=== PATIENT | female | born 1965 | race Caucasian/White ===

== ENCOUNTER 2020-01-05 18:37 | Observation (INO) | payer OTHER, SELFPAY ==
[2020-01-05] VITALS (8 sets, daily range): BP systolic 126–177; BP diastolic 66–99; PULSE 76–96; RESP 14–22; TEMP 36.1–36.8; O2SAT 93–100; BMI 44.3
--- NOTE | ~2020-01-05 | NM_ITS ---
EXAMINATION: RENETTA holman renal scan DATE: 01/07/2020 13:53 INDICATION: Left hydronephrosis. TECHNIQUE: 8.3 mCi Tc-99m MAG3 was administered IV. 40 mg furosemide was administered IV immediately afterward. The patient was scanned in the supine position. A posterior abdominal radionuclide angiog jazmín was obtained. A subsequent time course of static images of the kidneys, ureters, and bladder was obtained. COMPARISON: Postoperative CT studies dated 01/06/2020 and 01/05/2020 respectively. FINDINGS: The posterior abdominal radionuclide angiogram and sequential static images show normal position, and morphology of the kidneys. There is relative enlargement of the left kidney with central photopenic defect consistent with hydronephrosis. Peak renal parenchymal uptake was >30 min in left kidney and 3 .5 min in right kidney (normal peak 3-5 minutes). The relative early renal uptake was 26% on the rig ht and 74% on the left (<40% is abnormal). No abnormalities of the ureters or bladder are seen. There is no evident activity clearance from the left kidney with continually rising left renal activi ty curve throughout the 30 minutes of imaging. T1/2 for clearance of activity from the right kidney and proximal collecting system was 19 minutes. Notes on interpretation: T1/2 <10 minutes is normal, 10-15 minutes is low grade obstruction of questi onable clinical significance, 15-20 minutes is partial obstruction that is likely clinically signific ant, >20 minutes is high grade obstruction. Note that false positives may be seen with supine positio walter, dehydration, severely dilated nonobstructed kidney, atonic collecting system, poor renal functi on, and chronic furosemide use. IMPRESSION: 1. Severe left hydronephrosis with no evident excretion of activity into the centrally dilated renal collecting system and with significantly decreased relative left renal function. 2. Delayed right renal activity clearance with T1/2 of 19 minutes which could be due to partial obst ruction which is likely clinically significant or false-positive due to poor renal function. Reviewed, dictated and finalized at location A. IMPRESSION: 1. Severe left hydronephrosis with no evident excretion of activity into the c entrally dilated renal collecting system and with significantly decreased relat carlos left renal function. 2. Delayed right renal activity clearance with T1/2 of 19 minutes which could be due to partial obstruction which is likely clinically significant or false-p ositive due to poor renal function.
--- NOTE | ~2020-01-05 | XR_ITS ---
EXAMINATION: XR abdomen/kub 1V DATE: 01/05/2020 21:49 INDICATION: Right renal stone TECHNIQUE: A supine view of the abdomen on 2 radiographs was obtained. COMPARISON: CT dated 01/05/2020 FINDINGS: Severe left-sided and moderate right-sided hydroureteronephrosis. 3 mm obstructing stone at right ure terovesicular junction is subtly visible projecting over the coccyx. Postoperative status with surgic al clips in the pelvis and along both sides of the lower lumbar spine. Moderate to severe bilateral h ip osteoarthritis. Cholecystectomy clips in the right upper quadrant. Visualized lung bases are clear . Normal bowel gas pattern. IMPRESSION: 1. 3 mm obstructing stone at the right ureterovesicular junction. 2. Moderate right-sided and severe left-sided hydroureteronephrosis. Reviewed, dictated and finalized at location A.
--- NOTE | ~2020-01-05 | XR_ITS ---
EXAMINATION: XR retrograde pyelo w/stent RT DATE: 01/06/2020 09:48 INDICATION: Burning urination and right-sided pain. TECHNIQUE: 36 fluoroscopic images of the abdomen and pelvis were obtained during procedure performed by Dr. Jacome. Radiologist was not present for the imaging or procedure. The amount of fluoroscopy time used during this procedure was 1.2 minutes. COMPARISON: CT dated 01/05/2020 FINDINGS: Initial images demonstrate cannulation and advancement of a wire along the right ureter into the righ t renal pelvis. Injection of contrast into the right ureter demonstrates mild to moderate right hydro nephrosis. Subsequently a right internal ureteral stent is placed with loops formed in the right sheri l pelvis and in the bladder. Contrast is seen within the severely dilated left renal collecting syste m and ureter on the initial image suggests this represents residual excreted contrast from the earlie r contrast-enhanced CT study. There are multiple images demonstrating what appears be an unsuccessful attempt to advance a wire or catheter beyond the distal left ureter. Postoperative changes are seen with surgical clips in the pelvis and on either side of the lumbosacral spine. IMPRESSION: 1. Fluoroscopy utilized during right internal ureteral stent placement mild to moderate right hydrone phrosis. 2. Severe left hydroureteronephrosis with apparent unsuccessful attempt at left ureteral stent placem ent with wire appearing advanced only into the distal left ureter. See procedure note for further det ail. Reviewed, dictated and finalized at location A. IMPRESSION: 1. Fluoroscopy utilized during right internal ureteral stent placement mild to moderate right hydronephrosis. 2. Severe left hydroureteronephrosis with apparent unsuccessful attempt at left ureteral stent placement with wire appearing advanced only into the distal lef t ureter. See procedure note for further detail.
--- NOTE | ~2020-01-05 | CT_ITS ---
EXAMINATION: CT abdomen pelvis w con EXAM DATE: 01/05/2020 19:55 INDICATION: Right lower quadrant pain. TECHNIQUE: Spiral CT of the abdomen and pelvis was performed following intravenous injection of 100 m L Omnipaque 350. Axial, coronal and sagittal images were reviewed. The dose-length product (DLP) fo r this examination was 1247.18 mGy-cm. The exposure was tailored according to patient size (auto mA exposure control), and iterative reconstruction (ASIR) was used as additional dose reduction techniqu e. Comparison is made to prior examination from 12/07/2018. FINDINGS: The liver, spleen, adrenal glands and pancreas are unremarkable. Gallbladder is unremarkab le. No biliary obstruction. There is a right UVJ 3 mm stone with mild right-sided obstructive nephr opathy. The uterus is not identified and has likely been surgically resected. The bladder is unrema rkable. There is no retroperitoneal or pelvic lymphadenopathy. The appendix is normal. The stomach and small bowel are unremarkable. There is expected amount of c olonic stool. No free intraperitoneal gas. The heart is normal in size. There are no pericardial or pleural effusions. The lung bases are unremarkable. There are no osteoblastic or osteolytic les ions identified. IMPRESSION: 1. Right UVJ 3 mm stone, mild obstructive nephropathy. Urologist consultants would appreciate KUB as baseline for follow-up, treatment planning. Reviewed, dictated and finalized at location A.
[2020-01-05 19:21] LABS: Basophils Percent Auto 0.3 % (0.2-1.2); Eosinophils Percent Auto 0.4 % (0-4.4); Hematocrit 41.5 % (37.0-47.0); Hemoglobin 13.6 g/dL (12.0-15.0); Immature Granulocyte Absolute 0.04 K/mm3 (0.00-0.031); Immature Granulocyte Percent A 0.4 % (0-0.5); Lymphocytes Absolute Auto 0.96 K/mm3 (0.9-3.2); Lymphocytes Percent Auto 9.6 % (18.3-44.2); Mean Corpuscular HGB Conc 32.8 g/dl (32-36); Mean Corpuscular Hemoglobin 29.3 pg (26-34); Mean Corpuscular Volume 89.4 fl (80-100); Mean Platelet Volume 10.2 fl (7.4-10.4); Monocytes Absolute Auto 0.7 K/mm3 (0.1-0.6); Monocytes Percent Auto 6.6 % (2.6-8.5); Neutrophils Absolute Auto 8.2 K/mm3 (1.3-6.7); Neutrophils Percent Auto 82.7 % (45.5-73.1); Platelet Count Result 293 k/mm3 (150-375); Red Blood Count 4.64 M/mm3 (4.2-5.4); Red Cell Distribution Width 13.4 % (11.5-14.5)
[2020-01-05 19:34] LABS: Add Urine Microscopic? YES; Appearance Urine Clear (Clear); Bilirubin Urine Negative (Negative); Blood Urine 3+ (Negative); Color Urine Yellow (Yellow); Glucose Urine UA Negative (Negative); Ketones Urine Negative (Negative); Leukocyte Esterase Ur Negative LEU/UL (Negative); Mucus Urine Rare /lpf; Nitrate Urine Negative (Negative); Protein Urine Negative (Negative); RBC Urine 21-50 /hpf (0-2); Specific Grav Ur 1.015 (1.001-1.035); Squamous Epithelial Cell Urine Occasional /hpf (Few); Urobilinogen Urine Negative mg/dL (<2.0)
--- NOTE | 2020-01-05 19:35 | ED.ABDPAIN ---
HPI - Abdominal Pain General Chief Complaint: Abdominal Pain Stated Complaint: R SIDED ABD PAIN, N/V Time Seen by Provider: 01/05/20 19:29 History of Present Illness HPI narrative: Patient presents with right lower abdominal pain since last night. She had symptoms of UTI and called her urologist this morning and was put on Levaquin. About 3 in the afternoon the lower right pain got worse. She gauges the pain at 8 out of 10. She has been vomiting with nausea. She had a fever of 100.2. She still has her appendix. She has a surgical history of cholecystectomy, tonsillectomy, and pelvic surgery due to cervical cancer. She has lymphedema from radiation to the pelvis. Does not smoke cigarettes, she rarely drinks alcohol, does not do drugs. MD elicited complaint: abdominal pain Pertinent past history: other (Cervical cancer with surgery and radiation.) Onset (ago): day(s) Pain Consistency: constant Location: RLQ Severity: severe Pain scale (0-10): 8 Radiation: none Migration to: no migration Exacerbating factors: nothing Relieving factors: nothing Associated symptoms: nausea, vomiting, fever and chills Treatments prior to arrival: other (Levaquin) Related Data Home Medications Medication Instructions Recorded Confirmed ibuprofen 01/05/20 levothyroxine 01/05/20 lisinopril-hydrochlorothiazide tablet 01/05/20 nitrofurantoin monohyd/m-cryst 01/05/20 Allergies Allergy/AdvReac Type Severity Reaction Status Date / Time Sulfa (Sulfonamide AdvReac Intermediate NAUSEA Verified 01/05/20 18:53 Antibiotics) Review of Systems Review of Systems: Narrative: CONSTITUTIONAL: She has had fever. EYES: Denies visual changes, redness, or discharge. ENT: Denies rhinorrhea, congestion, sore throat, or otalgia. CARDIOVASCULAR: Denies chest pain, palpitations, or edema. RESPIRATORY: Denies cough or dyspnea. GASTROINTESTINAL: She has abdominal pain, nausea, vomiting, but not or diarrhea. GENITOURINARY: Denies dysuria or hematuria. SKIN: Denies rash or itching. MUSCULOSKELETAL: Denies back pain, joint pain, or myalgia. NEUROLOGIC: Denies headache, numbness, or weakness. . All systems reviewed & are unremarkable except as noted in HPI and below PMFSH Past Medical History Medical History History of cervical cancer Surgical History Surgical History (Updated 01/05/20 @ 19:39 by Elana Chavez MD) History of cholecystectomy History of tonsillectomy Social History Social History (Updated 01/05/20 @ 19:39 by Elana Chavez MD) Smoking status: Never smoker Alcohol intake: current Alcohol use details: Rarely Gender identity (if verbalized by the patient): Female Exam Narrative: Exam Narrative: GENERAL: Well-appearing, well-nourished, and in no acute distress. HEAD: Normocephalic, atraumatic. EYES: PERRLA and EOMI. ENT: Nares clear, no rhinorrhea or epistaxis. Mucous membranes dry. NECK: Supple. CHEST: Clear to auscultation. No respiratory distress. HEART: Regular rate and rhythm. No murmur heard. Normal peripheral pulses. ABDOMEN: Soft, nontender, nondistended, normal active bowel sounds. EXTREMITIES: Normal range of motion. Huge lymphedema SKIN: Warm, dry, no rash. NEURO: No focal deficits. Alert and oriented x3. PSYCH: Normal mood and affect. Const: General: no acute distress and alert Orientation/consciousness: patient oriented x3 Course Reevaluation(s) Reevaluation #1: Pdvi-lc-papk with the patient to explain about the 3 mm kidney stone. She says she still in a lot of pain, and still has the nausea. I will call the urologist to get her admitted to the hospital for overnight observation. Explained about straining the urine to find the stone. Date: 01/05/20 Time: 20:37 Consultations Consultation #1: Call the urologist on-call, Dr. Jacome. he will do the consult he requests that the hospitalist admit the patient. Date: 01/05/20 Time: 20:35 Consultati
[2020-01-05 19:41] LABS: Alanine Aminotransferase 23 U/L (4-35); Albumin Level 4.1 g/dL (3.5-5.1); Alkaline Phosphatase 89 U/L (38-126); Anion Gap 9 mmol/L (8-16); Aspartate Amino Transferase 24 U/L (14-36); Bilirubin,Total 0.3 mg/dL (0.2-1.3); Blood Urea Nitrogen 27 mg/dL (7-17); Calcium 9.1 mg/dL (8.4-10.2); Carbon Dioxide 27 mmol/L (22-30); Chloride 102 mmol/L (98-107); Estimated CRCL calculation 50 ml/min; Estimated Glomerular Filt Rate 36; Glucose 129 mg/dL (65-105); Lipase 55 U/L (23-300); Potassium 3.9 mmol/L (3.4-5.0); Sodium 138 mmol/L (137-145)
[2020-01-05] MEDS: SODIUM CHLORIDE 0.9% IV 1,000 ML 999 ML IV CONT ×2 (19:46→21:00)
[2020-01-05] MEDS: ONDANSETRON INJ 4 MG/2 ML VIAL IV PUSH ×2 (19:46→22:17)
[2020-01-05] MEDS: MORPHINE SULFATE 4 MG/ML INJ IV PUSH ×2 (19:46→21:00)
--- NOTE | 2020-01-05 20:10 | PC.NURSE ---
EDP notified that patient reports increasing pain and requesting medication. No orders obtained at this time.
[2020-01-05] MEDS: TAMSULOSIN HCL 0.4 MG CAPSULE PO (21:01)
[2020-01-05] MEDS: METOCLOPRAMIDE HCL INJ 10 MG/2 ML VIAL IV PUSH (21:01)
--- NOTE | 2020-01-05 22:08 | PC.NURSE ---
Patient reports increasing pain and nausea at this time.
--- NOTE | 2020-01-05 23:35 | PC.NURSE ---
This patient, Raquel Nova, was admitted to 2 Medical Room 255-01. Patient/family oriented to hospital policies and general routines including ID bracelet, bed and alarms, visiting hours, pain management, procedures, bathroom and other care routines, personal items, smoking policy, room service/diet, and visiting hours. Valuables list has been completed. Information on how to activate the Rapid Response Team has been discussed. Patient/Family are encouraged to report perceived risks to care and to ask questions if they do not understand what they are told or what they should do.
[2020-01-05] MEDS: SODIUM CHLORIDE 0.9% IV 1,000 ML 125 ML IV CONT (23:49)
[2020-01-06] VITALS (14 sets, daily range): BP systolic 113–144; BP diastolic 53–74; PULSE 74–97; RESP 12–18; TEMP 36.2–36.9; O2SAT 94–100
[2020-01-06] MEDS: ONDANSETRON INJ 4 MG/2 ML VIAL IV PUSH (02:31)
[2020-01-06] MEDS: PROMETHAZINE HCL 25 MG/ML AMPUL IM (04:46)
--- NOTE | 2020-01-06 05:13 | PM.IMHP ---
H&P: HPI History of Present Illness Date/Time: 01/06/20 04:15 Chief complaint: burning with urination, right side pain Narrative: Raquel Nova is a 54 year old female with a past medical history of morbid obesity, chronic lymphedema, cervical cancer and prior ureteral stricture who presented to the ER with right-sided abdominal pain. The patient reported that on Tuesday she began having dysuria and increased urinary frequency from her baseline as well as some right upper abdominal pain. The symptoms are similar to her prior episodes of UTI. (She reports that she usually has UTIs start on the left side following her left ureteral stricture with subsequent ureteral resection and reattachment procedure in 2017.) She called her urologist office and they called her in a script for nitrofurantoin. despite taking 2 doses of nitrofurantoin her pain continued to worsen. Her pain was a 10/10 intensity in the ER. Her pain is now down to a 4/10 in intensity. She denies any hematuria. It is accompanied by persistent nausea and vomiting. She has been receiving Zofran multiple times throughout the night without improvement in her nausea and vomiting. she denies any hematemesis. She has a variable bowel movements but these are unchanged from her baseline. She has not had any hematochezia or melena. She does have issues with intermittent urinary incontinence in part due to scar tissue in her pelvis from her radiation therapy with her cervical cancer. She has chronic lymphedema also had associated with her prior radiation therapy. She does not have a history of kidney stones. She has not been having any fevers or chills. Review of Systems Review of Systems: Narrative: 12 systems were reviewed with pertinent positives and negatives per HPI. Except as documented in the HPI, all other systems were reviewed and are negative. [facility] Past Medical History Medical History (Updated 01/06/20 @ 05:50 by Maria T Bullard DO) Chronic acquired lymphedema History of cervical cancer Treated with radiation therapy and chemotherapy with complications including chronic lymphedema, and ureteral stricture due to radiation Hypothyroidism Morbid obesity Surgical History Surgical History (Updated 01/06/20 @ 05:28 by Maria T Bullard DO) History of section due to breech presentation History of cholecystectomy History of tonsillectomy Ureteral stricture, left status post resection with reimplantation of the ureter May 2016 Family History Family History (Updated 01/05/20 @ 23:43 by Alexandria Cuevas RN) Mother Breast cancer Cerebrovascular accident Diabetes mellitus Heart disease Father Cerebrovascular accident Social History Social History (Updated 01/06/20 @ 05:39 by Maria T Bullard DO) Social History: Primary care physician: Dr. Hooks Code status: Full code Smoking status: Never smoker Alcohol intake: current Alcohol use details: She drinks 1 alcoholic beverage a month on average. Substance use: never Additional living arrangements comments: She is andlives with her 19-year-old son. She also has a 29-year-old son. 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 Gender identity (if verbalized by the patient): Female Spiritual care concerns: No Meds Home Medications and Allergies Home Medications Medication Instructions Recorded Confirmed Type ibuprofen 600 mg PO QID PRN 01/05/20 01/05/20 History levothyroxine 50 mcg PO DAILY 01/05/20 01/05/20 History lisinopril-hydrochlorothiazide 1 tablet PO DAILY 01/05/20 01/05/20 History nitrofurantoin monohyd/m-cryst 100 mg PO BID 01/05/20 01/05/20 History Allergies Allergy/AdvReac Type Severity Reaction Status Date / Time Sulfa (Sulfonamide AdvReac Intermediate NAUSEA Verified 01/05/20 18:53 A
[2020-01-06 05:35] LABS: Hematocrit 36.6 % (37.0-47.0); Hemoglobin 11.8 g/dL (12.0-15.0); Mean Corpuscular HGB Conc 32.2 g/dl (32-36); Mean Corpuscular Hemoglobin 29.2 pg (26-34); Mean Corpuscular Volume 90.6 fl (80-100); Mean Platelet Volume 9.9 fl (7.4-10.4); Platelet Count Result 239 k/mm3 (150-375); Red Blood Count 4.04 M/mm3 (4.2-5.4); Red Cell Distribution Width 13.6 % (11.5-14.5); White Blood Count 9.7 K/mm3 (4.5-10.0)
[2020-01-06 06:03] LABS: Anion Gap 4 mmol/L (8-16); Blood Urea Nitrogen 25 mg/dL (7-17); Calcium 8.1 mg/dL (8.4-10.2); Carbon Dioxide 26 mmol/L (22-30); Chloride 107 mmol/L (98-107); Estimated CRCL calculation 47 ml/min; Estimated Glomerular Filt Rate 34; Glucose 126 mg/dL (65-105); Sodium 137 mmol/L (137-145)
[2020-01-06] MEDS: SODIUM CHLORIDE 0.9% IV 1,000 ML 125 ML IV CONT (06:57)
--- NOTE | 2020-01-06 07:15 | WPDANESEPPF ---
Anes - Initial Pre Proc Eval Procedure: Operation Date: 01/06/20 08:30 Proposed Procedures p Cysto, Ureteroscopy, RPG, Laser Lithotripsy, Stone Ext, Stent Placement - Almas Jacome MD Date/Time: 01/06/20 07:15 Surgeon: Flor Jacome Pre Op Diagnosis: burning with urination, right side pain Patient Data Age: 54 Gender: F Height: 1.65 m Weight: 120.9 kg Last Vital Signs Temp 36.3 C L 01/06/20 06:00 Pulse 74 01/06/20 06:00 Resp 18 01/06/20 06:00 BP 143/68 H 01/06/20 06:00 Pulse Ox 99 01/06/20 06:00 Allergies Allergy/AdvReac Type Severity Reaction Status Date / Time Sulfa (Sulfonamide AdvReac Intermediate NAUSEA Verified 01/05/20 18:53 Antibiotics) Home Medications Medication Instructions Recorded Confirmed Type ibuprofen 600 mg PO QID PRN 01/05/20 01/05/20 History levothyroxine 50 mcg PO DAILY 01/05/20 01/05/20 History lisinopril-hydrochlorothiazide 1 tablet PO DAILY 01/05/20 01/05/20 History nitrofurantoin monohyd/m-cryst 100 mg PO BID 01/05/20 01/05/20 History Laboratory Tests 01/05/20 01/05/20 01/05/20 19:12 19:12 19:21 WBC 10.0 K/mm3 K/mm3 (4.5-10.0) RBC 4.64 M/mm3 M/mm3 (4.2-5.4) Hgb 13.6 g/dL g/dL (12.0-15.0) Hct 41.5 % % (37.0-47.0) MCV 89.4 fl fl (80-100) MCH 29.3 pg pg (26-34) MCHC 32.8 g/dl g/dl (32-36) RDW 13.4 % % (11.5-14.5) Plt Count 293 k/mm3 k/mm3 (150-375) MPV 10.2 fl fl (7.4-10.4) Immature Gran % (Auto) 0.4 % % (0-0.5) Neut % (Auto) 82.7 % H % (45.5-73.1) Lymph % (Auto) 9.6 % L % (18.3-44.2) Dunn % (Auto) 6.6 % % (2.6-8.5) Eos % (Auto) 0.4 % % (0-4.4) Baso % (Auto) 0.3 % % (0.2-1.2) Lymph # (Auto) 0.96 K/mm3 K/mm3 (0.9-3.2) Dunn # (Auto) 0.7 K/mm3 H K/mm3 (0.1-0.6) Eos # (Auto) 0.0 K/mm3 K/mm3 (0-0.3) Baso # (Auto) 0.0 K/mm3 K/mm3 (0.0-0.1) Abs Immat Gran (auto) 0.04 K/mm3 H K/mm3 (0.00-0.031) Absolute Neuts (auto) 8.2 K/mm3 H K/mm3 (1.3-6.7) Absolute Nucleated RBC 0.0 K/mm3 K/mm3 (0.0-0.012) Nucleated RBC % 0.0 % % (0.0-0.2) Sodium 138 mmol/L mmol/L (137-145) Potassium 3.9 mmol/L mmol/L (3.4-5.0) Chloride 102 mmol/L mmol/L (98-107) Carbon Dioxide 27 mmol/L mmol/L (22-30) Anion Gap 9 mmol/L mmol/L (8-16) BUN 27 mg/dL H mg/dL (7-17) Creatinine 1.50 mg/dL H mg/dL (0.7-1.0) Estim Creat Clear Calc 50 ml/min ml/min Estimated GFR 36 L (59 - ) Glucose 129 mg/dL H mg/dL (65-105) Calcium 9.1 mg/dL mg/dL (8.4-10.2) Total Bilirubin 0.3 mg/dL mg/dL (0.2-1.3) AST 24 U/L U/L (14-36) ALT 23 U/L U/L (4-35) Alkaline Phosphatase 89 U/L U/L (38-126) Total Protein 7.0 g/dL g/dL (6.3-8.2) Albumin 4.1 g/dL g/dL (3.5-5.1) Lipase 55 U/L U/L (23-300) Urine Color Yellow (Yellow) Urine Appearance Clear (Clear) Urine pH 6.0 (5.0-9.0) Ur Specific Aurora 1.015 (1.001-1.035) Urine Protein Negative mg/dL mg/dL (Negative) Urine Glucose (UA) Negative mg/dL mg/dL (Negative) Urine Ketones Negative mg/dL mg/dL (Negative) Ur Blood (Man) 3+ H (Negative) Urine Nitrate Negative (Negative) Urine Bilirubin Negative (Negative) Urine Urobilinogen Negative mg/dL mg/dL (<2.0) Leukocyte Esterase Rfl Negative RASHAUN/UL RASHAUN/UL (Negative) Urine RBC 21-50 /hpf H /hpf (0-2) Urine WBC 4-6 /hpf H /hpf Ur Squamous Epith Cells Occasional /hpf /hpf (Few) Urine Mucus Rare /lpf /lpf 01/06/20 01/06/20 05:27 05:27 WBC 9.7 K/mm3 K/mm3
--- NOTE | 2020-01-06 08:00 | PC.NURSE ---
To OR per hopsital bed, IV intact and locked. Report given to MAGGI Zaidi.
[2020-01-06] MEDS: FAMOTIDINE 20 MG/2 ML VIAL IV PUSH (08:06)
[2020-01-06] MEDS: SCOPOLAMINE 1.5 MG PATCH TRANSDERM (08:06)
[2020-01-06] MEDS: LACTATED RINGERS 1,000 ML 30 ML IV CONT (08:07)
--- NOTE | 2020-01-06 08:10 | WPDURCON ---
Assessment and Plan Assessment and plan (1) Kidney stone: Onset Date: ~01/05/20 Code(s): N20.0 - Calculus of kidney Status: Acute Assessment and Plan: Patient with PO intolerance due to 3mm distal right ureteral stone. PLAN: -Admit to hospitalist for pain control, IVF, and urine strainer for every void -NPO at midnight -Patient denies interval stone passage -Patient will be added on for OR today for cystoscopy, right retrograde pyelogram, ureteroscopy, holmium laser lithotripsy, ureteral stent Urology Consult Note HPI Date Seen: 01/06/20 Primary Care Provider: WIRELESS COMMUNICATIONS ENGINEER PHYSICIAN Consult Narrative Narrative: Raquel Nova is a 54 year old female w/ past history of cervical cancer w/ pelvic radiation who presents to the ER with PO intolerance and right flank pain. CT AP shows a 3mm distal right ureteral stone with hydroureter and a delayed nephrogram on the right. The left ureter is dilated proximally to the level of the vessels but without a stone and without a delayed nephrogram. No other stones. UA uninfected, WBC 10k, but Cr 1.5. This is her first ever kidney stone. However, she has had a ureteral stent before with Dr. Harden for her left hydroureter due to radiation changes. Review of Systems Review of Systems: All systems reviewed & are unremarkable except as noted in HPI and below PMFSH Past Medical History Medical History (Updated 01/06/20 @ 07:15 by Rolf Armendariz DO) Chronic acquired lymphedema History of cervical cancer Treated with radiation therapy and chemotherapy with complications including chronic lymphedema, and ureteral stricture due to radiation Hypertension Hypothyroidism Morbid obesity Surgical History Surgical History (Updated 01/06/20 @ 05:28 by Maria T Bullard DO) History of section due to breech presentation History of cholecystectomy History of tonsillectomy Ureteral stricture, left status post resection with reimplantation of the ureter May 2016 Family History Family History (Updated 01/05/20 @ 23:43 by Alexandria Cuevas RN) Mother Breast cancer Cerebrovascular accident Diabetes mellitus Heart disease Father Cerebrovascular accident Social History Social History (Updated 01/06/20 @ 05:39 by Maria T Bullard DO) Social History: Primary care physician: Dr. Hooks Code status: Full code Smoking status: Never smoker Alcohol intake: current Alcohol use details: She drinks 1 alcoholic beverage a month on average. Substance use: never Additional living arrangements comments: She is andlives with her 19-year-old son. She also has a 29-year-old son. 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 Gender identity (if verbalized by the patient): Female Spiritual care concerns: No Meds Home Medications and Allergies Home Medications Medication Instructions Recorded Confirmed Type ibuprofen 600 mg PO QID PRN 01/05/20 01/05/20 History levothyroxine 50 mcg PO DAILY 01/05/20 01/05/20 History lisinopril-hydrochlorothiazide 1 tablet PO DAILY 01/05/20 01/05/20 History nitrofurantoin monohyd/m-cryst 100 mg PO BID 01/05/20 01/05/20 History Allergies Allergy/AdvReac Type Severity Reaction Status Date / Time Sulfa (Sulfonamide AdvReac Intermediate NAUSEA Verified 01/05/20 18:53 Antibiotics) Vital Signs Vital Signs - 24 hr 01/05/20 18:45 01/05/20 18:55 01/05/20 20:06 Temperature 36.4 C L 36.7 C Pulse Rate 94 93 93 Respiratory Rate 20 19 22 H Blood Pressure 177/99 H 156/87 H 167/78 H Pulse Oximetry 98 98 100 Exam Const: General: uncomfortable Eyes: General: appearance normal, both eyes and all related structures Resp: Effort & Inspection: normal respiratory effort Cardio: Rate: regular rate Skin: Lesions: no lesions noted
[2020-01-06] MEDS: ceFAZolin 2 GM/D5W 50 ML 2 GM/50 ML BAG IVPB (08:23)
[2020-01-06] MEDS: LIDOCAINE HCL 2% GEL UROJET 10 ML PKG MUCOUS MEM (08:52)
--- NOTE | 2020-01-06 09:23 | P.OPB_ITS ---
Procedure Note - Brief Procedure Note - Brief Date of procedure: 01/06/20 Pre-op diagnosis: burning with urination, right side pain Surgeon: PREOP DIAGNOSIS: N20.1 (Right ureteral calculus) POSTOP DIAGNOSIS: Right ureteral calculus AND Left ureteral stricture, Left hydorureteronephrosis FINDINGS: 3-4mm distal right ureteral stone identified and removed via basket extraction. On Briquette Operator film, contrast clearly retained in the LEFT collecting system despite not giving a retrograde pyelogram -- consistent with obstruction. Unable to pass wire beyond distal left ureter despite multiple attempts. PROCEDURES PERFORMED: #1) Right ureteroscopy, basket extraction of stone #2) Cystoscopy, Right Ureteral Stent Placement, Retrograde Pyelogram #3) Left Diagnostic ureteroscopy #4) Left retrograde pyelogram #3) Radiologic supervision and interpretation Almas Jacome MD
--- NOTE | 2020-01-06 09:37 | PM.PROC ---
Procedure Note - Detailed Date of procedure: 01/06/20 Pre-op diagnosis: burning with urination, right side pain Surgeon: PREOP DIAGNOSIS: N20.1 (Right ureteral calculus) POSTOP DIAGNOSIS: Right ureteral calculus AND Left ureteral stricture, Left hydorureteronephrosis FINDINGS: 3-4mm distal right ureteral stone identified and removed via basket extraction. On Tape Recorder Repairer film, contrast clearly retained in the LEFT collecting system despite not giving a retrograde pyelogram -- consistent with obstruction. Unable to pass wire beyond distal left ureter despite multiple attempts. PROCEDURES PERFORMED: #1) Right ureteroscopy, basket extraction of stone #2) Cystoscopy, Right Ureteral Stent Placement, Retrograde Pyelogram #3) Left Diagnostic ureteroscopy #4) Left retrograde pyelogram #3) Radiologic supervision and interpretation OPERATIVE DETAILS: Prior to the operation and informed consent was obtained. The patient was brought back to the operative suite and a detail timeout was performed. General anesthesia was induced without complication. The patient was administered IV antibiotics in the prophylactic form. The patient was positioned in the dorsal lithotomy position with close attention to all pressure points and was prepped and draped in sterile fashion. We began the case using a rigid cystoscope to gain access into the bladder under direct visualization per urethra. Cystoscopy was remarkable for blanched urothelial and inflammation, consistent with radiation cystitis. No papillary bladder tumors seen. We turned our attention to the right ureteral orifice and cannulated it using an 8/10 ureteral dilator and Bentson wire. We radiologically confirmed the wire to pass up into the renal pelvis before advancing the ureteral dilator into the distal right ureter over our wire. On our auto suspension and steering mechanic film, I noticed that the LEFT collecting system was dilated, tortuous, and full of contrast. Since we did not give contrast at this point, it must be retained from her contrasted CT AP the prior day. This finding was consistent with obstruction, so we elected to attempt to stent it after addressing the right sided stone, first. Using a 7 Ukrainian semirigid ureteroscope I was able to traverse into the right ureter next to the wire and identified the stone. It was 4mm and distally located. The stone was identified and basket extracted using a zero-tipped nitinol basket. This was sent for chemical analysis. We performed a retrograde pyelogram through the scope to keep our wire in place. With our wire in place, we placed a 4.8Fr 22-30Fr double-J ureteral stent. We did not leave a string attached. We turned our attention to the left ureteral orifice, but it was not identifiable. Using the right UO and stent as a marker, and tracking along the trigone, there was a subtle mound of mucosa with a mucosal fold that did not have a lumen. Using our Bentson wire, I probed this area, and it gave a few centimeters. I passed the 8Fr dilator into this opening and performed a retrograde pyelogram -- initially it appeared to be a false lumen, but then a clearly demarcated column of contrast passed into the distal ureter, suggesting patency. I used the rigid ureteroscope to look into the distal ureter and appreciated that there was a false passage. However, at 2 o'clock there appeared to be a tribal lumen. I passed the wire through our ureteroscope and radiologically the wire passed easily for another 3-5cm along the course of the ureter on the retrograde pyelogram. Unfortunately, it met resistance again at this level, which is likely around the level of the iliacs. For the next 20 minutes, I made multiple attempts utilizing a combination of the Bentson wire, Superstiff wire, 8/10 dilatory, rigid cystoscope, and rigid ureteroscope to attempt to get anything up to the level of this more proximal obstruction, but was unable to do so. Given her prior radiation for cervical cancer, lexy
--- NOTE | 2020-01-06 10:55 | PC.NURSE ---
Returned from OR per hospital bed. Report received from MAGGI Zaidi.
--- NOTE | 2020-01-06 14:41 | PM.IMPN ---
Progress Note: A&P Assessment and Plan (1) Kidney stone: Onset Date: ~01/05/20 Code(s): N20.0 - Calculus of kidney Status: Acute Assessment and Plan: ----- 3 mm obstructing stone on the right. Patient had a cystoscopy with a stent placement on the right side. Patient is not on any antibiotics but was given 1 dose of Rocephin in the ER. Her white blood cell count is normal, no fevers, and UA does not suggest infection at this time. Will monitor (2) Intractable nausea and vomiting: Code(s): R11.2 - Nausea with vomiting, unspecified Status: Acute Assessment and Plan: ----- resolved. Likely due to pain and kidney stone. . (3) Hydroureter: Code(s): N13.4 - Hydroureter Status: Acute Assessment and Plan: ----- Stent placed in the right but patient also has left hydronephrosis that is severe. It is likely chronic but the plan is to keep overnight and Urology is going to see her in the morning and Are considering nephrostomy tube. patient has a history of radiation which is likely the cause And is Likely chronic without any evidence of infection. she sees Dr. bautista usually and he will see her tomorrow. her creatinine, however, is increased. We will redraw tomorrow to see if it has improved. (4) Prerenal azotemia: Code(s): R79.89 - Other specified abnormal findings of blood chemistry Status: Acute Assessment and Plan: ----- BUN and creatinine still elevated. Will continue IV fluids but decrease the rate. (5) Hydronephrosis: Code(s): N13.30 - Unspecified hydronephrosis Status: Acute Assessment and Plan: ----- Of the left, see above Time Spent With Patient Time with patient: 25 - 35 minutes Subjective Date/time seen: 01/06/20 14:41 Interval history: Pt is a 54-year-old female here for abdominal pain showed to have a right kidney stone and left severe hydronephrosis. Patient was seen today and states her abdominal pain has improved. She was seen after her procedure and has urinated and not had much discomfort since then. She has tried clear liquids and did well with that. She denies chest pain, shortness of breath, fevers, chills, nausea, vomiting, diarrhea or constipation. Review of Systems Review of Systems: All systems reviewed & are unremarkable except as noted in HPI and below Exam Narrative: Exam Narrative: General: Overweight patient resting comfortably in bed in no acute distress HEENT: normocephalic Neck: supple Neuro: Alert and oriented x4 CV:RRR Resp:CTA Abd: Soft, non distended. No pain to palpation. Positive bowel sounds Extremities: No swelling, erythema, or pain to palpation. Objective Data Vital Signs Vital Signs: Vital Signs - 24 hr 01/05/20 18:45 01/05/20 18:55 01/05/20 20:06 Temperature 97.5 F L 98.1 F Pulse Rate 94 93 93 Respiratory Rate 20 19 22 H Blood Pressure 177/99 H 156/87 H 167/78 H Pulse Oximetry 98 98 100 01/05/20 20:54 01/05/20 22:06 01/05/20 22:44 Temperature 98.2 F 97.6 F 98.3 F Pulse Rate 90 89 96 Respiratory Rate 18 14 16 Blood Pressure 148/66 H 128/68 134/73 Pulse Oximetry 97 97 99 01/05/20 23:18 01/05/20 23:42 01/06/20 06:00 Temperature 97.0 F L 97.3 F L Pulse Rate 76 85 74 Respiratory Rate 18 20 18 Blood Pressure 126/73 146/81 H 143/68 H Pulse Oximetry 100 93 99 01/06/20 09:25 01/06/20 09:30 01/06/20 09:45 Temperature 97.1 F L Pulse Rate 97 83 91 Respiratory Rate 12 14 18 Blood Pressure 113/64 127/71 132/64 Pulse Oximetry 100 100 98 01/06/20 10:00 01/06/20 10:15 01/06/20 10:30 Temperature Pulse Rate 87 95 97 Respiratory Rate 13 17 16 Blood Pressure 135/66 144/64 H 141/74 H Pulse Oximetry 94 94 95 01/06/20 11:00 01/06/20 11:15 01/06/20 11:45 Temperature 97.9 F 98.4 F 98.5 F Pulse Rate 78 85 89 Respiratory Rate 16 17 17 Blood Pressure 136/59 L 136/66 129/62 Pulse Oximetry 95 95 97
[2020-01-06] MEDS: SODIUM CHLORIDE 0.9% IV 1,000 ML 75 ML IV CONT (20:41)
[2020-01-07 02:00] VITALS: BP 151/81; PULSE 79; RESP 16; TEMP 36.4; O2SAT 96
[2020-01-07 04:27] LABS: Hematocrit 31.7 % (37.0-47.0); Hemoglobin 10.2 g/dL (12.0-15.0); Mean Corpuscular HGB Conc 32.2 g/dl (32-36); Mean Corpuscular Hemoglobin 29.1 pg (26-34); Mean Corpuscular Volume 90.3 fl (80-100); Mean Platelet Volume 9.9 fl (7.4-10.4); Platelet Count Result 224 k/mm3 (150-375); Red Blood Count 3.51 M/mm3 (4.2-5.4); Red Cell Distribution Width 13.6 % (11.5-14.5); White Blood Count 7.8 K/mm3 (4.5-10.0)
[2020-01-07 04:36] LABS: INR 1.1; Prothrombin Time 13.7 Seconds (11.1-14.7)
[2020-01-07 04:37] LABS: Partial Thromboplastin Time 27.8 SECONDS (22.3-36.8)
[2020-01-07 04:40] LABS: Anion Gap 5 mmol/L (8-16); Blood Urea Nitrogen 17 mg/dL (7-17); Calcium 7.9 mg/dL (8.4-10.2); Carbon Dioxide 26 mmol/L (22-30); Chloride 106 mmol/L (98-107); Estimated CRCL calculation 68 ml/min; Estimated Glomerular Filt Rate 52; Glucose 99 mg/dL (65-105); Potassium 3.6 mmol/L (3.4-5.0); Sodium 137 mmol/L (137-145)
[2020-01-07 06:00] VITALS: BP 113/62; PULSE 74; RESP 16; TEMP 36.1; O2SAT 97
[2020-01-07] MEDS: LEVOTHYROXINE SODIUM 50 MCG TABLET PO (06:01)
--- NOTE | 2020-01-07 07:25 | WPDUROPN2 ---
Progress Note: A&P Assessment and Plan (1) Ureteral obstruction, right: Code(s): N13.5 - Crossing vessel and stricture of ureter without hydronephrosis Status: Acute (2) Hydronephrosis: Code(s): N13.30 - Unspecified hydronephrosis Status: Acute Assessment and Plan: Patient is feeling well, no pain following right ureteral stone extraction yesterday. Left hydronephrosis is chronic in nature and may be nonobstructive. She is status post ureteral reimplantation in May 2016 and, since then, she has had persistent dilatation of her left collecting system. I will get a Lasix renal scan to see if it has changed appreciably per the from the most recent prior one done in 2017. Patient is anxious for discharge and I am comfortable with that following the renal scan. She does need intervention for left hydronephrosis a can be done as an outpatient. She will need to follow-up with us and 7-10 days for right ureteral stent removal. she should finish her course of nitrofurantoin was recently prescribed but should be no additional antibiotics at this time. Subjective Subjective Date/Time Seen: 01/07/20 07:25 Comfortable, no complaints Review of Systems Cardiovascular: Cardiovascular: Denies chest pain, Denies lightheadedness, Denies palpitations and Denies dyspnea Respiratory: Respiratory: Denies dyspnea Gastrointestinal: Gastrointestinal: Denies diarrhea, Denies nausea and Denies vomiting Genitourinary: Genitourinary: Denies hematuria and Denies dysuria Endocrine: Endocrine: Denies palpitations Exam Const: General: no acute distress Resp: Effort & Inspection: normal respiratory effort GI: Inspection: non-distended GI Palp: No abdominal tenderness and No Guarding due to palpation present (GI) Auscultation: normal bowel sounds Objective Data Vital Signs Vital Signs: Vital Signs - 24 hr 01/06/20 09:25 01/06/20 09:30 01/06/20 09:45 Temperature 97.1 F L Pulse Rate 97 83 91 Respiratory Rate 12 14 18 Blood Pressure 113/64 127/71 132/64 Pulse Oximetry 100 100 98 01/06/20 10:00 01/06/20 10:15 01/06/20 10:30 Temperature Pulse Rate 87 95 97 Respiratory Rate 13 17 16 Blood Pressure 135/66 144/64 H 141/74 H Pulse Oximetry 94 94 95 01/06/20 11:00 01/06/20 11:15 01/06/20 11:45 Temperature 97.9 F 98.4 F 98.5 F Pulse Rate 78 85 89 Respiratory Rate 16 17 17 Blood Pressure 136/59 L 136/66 129/62 Pulse Oximetry 95 95 97 01/06/20 12:45 01/06/20 18:00 01/06/20 20:00 Temperature 97.6 F 97.7 F Pulse Rate 91 90 90 Respiratory Rate 18 18 18 Blood Pressure 113/56 L 140/60 Pulse Oximetry 95 96 96 01/06/20 21:58 01/07/20 02:00 01/07/20 06:00 Temperature 97.6 F 97.5 F L 96.9 F L Pulse Rate 83 79 74 Respiratory Rate 18 16 16 Blood Pressure 115/53 L 151/81 H 113/62 Pulse Oximetry 97 96 97 Intake/Output Intake/Output: Intake & Output 01/04/20 01/05/20 01/06/20 01/07/20 23:59 23:59 23:59 23:59 Intake Total 2050 3836 150 Output Total 2365 800 Balance 0 1471 -650 Meds/Results Medications: Active Medications Generic Name Dose Route Start Last Admin Trade Name Freq PRN Reason Stop Dose Admin Fentanyl Citrate 25 mcg 01/06/20 07:17 Sublimaze IV PUSH Q2M PRN Pain Hydromorphone HCl 0.5 mg 01/05/20 21:34 01/05/20 22:18 Dilaudid Inj IV PUSH 0.5 mg Q4H PRN Administration Pain Rated 7-10 Sodium Chloride 1,000 mls @ 75 mls/hr 01/05/20 21:35 01/06/20 20:41 Normal Saline Iv IV CONT 75 mls/hr .[id number] CHANNING Administration Levothyroxine Sodium 50 mcg 01/06/20 06:30 01/07/20 06:01 Synthroid PO 50 mcg DAILY@0630 CHANNING Administration Ondansetron HCl 4 mg 01/06/20 07:17 Zofran Inj IV PUSH ONCE PRN Nausea Radiology Results: ITS Impressions Abdomen/Pelvis CT 01/05/20 20:08 IMPRESSION: 1. Right UVJ 3 mm stone, mild obstructive nephropathy. Urologist consultants would appreciate
--- NOTE | 2020-01-07 07:30 | WPDANESPN ---
Anes - Prog Note Post-Op Date/Time: 01/07/20 07:30 Cardiovascular status: normal Respiratory status: normal Airway patency: baseline Mental status: baseline Post-Op hydration status: normal Vital Signs: Last Vital Signs Temp 36.1 C L 01/07/20 06:00 Pulse 74 01/07/20 06:00 Resp 16 01/07/20 06:00 BP 113/62 01/07/20 06:00 Pulse Ox 97 01/07/20 06:00 I/O: Intake & Output 01/06/20 01/06/20 01/07/20 15:59 23:59 07:59 Intake Total 1130 1840 150 Output Total 865 800 800 Balance 265 1040 -650 Laboratory Tests 01/07/20 03:56 01/07/20 03:56 01/07/20 01/07/20 01/07/20 03:56 03:56 03:56 WBC 7.8 RBC 3.51 L Hgb 10.2 L Hct 31.7 L MCV 90.3 MCH 29.1 MCHC 32.2 RDW 13.6 Plt Count 224 MPV 9.9 PT 13.7 INR 1.1 APTT 27.8 Sodium 137 Potassium 3.6 Chloride 106 Carbon Dioxide 26 Anion Gap 5 L BUN 17 Creatinine 1.10 H Estim Creat Clear Calc 68 Estimated GFR 52 L Glucose 99 Calcium 7.9 L Post-procedural complaints: none Patient Feedback: Patient satisfied with anesthetic care.
[2020-01-07] MEDS: SODIUM CHLORIDE 0.9% IV 1,000 ML 75 ML IV CONT (09:28)
[2020-01-07 09:44] VITALS: BP 153/80; PULSE 91; RESP 18; TEMP 36.2; O2SAT 96
--- NOTE | 2020-01-07 11:00 | PM.DS ---
DS: Admitting Diagnosis Admitting Diagnosis Admitting Diagnosis: Calculus of kidney DS: Discharge Diagnosis Discharge Diagnosis (1) Kidney stone: Onset Date: ~01/05/20 Code(s): N20.0 - Calculus of kidney Status: Acute Assessment and Plan: ----- 3 mm obstructing stone on the right. Patient had a cystoscopy on 01/05 with a stent placement on the right side. Patient is not on any antibiotics but was given 1 dose of Rocephin in the ER. Her white blood cell count is normal, no fevers, and UA does not suggest infection at this time. She is to finish her macrobid that she was given outpt. f/u with urology for stent removal outpt. (2) Intractable nausea and vomiting: Code(s): R11.2 - Nausea with vomiting, unspecified Status: Acute Assessment and Plan: ----- resolved. Likely due to pain and kidney stone. . (3) Hydroureter: Code(s): N13.4 - Hydroureter Status: Acute Assessment and Plan: ----- Stent placed in the right but patient also has left hydronephrosis that is severe. Renal scan done which confirms this and shows no evident of excretion of activity with decreased left renal fx. Pts Cr 1.1 today. It also shows possible obstruction of the right. Nurse reviewed this with urology who will see outpt. Pt has a hx of radiation to the area complicating things (4) Prerenal azotemia: Code(s): R79.89 - Other specified abnormal findings of blood chemistry Status: Acute Assessment and Plan: ----- Resolved (5) Hydronephrosis: Code(s): N13.30 - Unspecified hydronephrosis Status: Acute Assessment and Plan: ----- Of the left, see above DS: Summary Hospital Course Reason for hospitalization: kidney stone Hospital Course: patient is 54-year-old female who presented emergency room for flank pain found to have a 3 mm obstructing kidney stone on the right. She underwent a cystoscopy and stent placement on the right. She was also found to have a significant hydronephrosis on the left but thought to be chronic since she has a history of radiation. Please see above. The patient's creatinine and pain improved throughout her stay and she was stable discharge. She is to follow-up with urology for additional workup and treatment and to get the stent removed. The patient had no questions and was eating and drinking well the day of discharge. She was educated about the worrisome signs and symptoms come back to emergency room for and was discharged stable condition. Her UA was not suspicious of UTI but she was started on Macrobid outpatient and she is to complete this course of antibiotics. Status at Discharge Functional status at discharge: independent ambulation Overall status at discharge: patient is back to baseline Time Spent with Patient Time attestation: Total time spent providing and/or coordinating discharge services:34 min Time spent: Greater than 30 minutes Exam Narrative: Exam Narrative: General: Overweight patient resting comfortably in bed in no acute distress HEENT: normocephalic Neck: supple Neuro: Alert and oriented x4 CV:RRR Resp:CTA Abd: Soft, non distended. No pain to palpation. Positive bowel sounds Extremities: lymphedema to bilateral lower extremities DS: Data Data Completed and Pending Pending studies at discharge: Pending at discharge 01/06/20 09:18 Surgical [PTH] Routine Labs on day of discharge: Labs from last 24 hours 01/07/20 01/07/20 01/07/20 03:56 03:56 03:56 WBC 7.8 RBC 3.51 L Hgb 10.2 L Hct 31.7 L MCV 90.3 MCH 29.1 MCHC 32.2 RDW 13.6 Plt Count 224 MPV 9.9 PT 13.7 INR 1.1 APTT 27.8 Sodium 137 Potassium 3.6 Chloride 106 Carbon Dioxide 26 Anion Gap 5 L BUN 17 Creatinine 1.10 H Estim Creat Clear Calc 68 Estimated GFR 52 L Glucose 99 Calcium 7.9 L Discharge Plan Dis
[2020-01-07] MEDS: FUROSEMIDE INJ 40 MG/4 ML VIAL IV PUSH (13:05)
[2020-01-07 13:53] VITALS: BP 151/78; PULSE 84; RESP 20; TEMP 36.6; O2SAT 98
[2020-01-07] MEDS: ONDANSETRON INJ 4 MG/2 ML VIAL IV PUSH (16:01)
[2020-01-07] MEDS: ACETAMINOPHEN 325 MG TABLET 650 MG PO (16:19)
== END 2020-01-07 17:40 | disposition home or self-care (01) ==
LOC: ANHED 21:34 → ANH2MED 21:58
PROVIDERS: Emergency Medicine; Urology; Admitting Provider Internal Medicine; Emergency Provider Emergency Medicine; PCP Family Medicine Sports Medicine; Visit Provider Internal Medicine
PROC: (CPT 52352; principal; 2020-01-06 08:30)
DX: N20.2 Calculus of kidney with calculus of ureter (principal); N13.4 Hydroureter; N13.30 Unspecified hydronephrosis; N13.5 Crossing vessel and stricture of ureter without hydronephrosis; E66.01 Morbid (severe) obesity due to excess calories; I89.0 Lymphedema, not elsewhere classified; R79.89 Other specified abnormal findings of blood chemistry; Z68.41 Body mass index [BMI] 40.0-44.9, adult; Z85.41 Personal history of malignant neoplasm of cervix uteri; Z90.49 Acquired absence of other specified parts of digestive tract; Z92.3 Personal history of irradiation
CPT/HCPCS: 52332; 36415; 74018; 74177; 74420; 78708; 80048; 80053; 81001; 82365; 83690; 85025; 85027; 85610; 85730; 88300; 96361; 96372; 96374; 96375; 96376; 99285; A9270; A9562; C1769; C2617; G0378; J0690; J0696; J1100; J1170; J1940; J2250; J2270; J2405; J2550; J2704; J2765; J3010; J7030; J7120; Q9966; Q9967

== ENCOUNTER 2020-01-16 02:40 | Outpatient (CLI) | payer OTHER, SELFPAY ==
[2020-01-16 18:38] LABS: SARS-CoV-2 RNA PCR Negative
== END 2020-01-16 02:41 | disposition home or self-care (01) ==
LOC: ANHCOVIDDT 02:40
PROVIDERS: PCP Obstetrics & Gynecology Gynecologic Oncology; Visit Provider Urology
DX: Z01.812 Encounter for preprocedural laboratory examination (principal); Z20.828 Contact with and (suspected) exposure to other viral communicable diseases
CPT/HCPCS: 87635; C9803; U0003

== ENCOUNTER 2020-01-17 00:52 | Day surgery (SDC) | payer OTHER, SELFPAY ==
[2020-01-16 09:27] VITALS: BMI 43.2
[2020-01-17] VITALS (9 sets, daily range): BP systolic 121–185; BP diastolic 49–114; PULSE 72–95; RESP 12–18; TEMP 36.3–36.9; O2SAT 95–100; BMI 43.5
--- NOTE | ~2020-01-17 | XR_ITS ---
EXAMINATION: XR retrograde pyelo w/stent BI DATE: 01/17/2020 11:57 INDICATION: Hydronephrosis. Bilateral ureteral stent placement. TECHNIQUE: 238 fluoroscopic images of the abdomen and pelvis were obtained during procedure performed by Dr. Villasenor. Radiologist was not present for the imaging or procedure. The amount of fluoroscopy time used during this procedure was 3.3 minutes. COMPARISON: 01/06/2020 FINDINGS: Subcontracts Manager image demonstrates a couple surgical clips in the pelvis and a few surgical clips projecting al darvin the right side of the lower lumbar spine. Subsequent images demonstrate a catheter advanced first into the left ureter with retrograde contrast administration demonstrating severe left hydroureteron ephrosis. Subsequent cannulation and retrograde contrast administration in the right ureter demonstra gonsalo mild right hydroureteronephrosis. Final images demonstrate placement of bilateral internal ureter al stents with loops formed in the bilateral renal pelvises and in the bladder. IMPRESSION: 1. Severe left and mild right hydroureteronephrosis with placement of bilateral internal ureteral more nts which are in expected positions. See procedure note for further detail. Reviewed, dictated and finalized at location A. IMPRESSION: 1. Severe left and mild right hydroureteronephrosis with placement of bilateral internal ureteral stents which are in expected positions. See procedure note f or further detail.
--- NOTE | 2020-01-17 06:59 | WPDHPUPDATE1 ---
History and Physical Update Update Date/Time: 01/17/20 06:59 History and Physical has been reviewed, including an updated exam of the patient. There are NO changes in the patient's condition. Risks, benefits, and alternatives have been discussed and questions answered. Patient agrees to proceed with procedure.
--- NOTE | 2020-01-17 10:00 | ECG_ITS ---
Measurements Intervals [place] Rate: 91 P: 64 [place]: 157 QRS: -39 QRSD: 114 T: 60 QT: 355 QTc: 438 Interpretive Statements SINUS RHYTHM POSSIBLE LEFT ATRIAL ENLARGEMENT LEFT AXIS DEVIATION INTRAVENTRICULAR CONDUCTION DELAY LEFT VENTRICULAR HYPERTROPHY AND ST-T CHANGE BORDERLINE R WAVE PROGRESSION, ANTERIOR LEADS BASELINE ARTIFACT- V6 BORDERLINE ECG Electronically Signed On 01-17-2020 10:13:30 CDT by Shay Blair D.O.
--- NOTE | 2020-01-17 10:49 | P.PNAN_ITS ---
Anes - Initial Pre Proc Eval Procedure: Operation Date: 01/17/20 12:00 Proposed Procedures p Cystoscopy, Bilateral Ureteroscopy, Possible Bilateral Stent Placement - Karl Harden MD Date/Time: 01/17/20 10:49 Surgeon: Karl Harden MD Pre Op Diagnosis: Right Ureteral Stone Patient Data Age: 54 Gender: F Height: 5 ft 5 in Weight: 117.93 kg Allergies Allergy/AdvReac Type Severity Reaction Status Date / Time Sulfa (Sulfonamide AdvReac Intermediate NAUSEA Verified 01/17/20 10:45 Antibiotics) Home Medications Medication Instructions Recorded Confirmed Type ibuprofen 600 mg PO QID PRN 01/05/20 01/16/20 History levothyroxine 50 mcg PO DAILY 01/05/20 01/16/20 History lisinopril-hydrochlorothiazide 1 tablet PO DAILY 01/05/20 01/16/20 History oxycodone 5 mg PO Q6H PRN #12 cap 01/06/20 01/16/20 Rx ondansetron 8 mg PO Q8H PRN 01/16/20 01/16/20 History Patient hx anesthesia problems: post op nausea/vomiting Family hx anesthesia problems: none PMFSH Past Medical History Medical History Chronic acquired lymphedema History of cervical cancer Treated with radiation therapy and chemotherapy with complications including chronic lymphedema, and ureteral stricture due to radiation Hypertension Hypothyroidism Morbid obesity Surgical History Surgical History History of section due to breech presentation History of cholecystectomy History of tonsillectomy Ureteral stricture, left status post resection with reimplantation of the ureter May 2016 Family History Family History Mother Breast cancer Cerebrovascular accident Diabetes mellitus Heart disease Father Cerebrovascular accident Social History Social History Social History: Primary care physician: Dr. Hooks Code status: Full code Smoking status: Never smoker Alcohol intake: current Substance use: never Additional living arrangements comments: She is andlives with her 19-year-old son. She also has a 29-year-old son. 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 Gender identity (if verbalized by the patient): Female Spiritual care concerns: No Anes - Eval Final PreProcedure Day of Procedure 01/17/20 10:49 Patient weight: morbidly obese Heart: regular rate and rhythm Lungs: clear to auscultation Airway: Mallampati scale class II Neurological: alert and oriented Last oral intake: >/= 8 hours ASA classification: III Emergent: no Anesthetic plan: proceed Anesthesia type and monitoring: general LMA and standard monitoring Informed Consent: The patient's anesthetic plan and its attendant risks and benefits were discussed with the patient/family/POA. Questions were solicited and answers provided to the satisfaction of the patient/family/POA.
[2020-01-17] MEDS: LACTATED RINGERS 1,000 ML 30 ML IV CONT (10:51)
--- NOTE | 2020-01-17 10:51 | SUR.PREOP ---
DR ACUÑA AWARE OF ELEVATED BP. NO INTERVENTIONS AT THIS TIME.
[2020-01-17] MEDS: ceFAZolin 2 GM/D5W 50 ML 2 GM/50 ML BAG IVPB (10:58)
[2020-01-17] MEDS: SCOPOLAMINE 1.5 MG PATCH TRANSDERM (11:03)
[2020-01-17] MEDS: LIDOCAINE HCL 2% GEL UROJET 10 ML PKG MUCOUS MEM (11:11)
--- NOTE | 2020-01-17 11:58 | P.OP_ITS ---
Procedure Note - Detailed Date of procedure: 01/17/20 Pre-op diagnosis: Right Ureteral Stone Post-op diagnosis: other (Right ureteral obstruction due to distal ureteral edema / Left hydronephrosis due to distal ureteral stricture) Procedure performed: 1. Cystoscopy with bilateral retrograde pyelography 2. Bilateral ureteral dilatation 3. Bilateral ureteroscopy 4. Bilateral ureteral stent placement Description of procedure: patient is brought to the operative suite where she was prepped and draped in routine fashion while in a dorsal lithotomy position after the uneventful induction of a general LMA anesthetic. Cystoscopy is u ndertaken with a 19 F rigid scope. There is bullous edema on the right ureteral orifice. I was able to identify the left ureteral orifice near the dome is result of her prior ureteral reimplantation. With the aid of a semi rigid ureteral scope I was able to pass a 0.035 in glidewire into the left renal pelvis. Retrograde pyelography showed a concentric narrowing consistent with stricture in the distal-most left ureter. I dilated that site with a 10 cm/ 18 F ureteral balloon at 16 atmospheres for approximately 5 minutes. I then placed a 7 F variable length stent with the proximal coil in the renal pelvis and distal coil in the bladder. Right ureteroscopy was undertaken after dilating the distal ureter with an 8 F 10 F dilator and then again with a 10 cm balloon. There is marked edema of the distal ureter but no residual stones or other identifiable pathology as determined by rigid ureteroscopy to the iliac vessels. I placed a 4.8 F variable length stent on the right. Scopes was removed patient taken to Surgeon: Karl Harden MD Virtual Assistant For Advertisers: None Estimated blood loss (mL): 0 Drains: Yes (Left 7F ureteral stent / Right 4.8F ureteral stent) Packing: No Pathology: none sent Complications: No immediate complications Condition: stable Disposition: PACU
[2020-01-17 12:19] LABS: Glucose Point of Care 106 (65-105)
--- NOTE | 2020-01-17 12:21 | SUR.PHASEI ---
01/16 1220- SCOPOLAMINE PATCH NOTED TO RIGHT POSTERIOR EAR
--- NOTE | 2020-01-17 13:28 | SUR.PHASEII ---
DR GILLIAM NOTIFIED OF PT'S BP 180's/70's. HR 70's. PT ASYMPTOMATIC. ORDERS RECEIVED.
[2020-01-17] MEDS: hydrALAZINE HCL 20 MG/ML VIAL 10 MG IV PUSH (13:38)
--- NOTE | 2020-01-17 14:02 | SUR.PHASEII ---
1400; PT STATES SHE HAS THAT GOTTA GO FEELING FOR URGENCY. CALLED DR VARGAS. 1403; DR VARGAS ORDERED L[facility] AND WILL SEND A PRESCRIPTION TO HER PHARMACY. PT NOTIFIED.
[2020-01-17] MEDS: HYOSCYAMINE SULFATE 0.125 MG TABLET PO (14:10)
--- NOTE | 2020-01-17 14:18 | SUR.PHASEII ---
PT STATES SHE IS READY TO GO HOME. AWAKE AND ALERT. DENIES PAIN. L[facility] GIVEN FOR URINARY URGENCY. MEETS DISCHARGE CRITERIA.
== END 2020-01-17 14:35 | disposition home or self-care (01) ==
PROVIDERS: PCP Family Medicine Sports Medicine; Visit Provider Urology
PROC: (CPT 52352; principal; 2020-01-17 12:00)
DX: N13.2 Hydronephrosis with renal and ureteral calculous obstruction (principal); I10 Essential (primary) hypertension; E03.9 Hypothyroidism, unspecified; Z85.41 Personal history of malignant neoplasm of cervix uteri; Z92.21 Personal history of antineoplastic chemotherapy; Z92.3 Personal history of irradiation; E66.01 Morbid (severe) obesity due to excess calories; Z68.41 Body mass index [BMI] 40.0-44.9, adult
CPT/HCPCS: 52332; 74420; 93005; A9270; C1726; C1758; C1769; C1887; C2617; J0360; J0690; J1100; J2250; J2405; J2704; J3010; J7120; Q9966

== ENCOUNTER 2020-04-18 07:43 | Outpatient (CLI) | payer OTHER, SELFPAY ==
--- NOTE | ~2020-04-18 | CT_ITS ---
EXAMINATION: CT abdomen pelvis wo con DATE: 04/18/2020 08:15 INDICATION: Hydronephrosis. Constipation, diarrhea. TECHNIQUE: Computed tomography (CT) of the abdomen and pelvis was performed without intravenous contr ast. Automated exposure control and iterative reconstruction technique were employed. Exam dose: 112 7.06 mGy-cm total exam DLP. COMPARISON: 01/05/2020 CT abdomen pelvis examination with IV contrast material 12/07/2018 CT abdomen pelvis FINDINGS: Mild chronic linear scarring at the left lung base, left lower lobe, unchanged since 01/05/20 20. No infiltrate or consolidation or mass lesion is noted in the included lower lung zones. Normal heart size. No pericardial or pleural effusion. Small sliding hiatal hernia. Stable approximately 4.4 cm left hepatic cyst. No interval hepatic space-occupying mass lesion. Status post cholecystectomy. No bile duct or pancreatic duct dilatation. No pancreatic mass lesion or calcification. Normal splenic size. Normal morphology of the adrenal glands. Stable approximately 9.5 mm posterior exophytic hypoattenuating lesion at the very upper aspect of th e right kidney. Increased degree of hydronephrosis, pelviectasis and proximal right hydroureter on the right since 01/05/2020. Interval resolution of previously reported 3 mm right ureterovesical junction stone since 01/04. There is persistent severe left hydronephrosis and hydroureter and scarring/parenchymal thinning of t he left kidney. There is nephrocalcinosis and/or nephrolithiasis at the lower pole of the left kidney. There is chron ic moderate diffuse thickening of the urinary bladder wall. The bladder is chronically centered left of midline. Normal appendix. There is diverticulosis of the left and right colon; no CT evidence of diverticuliti s. No bowel obstruction, bowel wall thickening, pneumatosis or intraperitoneal free air is detected. Small fat-containing umbilical hernia. No suspicious osteolytic or osteoblastic lesions. Bilateral hip osteoarthritis. Degenerative spurring of the lower thoracic spine. Moderate degenerative disc disease at L3-4 and L5- S1. IMPRESSION: Prominent bilateral hydroureteronephrosis, left greater than right, increased in severit y on the right since 01/05/2020 Diffuse chronic moderate thickening of the urinary bladder wall Resolution of right ureterovesical junction calculus since 01/05/2020 Small sliding hiatal hernia Diverticulosis of left and right colon; no CT evidence of diverticulitis Reviewed, dictated and finalized at [facility]. Reviewed, dictated and finalized at location B. INCT COMMANDING OFFICER IMPRESSION: Prominent bilateral hydroureteronephrosis, left greater than right , increased in severity on the right since 01/05/2020 Diffuse chronic moderate thickening of the urinary bladder wall Resolution of right ureterovesical junction calculus since 01/05/2020 Small sliding hiatal hernia Diverticulosis of left and right colon; no CT evidence of diverticulitis
== END 2020-04-18 07:44 | disposition home or self-care (01) ==
PROVIDERS: PCP Family Medicine Sports Medicine; Visit Provider Urology
DX: N13.30 Unspecified hydronephrosis (principal); K57.30 Diverticulosis of large intestine without perforation or abscess without bleeding; N28.1 Cyst of kidney, acquired; K42.0 Umbilical hernia with obstruction, without gangrene; M16.0 Bilateral primary osteoarthritis of hip; M47.817 Spondylosis without myelopathy or radiculopathy, lumbosacral region
CPT/HCPCS: 74176

== ENCOUNTER 2020-04-19 06:30 | Outpatient (CLI) | payer OTHER, SELFPAY ==
[2020-04-19 19:09] LABS: SARS-CoV-2 RNA PCR Negative
== END 2020-04-19 06:31 | disposition home or self-care (01) ==
LOC: ANHCOVIDDT 06:30
PROVIDERS: PCP Obstetrics & Gynecology Gynecologic Oncology; Visit Provider Urology
DX: Z01.818 Encounter for other preprocedural examination (principal); Z20.828 Contact with and (suspected) exposure to other viral communicable diseases
CPT/HCPCS: 87635; C9803; U0003

== ENCOUNTER 2020-04-22 00:55 | Day surgery (SDC) | payer OTHER, SELFPAY ==
[2020-04-18 13:18] VITALS: BMI 43.2
[2020-04-22] VITALS (7 sets, daily range): BP systolic 139–181; BP diastolic 64–105; PULSE 85–97; RESP 12–20; TEMP 35.9–37.7; O2SAT 97–100
--- NOTE | ~2020-04-22 | XR_ITS ---
EXAMINATION: XR retrograde pyelo w/stent BI DATE: 04/22/2020 16:10 INDICATION: Bilateral hydronephrosis for stent placement TECHNIQUE: Total of 51 fluoroscopic images of the abdomen and pelvis were obtained during procedure p erformed by Dr. Harden. Radiologist was not present for the imaging or procedure. The amount of fluor oscopy time used during this procedure was 2.5 minutes. COMPARISON: CT dated 04/18/2020 FINDINGS: Retrograde contrast injections into both the left and right ureters demonstrates moderate right and s evere left hydroureteronephrosis. Final images demonstrate placement of bilateral internal ureteral s tents with loops formed in the left and right renal pelvis series and in the bladder. Postoperative c hanges with surgical clips in the central pelvis along the left and right common iliac chains. IMPRESSION: 1. Moderate right and severe left hydroureteronephrosis. 2. Placement of bilateral internal ureteral stents which are in expected positions. See procedure not e for further detail. Reviewed, dictated and finalized at location H. CINE AIDE IMPRESSION: 1. Moderate right and severe left hydroureteronephrosis. 2. Placement of bilateral internal ureteral stents which are in expected positi ons. See procedure note for further detail.
--- NOTE | 2020-04-22 08:31 | P.PNAN_ITS ---
Anes - Initial Pre Proc Eval Procedure: Operation Date: 04/22/20 15:00 Proposed Procedures p Cystoscopy, Right Stent Placement, Possible Left Stent Placement - Karl Harden MD Date/Time: 04/22/20 08:31 Surgeon: Karl Harden MD Pre Op Diagnosis: Hydronephrosis Patient Data Age: 54 Gender: F Height: 1.65 m Weight: 117.93 kg Allergies Allergy/AdvReac Type Severity Reaction Status Date / Time Sulfa (Sulfonamide AdvReac Intermediate NAUSEA Verified 04/18/20 12:57 Antibiotics) Home Medications Medication Instructions Recorded Confirmed Type ibuprofen 600 mg PO QID PRN 01/05/20 04/18/20 History levothyroxine 50 mcg PO DAILY 01/05/20 04/18/20 History lisinopril-hydrochlorothiazide 1 tablet PO DAILY 01/05/20 04/18/20 History oxycodone 5 mg PO Q6H PRN #12 cap 01/06/20 04/18/20 Rx hydrocodone-acetaminophen 1 - 2 tablet PO Q6H PRN #20 tablet 01/17/20 04/18/20 Rx Patient hx anesthesia problems: none Family hx anesthesia problems: none PMFSH Past Medical History Medical History Chronic acquired lymphedema History of cervical cancer Treated with radiation therapy and chemotherapy with complications including chronic lymphedema, and ureteral stricture due to radiation Hypertension Hypothyroidism Morbid obesity Surgical History Surgical History History of section due to breech presentation History of cholecystectomy History of tonsillectomy Ureteral stricture, left status post resection with reimplantation of the ureter May 2016 Family History Family History Mother Breast cancer Cerebrovascular accident Diabetes mellitus Heart disease Father Cerebrovascular accident Social History Social History Social History: Primary care physician: Dr. Hooks Code status: Full code Smoking status: Never smoker Alcohol intake: current Substance use: never Living arrangements: with family Additional living arrangements comments: She is andlives with her 19-year-old son. She also has a 29-year-old son. 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 Gender identity (if verbalized by the patient): Female Spiritual care concerns: No Anes - Eval Final PreProcedure Day of Procedure 04/22/20 08:31 Patient weight: morbidly obese Heart: regular rate and rhythm Lungs: clear to auscultation and normal air movement Airway: Mallampati scale class II Neurological: alert and oriented Last oral intake: >/= 8 hours ASA classification: III Emergent: no Anesthetic plan: proceed Anesthesia type and monitoring: general LMA and standard monitoring Informed Consent: The patient's anesthetic plan and its attendant risks and benefits were discussed with the patient/family/POA. Questions were solicited and answers provided to the satisfaction of the patient/family/POA.
[2020-04-22] MEDS: LACTATED RINGERS 1,000 ML 30 ML IV CONT ×2 (13:37→16:20)
[2020-04-22] MEDS: SCOPOLAMINE 1.5 MG PATCH TRANSDERM (13:39)
--- NOTE | 2020-04-22 15:01 | WPDHPUPDATE1 ---
History and Physical Update Update Date/Time: 04/22/20 15:01 History and Physical has been reviewed, including an updated exam of the patient. There are NO changes in the patient's condition. Risks, benefits, and alternatives have been discussed and questions answered. Patient agrees to proceed with procedure.
[2020-04-22] MEDS: ceFAZolin 2 GM/D5W 50 ML 2 GM/50 ML BAG IVPB (15:12)
--- NOTE | 2020-04-22 16:16 | PM.PROC ---
Procedure Note - Detailed Date of procedure: 04/22/20 Pre-op diagnosis: Hydronephrosis Post-op diagnosis: same Procedure performed: 1. Cystoscopy with bilateral retrograde pyelography 2. Bilateral ureteral stent placement 3. Left ureteroscopy 4. Bladder biopsy 5. Cystogram Description of procedure: patient is brought to the op suite where she was prepped and draped in routine sterile fashion while in a dorsal lithotomy position after the uneventful induction of a general LMA anesthetic. Cystoscopy is undertaken with a 19 F rigid cystoscope. She has a very unusual appearance to the trigone of her bladder with marked bullous edematous changes surrounding the right ureteral orifice and extending slightly into the left yissel trigone. Her left ureteral orifices reimplanted into the left lateral dome. I did a intraoperative cystogram in found no evidence of reflux into the left ureter which has been reimplanted in a Boari flap fashion. With relative ease I was able to negotiate the right ureteral orifice and performed retrograde pyelogram. There appears to be concentric narrowing of the essentially the entire distal right ureter from the iliac vessels to the ureterovesical junction. This is likely consistent with retroperitoneal fibrosis. Placed a 6 F variable length double-J stent with the proximal coil in renal pelvis and distal coil in her bladder. Her left ureteral orifice was more difficult. Using a rigid ureteral scope in an exhaustive attempts I was finally able to negotiate the strictured distal left ureter. Retrograde pyelography showed a similar narrowing process. I, likewise, placed a 6 F double-J ureteral stent on the left side. I then obtained some biopsies of the abnormal appearing edematous tissue around the right ureteral orifice cauterized the base with electrocautery. Scopes wires removed she was taken recovery room good condition Implants: Bilat. 6F ureteral stents Anesthesia: GLMA Surgeon: Karl Harden MD Estimated blood loss (mL): 0 Drains: Yes (Bilat. 6F ureteral stents) Packing: No Pathology: yes (Bladder biopsy) Complications: No immediate complications Condition: stable Disposition: PACU
== END 2020-04-22 17:44 | disposition home or self-care (01) ==
PROVIDERS: PCP Family Medicine Sports Medicine; Visit Provider Urology
PROC: (CPT 52352; principal; 2020-04-22 15:00)
DX: N13.30 Unspecified hydronephrosis (principal); I10 Essential (primary) hypertension; E03.9 Hypothyroidism, unspecified; I89.0 Lymphedema, not elsewhere classified; E66.01 Morbid (severe) obesity due to excess calories; Z68.41 Body mass index [BMI] 40.0-44.9, adult; Z85.41 Personal history of malignant neoplasm of cervix uteri; Z92.21 Personal history of antineoplastic chemotherapy; Z92.3 Personal history of irradiation
CPT/HCPCS: 52332; 74420; 88305; A9270; C1769; C1887; C2617; J0690; J1100; J2250; J2405; J2704; J3010; J7120; Q9966

== ENCOUNTER 2020-09-17 21:22 | Inpatient (IN) | payer OTHER, SELFPAY ==
[2020-09-17] VITALS (14 sets, daily range): BP systolic 171–187; BP diastolic 64–104; PULSE 88–110; RESP 13–22; TEMP 36.1; O2SAT 95–100
--- NOTE | ~2020-09-17 | XR_ITS ---
EXAMINATION: XR retrograde pyelo w/stent BI DATE: 09/19/2020 08:31 INDICATION: Ureteral stenting for bilateral hydronephrosis. TECHNIQUE: 65 fluoroscopic images of the abdomen and pelvis were obtained during procedure performed by Dr. Harden. Radiologist was not present for the imaging or procedure. The amount of fluoroscopy ti me used during this procedure was 0.7 minutes. COMPARISON: CT dated 09/17/2020 FINDINGS: Retrograde contrast injection into the bilateral ureters demonstrates moderate left and mild right hy droureter and at least moderate bilateral hydronephrosis. No evident urothelial irregularities or obs tructing stones. Final images demonstrate placement of bilateral ureteral stents with loops formed in the renal pelvises and bladder. There are couple surgical clips projecting over the central pelvis. IMPRESSION: 1. Bilateral hydroureteronephrosis with placement of bilateral internal ureteral stents which are in expected position. See procedure note for further detail. Reviewed, dictated and finalized at location A. IMPRESSION: 1. Bilateral hydroureteronephrosis with placement of bilateral internal uretera l stents which are in expected position. See procedure note for further detail.
--- NOTE | ~2020-09-17 | CT_ITS ---
EXAMINATION: CT abdomen pelvis wo con DATE: 09/17/2020 22:58 INDICATION: Left flank pain TECHNIQUE: Computed tomography (CT) of the abdomen and pelvis was performed without intravenous contr ast. The dose-length product was 1095.47 mGy-cm. Automated exposure control and iterative reconstruct ion technique were employed. COMPARISON: 04/18/2020. FINDINGS: Lung bases are unremarkable. Heart size normal. No significant pleural or pericardial effus ion. Small hiatal hernia. There is a 4.8 cm cyst of the left hepatic lobe. There are cholecystectomy clips. The spleen, pancreas, adrenal glands are unremarkable. There is severe left and moderate right hydrou reteronephrosis. The bladder is eccentric in the left pelvis with thickened abnormal appearance to th e distal aspect of the left ureter. There is a possible eccentric 2 mm stone in the distal aspect of the left ureter, image 134. There is a large amount of left perinephric edema. There are multiple lef t renal stones dependent within the renal pelvis. There is mild bladder wall thickening. Nonobstructive bowel gas pattern. No significant free air or free fluid. No lymphadenopathy. IMPRESSION: 1. Bilateral hydronephrosis, severe on the left and moderate on the right with possible 2 mm distal l eft ureteral stone, likely not the source of obstruction. There is thickening of the distal aspect of the left ureter with a large amount of left perinephric edema. Findings suspicious for ascending uri nary tract infection. 2: Left nephrolithiasis. Reviewed, dictated and finalized at location A. IMPRESSION: 1. Bilateral hydronephrosis, severe on the left and moderate on the right with possible 2 mm distal left ureteral stone, likely not the source of obstruction. There is thickening of the distal aspect of the left ureter with a large amoun t of left perinephric edema. Findings suspicious for ascending urinary tract in fection. 2: Left nephrolithiasis.
--- NOTE | 2020-09-17 21:43 | PC.NURSE ---
pt reports she has a kidney disorder that she sees a sewing line baler for at this facility. reports ureters damaged r/t past radiation for cancer, and she is supposed to f/u c her doctor for possible surgery and stent placement in September. reports she is c/o weakened urine stream and pain to left lower abd wrapping around to left flank. Edema to lower body bilaterally and symmetric. pt reports dx of lymphedema and arrived in ed wearing compression stockings. son present at bedside.
--- NOTE | 2020-09-17 21:55 | ED.ABDPAIN ---
HPI - Abdominal Pain General Chief Complaint: Abdominal Pain Stated Complaint: left flank pain - kidney Time Seen by Provider: 09/17/20 21:36 Source: patient Mode of arrival: ambulatory Limitations: no limitations History of Present Illness HPI narrative: This is a 55 year old female with history of kidney stones and ureteral strictures due to radiation who presents for evaluation of left flank pain. She states her pain started around noon. It has been constant and gradually worsening. She has associated nausea and vomiting. She denies fever. She denies increased urinary frequency, urgency or hematuria. She has taken Tylenol twice prior to arrival. Her pain is 8/10. Related Data Home Medications Medication Instructions Recorded Confirmed ibuprofen 600 mg PO QID PRN 01/05/20 09/18/20 levothyroxine 50 mcg PO DAILY 01/05/20 09/18/20 lisinopril-hydrochlorothiazide 1 tablet PO DAILY 01/05/20 09/18/20 Allergies Allergy/AdvReac Type Severity Reaction Status Date / Time Sulfa (Sulfonamide AdvReac Intermediate NAUSEA Verified 09/18/20 02:15 Antibiotics) Review of Systems Review of Systems: All systems reviewed & are unremarkable except as noted in HPI and below Constitutional: Constitutional: Reports chills and Denies fever(s) Cardiovascular: Cardiovascular: Denies chest pain Respiratory: Respiratory: Denies dyspnea Gastrointestinal: Gastrointestinal: Reports abdominal pain, Denies diarrhea, Reports nausea and Reports vomiting Genitourinary: Genitourinary: Denies hematuria, Denies nocturia, Denies dysuria and Reports flank pain Musculoskeletal: Musculoskeletal: Reports back pain PMFSH Past Medical History Medical History Chronic acquired lymphedema History of cervical cancer Treated with radiation therapy and chemotherapy with complications including chronic lymphedema, and ureteral stricture due to radiation Hypertension Hypothyroidism Morbid obesity Surgical History Surgical History History of section due to breech presentation History of cholecystectomy History of tonsillectomy Ureteral stricture, left status post resection with reimplantation of the ureter May 2016 Family History Family History Mother Breast cancer Cerebrovascular accident Diabetes mellitus Heart disease Father Cerebrovascular accident Social History Social History Social History: Primary care physician: Dr. Hooks Code status: Full code Smoking status: Never smoker Alcohol intake: current Drinks per week: 1 Substance use: never Substance use type: does not use Additional living arrangements comments: She is andlives with her 19-year-old son. She also has a 29-year-old son. 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 Gender identity (if verbalized by the patient): Female Sexual Orientation (if Verbalized by the Patient): Straight or Heterosexual Spiritual care concerns: No Exam Const: General: alert Nutritional Appearance: obese Orientation/consciousness: patient oriented x3 Eyes: EOM: EOMs intact bilaterally Chest: Chest palpation & inspection: normal inspection of the chest Resp: Effort & Inspection: normal respiratory effort and no retractions Auscultation: clear to auscultation bilaterally Cardio: Rate: regular rate Rhythm: regular rhythm Heart sounds: no murmurs GI: GI Palp: Yes Soft to palpation, Yes Tenderness to palpation present (GI) (LLQ) and No Guarding due to palpation present (GI) Auscultation: normal bowel sounds : General: Yes CVA tenderness on the left Skin: General skin exam: normal color Rashes: no rashes Ne
[2020-09-17 21:58] LABS: Basophils Percent Auto 0.3 % (0.2-1.2); Eosinophils Absolute Auto 0.1 K/mm3 (0-0.3); Eosinophils Percent Auto 0.9 % (0-4.4); Hematocrit 41.2 % (37.0-47.0); Hemoglobin 13.1 g/dL (12.0-15.0); Immature Granulocyte Absolute 0.07 K/mm3 (0.00-0.031); Immature Granulocyte Percent A 0.5 % (0-0.5); Lymphocytes Absolute Auto 1.57 K/mm3 (0.9-3.2); Lymphocytes Percent Auto 11.1 % (18.3-44.2); Mean Corpuscular HGB Conc 31.8 g/dl (32-36); Mean Corpuscular Hemoglobin 28.2 pg (26-34); Mean Corpuscular Volume 88.8 fl (80-100); Mean Platelet Volume 9.7 fl (7.4-10.4); Monocytes Absolute Auto 1.2 K/mm3 (0.1-0.6); Monocytes Percent Auto 8.7 % (2.6-8.5); Neutrophils Absolute Auto 11.1 K/mm3 (1.3-6.7); Neutrophils Percent Auto 78.5 % (45.5-73.1); Platelet Count Result 319 k/mm3 (150-375); Red Blood Count 4.64 M/mm3 (4.2-5.4); Red Cell Distribution Width 13.9 % (11.5-14.5); White Blood Count 14.1 K/mm3 (4.5-10.0)
[2020-09-17 22:08] LABS: Alanine Aminotransferase 14 U/L (4-35); Albumin Level 3.9 g/dL (3.5-5.1); Alkaline Phosphatase 101 U/L (38-126); Anion Gap 8 mmol/L (8-16); Aspartate Amino Transferase 24 U/L (14-36); Bilirubin,Total 0.3 mg/dL (0.2-1.3); Blood Urea Nitrogen 28 mg/dL (7-17); Calcium 8.7 mg/dL (8.4-10.2); Carbon Dioxide 28 mmol/L (22-30); Chloride 105 mmol/L (98-107); Estimated CRCL calculation 25 ml/min; Estimated Glomerular Filt Rate 17; Glucose 123 mg/dL (65-105); Lipase 64 U/L (23-300); Potassium 3.9 mmol/L (3.4-5.0); Sodium 141 mmol/L (137-145)
[2020-09-17] MEDS: HYDROmorphone HCL INJ (*CRX) 1 MG/ML SYR 0.5 MG IV PUSH (22:16)
[2020-09-17] MEDS: ONDANSETRON INJ 4 MG/2 ML VIAL IV PUSH (22:16)
[2020-09-17 22:22] LABS: Lactic Acid Reflex 1.3 mmol/L (0.7-2.1)
[2020-09-17] MEDS: LACTATED RINGERS 1,000 ML 999 ML IV CONT (22:40)
[2020-09-17 23:46] LABS: Add Urine Microscopic? YES; Appearance Urine Cloudy (Clear); Bacteria Urine Trace /hpf; Bilirubin Urine Negative (Negative); Blood Urine Negative (Negative); Color Urine Straw (Yellow); Glucose Urine UA Negative (Negative); Ketones Urine Negative (Negative); Leukocyte Esterase Ur 3+ LEU/UL (Negative); Mucus Urine Rare /lpf; Nitrate Urine Negative (Negative); Protein Urine 1+ mg/dL (Negative); Specific Grav Ur 1.009 (1.001-1.035); Squamous Epithelial Cell Urine Occasional /hpf (Few); Urobilinogen Urine Negative mg/dL (<2.0); WBC Urine 51-75 /hpf
[2020-09-18] VITALS (13 sets, daily range): BP systolic 133–174; BP diastolic 63–81; PULSE 92–117; RESP 14–21; TEMP 36.6–38; O2SAT 95–100; BMI 43.4
[2020-09-18] MEDS: HYDROmorphone HCL INJ (*CRX) 1 MG/ML SYR IV PUSH (00:07)
[2020-09-18] MEDS: SODIUM CHLORIDE 0.9% IV 1,000 ML 125 ML IV CONT ×3 (02:07→18:56)
[2020-09-18] MEDS: ONDANSETRON INJ 4 MG/2 ML VIAL IV PUSH ×5 (02:11→22:05)
--- NOTE | 2020-09-18 02:16 | ADMGEN ---
This patient, Raquel Nova, was admitted to Medical Room 245-. Patient/family oriented to hospital policies and general routines including ID bracelet, bed and alarms, visiting hours, pain management, procedures, bathroom and other care routines, personal items, smoking policy, room service/diet, and visiting hours. Information on how to activate the Rapid Response Team has been discussed. Patient/Family are encouraged to report perceived risks to care and to ask questions if they do not understand what they are told or what they should do.
--- NOTE | 2020-09-18 06:47 | WPDURCON ---
Assessment and Plan Assessment and plan (1) Bilateral ureteral obstruction: Code(s): N13.5 - Crossing vessel and stricture of ureter without hydronephrosis Status: Acute (2) Pyelonephritis: Code(s): N12 - Tubulo-interstitial nephritis, not specified as acute or chronic Status: Acute Assessment and Plan: Chronic bilateral hydronephrosis that, until recently, has been nonobstructive. Admission for left flank pain which may be due to urinary tract infection /pyelonephritis and not obstructive uropathy. Will defer decision about need for ureteral stent placement for 24 hours. If she improved with antibiotics and supportive care I will not replace her stents at this time. Urology Consult Note HPI Date Seen: 09/18/20 Requesting Physician: Bruce Vergara MD Primary Care Provider: Bruce Orozco, Consult Narrative Narrative: Raquel Nova is a 55 year old female who is very well known to me, seen in our office on a regular basis. 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 For the last several months she has done well without indwelling ureteral stents. She has, what appears to be, nonobstructive hydronephrosis. Her serum creatinine has been stable at about 1.5. She was admitted last night to the ER after presenting with left flank pain. She has had no fevers chills or gross hematuria. This morning she is feeling better with marked improvement in her left flank pain. Review of Systems Cardiovascular: Cardiovascular: Denies chest pain, Denies lightheadedness, Denies palpitations and Denies dyspnea Respiratory: Respiratory: Denies dyspnea Gastrointestinal: Gastrointestinal: Denies diarrhea, Denies nausea and Denies vomiting Genitourinary: Genitourinary: Denies hematuria and Denies dysuria Endocrine: Endocrine: Denies palpitations PMFSH Past Medical History Medical History Chronic acquired lymphedema History of cervical cancer Treated with radiation therapy and chemotherapy with complications including chronic lymphedema, and ureteral stricture due to radiation Hypertension Hypothyroidism Morbid obesity Surgical History Surgical History History of section due to breech presentation History of cholecystectomy History of tonsillectomy Ureteral stricture, left status post resection with reimplantation of the ureter May 2016 Family History Family History Mother Breast cancer Cerebrovascular accident Diabetes mellitus Heart disease Father Cerebrovascular accident Social History Social History Social History: Primary care physician: Dr. Hooks Code status: Full code Smoking status: Never smoker Alcohol intake: current Drinks per week: 1 Substance use: never Substance use type: does not use Additional living arrangements comments: She is andlives with her 19-year-old son. She also has a 29-year-old son. 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 Gender identity (if verbalized by the patient): Female Sexual Orientation (if Verbalized by the Patient): Straight or Heterosexual Spiritual care concerns: No Meds Home Medications and Allergies Home Medications Medication Instructions Recorded Confirmed Type ibuprofen 600 mg PO QID PRN 01/05/20 09/18/20 History levothyroxine 50 mcg PO DAILY 01/05/20 09/18/20 History lisinopril-hydrochlorothiazide 1 tablet PO DAILY 01/05/20 09/18/20 History Allergies Allergy/AdvReac Type Severity Reaction Status Date / Time Sulfa (Sulfonamide AdvReac Intermediate NAUSEA
--- NOTE | 2020-09-18 12:05 | PM.IMHP ---
H&P: HPI History of Present Illness Date/Time: 09/18/20 12:05 Ms. Raquel Nova is a 55 year old lady with a past medical history including bilateral ureteral strictures from prior pelvic radiation and retroperitoneal fibrosis, cervical cancer, HTN, hypothyroidism, morbid obesity and lymphedema has been admitted after presenting to the ED with complaints of worsening left flank pain radiating to her abdomen. She rates the pain 8 05/31/09. Her symptoms began around 1200 yesterday afternoon and gradually worsened. She reports associated nausea and vomiting. She took two doses of Tylenol with no relief. She denies any fever, chills, or diarrhea. She is followed by Darwin Tanner (urology) and has had indwelling stents in the past. ED evaluation included and revealed: WBC 14.1, UA suggestive of infection; BUN/Cr 28/2.9. Lactic acid wnl; lipase wnl. CT of A/P showed bilateral hydronephrosis and suspicion for ascending UTI. Chief Complaint: left flank pain Review of Systems Review of Systems: All systems reviewed & are unremarkable except as noted in HPI and below PMFSH Past Medical History Medical History (Updated 09/18/20 @ 14:43 by Mckenzie Rivera APN-C) Chronic acquired lymphedema History of cervical cancer Treated with radiation therapy and chemotherapy with complications including chronic lymphedema, and ureteral stricture due to radiation Hypertension Hypothyroidism Morbid obesity Surgical History Surgical History History of section due to breech presentation History of cholecystectomy History of tonsillectomy Ureteral stricture, left status post resection with reimplantation of the ureter May 2016 Family History Family History Mother Breast cancer Cerebrovascular accident Diabetes mellitus Heart disease Father Cerebrovascular accident Social History Social History Social History: Primary care physician: Dr. Hooks Code status: Full code Smoking status: Never smoker Alcohol intake: current Drinks per week: 1 Substance use: never Substance use type: does not use Additional living arrangements comments: She is andlives with her 19-year-old son. She also has a 29-year-old son. 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 Gender identity (if verbalized by the patient): Female Sexual Orientation (if Verbalized by the Patient): Straight or Heterosexual Spiritual care concerns: No Meds Home Medications and Allergies Home Medications Medication Instructions Recorded Confirmed Type ibuprofen 600 mg PO QID PRN 01/05/20 09/18/20 History levothyroxine 50 mcg PO DAILY 01/05/20 09/18/20 History lisinopril-hydrochlorothiazide 1 tablet PO DAILY 01/05/20 09/18/20 History Allergies Allergy/AdvReac Type Severity Reaction Status Date / Time Sulfa (Sulfonamide AdvReac Intermediate NAUSEA Verified 09/18/20 02:15 Antibiotics) Vital Signs Vital Signs - 24 hr 09/17/20 21:26 09/17/20 21:45 09/17/20 21:46 Temperature 36.1 C L Pulse Rate 110 H 92 98 Respiratory Rate 18 13 20 Blood Pressure 182/104 H 175/92 H Pulse Oximetry 97 100 100 09/17/20 22:00 09/17/20 22:17 09/17/20 22:18 Temperature Pulse Rate 97 90 99 Respiratory Rate 20 18 19 Blood Pressure 172/64 H Pulse Oximetry 96 99 100 09/17/20 22:32 09/17/20 22:45 09/17/20 22:46 Temperature Pulse Rate 91 90 94 Respiratory Rate 19 21 H 22 H Blood Pressure 174/70 H Pulse Oximetry 97 95 96 09/17/20 23:02 09/17/20 23:04 09/17/20 23:05 Temperature Pulse Rate 101 H 88 91 Respiratory Rate 20 22 H 22 H Blood Pressure 187/81 H Pulse Oximetry 95 99 100 09/17/20 23:17 09/17/20 23:18 09/18/20 00:06 Temperature
[2020-09-18 12:41] LABS: Hematocrit 38.8 % (37.0-47.0); Hemoglobin 12.3 g/dL (12.0-15.0); Mean Corpuscular HGB Conc 31.7 g/dl (32-36); Mean Corpuscular Hemoglobin 27.8 pg (26-34); Mean Corpuscular Volume 87.8 fl (80-100); Mean Platelet Volume 9.8 fl (7.4-10.4); Platelet Count Result 274 k/mm3 (150-375); Red Blood Count 4.42 M/mm3 (4.2-5.4); White Blood Count 20.9 K/mm3 (4.5-10.0)
[2020-09-18 12:57] LABS: Anion Gap 7 mmol/L (8-16); Blood Urea Nitrogen 34 mg/dL (7-17); Calcium 7.9 mg/dL (8.4-10.2); Carbon Dioxide 27 mmol/L (22-30); Chloride 108 mmol/L (98-107); Estimated CRCL calculation 20 ml/min; Estimated Glomerular Filt Rate 13; Glucose 137 mg/dL (65-105); Potassium 4.1 mmol/L (3.4-5.0); Sodium 142 mmol/L (137-145)
[2020-09-18 15:25] LABS: Basophils Percent Auto 0.1 % (0.2-1.2); Hematocrit 35.6 % (37.0-47.0); Hemoglobin 11.5 g/dL (12.0-15.0); Immature Granulocyte Absolute 0.16 K/mm3 (0.00-0.031); Immature Granulocyte Percent A 0.8 % (0-0.5); Lymphocytes Absolute Auto 0.42 K/mm3 (0.9-3.2); Mean Corpuscular HGB Conc 32.3 g/dl (32-36); Mean Corpuscular Hemoglobin 28.1 pg (26-34); Mean Platelet Volume 9.6 fl (7.4-10.4); Monocytes Absolute Auto 1.4 K/mm3 (0.1-0.6); Monocytes Percent Auto 6.8 % (2.6-8.5); Neutrophils Absolute Auto 19.1 K/mm3 (1.3-6.7); Neutrophils Percent Auto 90.3 % (45.5-73.1); Platelet Count Result 274 k/mm3 (150-375); Red Blood Count 4.09 M/mm3 (4.2-5.4); Red Cell Distribution Width 14.1 % (11.5-14.5); White Blood Count 21.1 K/mm3 (4.5-10.0)
[2020-09-18 15:35] LABS: Anion Gap 6 mmol/L (8-16); Blood Urea Nitrogen 34 mg/dL (7-17); Calcium 7.9 mg/dL (8.4-10.2); Carbon Dioxide 25 mmol/L (22-30); Chloride 110 mmol/L (98-107); Estimated CRCL calculation 18 ml/min; Estimated Glomerular Filt Rate 11; Glucose 136 mg/dL (65-105); Sodium 141 mmol/L (137-145)
[2020-09-19] VITALS (13 sets, daily range): BP systolic 118–176; BP diastolic 61–77; PULSE 78–99; RESP 16–20; TEMP 36.1–37.1; O2SAT 95–100
[2020-09-19] MEDS: SODIUM CHLORIDE 0.9% IV 1,000 ML 125 ML IV CONT (03:28)
[2020-09-19 05:05] LABS: Basophils Percent Auto 0.2 % (0.2-1.2); Eosinophils Percent Auto 0.1 % (0-4.4); Hematocrit 33.2 % (37.0-47.0); Hemoglobin 10.4 g/dL (12.0-15.0); Immature Granulocyte Percent A 0.7 % (0-0.5); Lymphocytes Absolute Auto 0.68 K/mm3 (0.9-3.2); Lymphocytes Percent Auto 4.5 % (18.3-44.2); Mean Corpuscular HGB Conc 31.3 g/dl (32-36); Mean Corpuscular Hemoglobin 28.6 pg (26-34); Mean Corpuscular Volume 91.2 fl (80-100); Mean Platelet Volume 9.9 fl (7.4-10.4); Monocytes Absolute Auto 1.2 K/mm3 (0.1-0.6); Monocytes Percent Auto 7.6 % (2.6-8.5); Neutrophils Absolute Auto 13.2 K/mm3 (1.3-6.7); Neutrophils Percent Auto 86.9 % (45.5-73.1); Platelet Count Result 221 k/mm3 (150-375); Red Blood Count 3.64 M/mm3 (4.2-5.4); Red Cell Distribution Width 14.3 % (11.5-14.5); White Blood Count 15.2 K/mm3 (4.5-10.0)
[2020-09-19 05:28] LABS: Potassium 4.3 mmol/L (3.4-5.0)
[2020-09-19 05:31] LABS: Alanine Aminotransferase 52 U/L (4-35); Albumin Level 2.9 g/dL (3.5-5.1); Alkaline Phosphatase 84 U/L (38-126); Anion Gap 6 mmol/L (8-16); Aspartate Amino Transferase 69 U/L (14-36); Bilirubin,Total 0.3 mg/dL (0.2-1.3); Blood Urea Nitrogen 42 mg/dL (7-17); Calcium 7.9 mg/dL (8.4-10.2); Carbon Dioxide 26 mmol/L (22-30); Chloride 111 mmol/L (98-107); Estimated CRCL calculation 15 ml/min; Estimated Glomerular Filt Rate 9; Glucose 115 mg/dL (65-105); Sodium 143 mmol/L (137-145)
--- NOTE | 2020-09-19 06:33 | WPDUROPN2 ---
Progress Note: A&P Assessment and Plan (1) Hydronephrosis: Code(s): N13.30 - Unspecified hydronephrosis Status: Acute Assessment and Plan: Regression in renal function, low-grade temp, persistent leukocytosis will necessitate replacement of bilat. ureteral stents. Subjective Subjective Date/Time Seen: 09/19/20 06:33 Overall, feeling poorly - fatigued and mild left flank pain Review of Systems Cardiovascular: Cardiovascular: Denies chest pain, Denies lightheadedness, Denies palpitations and Denies dyspnea Respiratory: Respiratory: Denies dyspnea Gastrointestinal: Gastrointestinal: Denies diarrhea, Denies nausea and Denies vomiting Genitourinary: Genitourinary: Denies hematuria and Denies dysuria Endocrine: Endocrine: Denies palpitations Exam Const: General: no acute distress Resp: Effort & Inspection: normal respiratory effort GI: Inspection: non-distended GI Palp: No abdominal tenderness and No Guarding due to palpation present (GI) Auscultation: normal bowel sounds Objective Data Vital Signs Vital Signs: Vital Signs - 24 hr 09/18/20 08:00 09/18/20 14:00 09/18/20 14:38 Temperature 100.4 F H 100.4 F H Pulse Rate 117 H Respiratory Rate 18 18 Blood Pressure 140/63 Pulse Oximetry 97 95 09/18/20 15:05 09/18/20 16:14 09/18/20 21:46 Temperature 100 F H Pulse Rate Respiratory Rate Blood Pressure Pulse Oximetry 97 97 09/18/20 22:00 Temperature 98.5 F Pulse Rate 103 H Respiratory Rate 18 Blood Pressure 133/66 Pulse Oximetry 96 Intake/Output Intake/Output: Intake & Output 09/16/20 09/17/20 09/18/20 09/19/20 23:59 23:59 23:59 23:59 Intake Total 3350 1000 Output Total 1150 Balance 2200 1000 Meds/Results Medications: Active Medications Generic Name Dose Route Start Last Admin Trade Name Freq PRN Reason Stop Dose Admin Hydromorphone HCl 1 mg 09/18/20 00:46 Hydromorphone Hcl Inj (*Crx) 1 Mg/Ml Syr IV PUSH Q4H PRN Pain Rated 7-10 Sodium Chloride 1,000 mls @ 125 mls/hr 09/18/20 00:50 09/19/20 03:28 Normal Saline Iv IV CONT 125 mls/hr .Q8H CHANNING Administration Ceftriaxone Sodium/Dextrose 1 gm in 50 mls @ 100 mls/hr 09/18/20 22:00 09/18/20 22:34 Rocephin 1 Gm/D5w 50 Ml IVPB Infused Q24H CHANNING Infusion Ondansetron HCl 4 mg 09/18/20 00:46 09/18/20 22:05 Ondansetron Inj 4 Mg/2 Ml Vial IV PUSH 4 mg Q4H PRN Administration Nausea Radiology Results: ITS Impressions Abdomen/Pelvis CT 09/17/20 22:59 IMPRESSION: 1. Bilateral hydronephrosis, severe on the left and moderate on the right with possible 2 mm distal left ureteral stone, likely not the source of obstruction. There is thickening of the distal aspect of the left ureter with a large amount of left perinephric edema. Findings suspicious for ascending urinary tract infection. 2: Left nephrolithiasis. Labs Labs: Laboratory Results - last 24 hr 09/18/20 09/18/20 09/18/20 12:29 12:29 15:18 WBC 20.9 H 21.1 H RBC 4.42 4.09 L Hgb 12.3 11.5 L Hct 38.8 35.6 L MCV 87.8 87.0 MCH 27.8 28.1 MCHC 31.7 L 32.3 RDW 14.0 14.1 Plt Count 274 274 MPV 9.8 9.6 Immature Gran % (Auto) 0.8 H Neut % (Auto) 90.3 H Lymph % (Auto) 2.0 L [place] % (Auto) 6.8 Eos % (Auto) 0.0 Baso % (Auto) 0.1 L Lymph # (Auto) 0.42 L [place] # (Auto) 1.4 H Eos # (Auto) 0.0 Baso # (Auto) 0.0 Abs Immat Gran (auto) 0.16 H Absolute Neuts (auto) 19.1 H Absolute Nucleated RBC 0.0 Nucleated RBC % 0.0 Sodium 142 Potassium 4.1 Chloride 108 H Carbon Dioxide 27 Anion Gap 7 L BUN 34 H Creatinine 3.70 H Estim Creat Clear Calc 20 Estimated GFR 13 L Glucose 137 H Calcium 7.9 L Total Bilirubin AST ALT Alkaline Phosphatase Total Protein Albumin 09/18/20 09/19/20 09/19/20 15:18 04:53 04:53 WBC 15.2 H RBC 3.64 L Hgb 10.4 L Hct
--- NOTE | 2020-09-19 06:35 | WPDHPUPDATE1 ---
History and Physical Update Update Date/Time: 09/19/20 06:35 History and Physical has been reviewed, including an updated exam of the patient. There are NO changes in the patient's condition. Risks, benefits, and alternatives have been discussed and questions answered. Patient agrees to proceed with procedure.
[2020-09-19] MEDS: ONDANSETRON INJ 4 MG/2 ML VIAL IV PUSH (07:45)
--- NOTE | 2020-09-19 07:46 | WPDANESEPPF ---
Anes - Initial Pre Proc Eval Procedure: Operation Date: 09/19/20 08:15 Proposed Procedures p Cystoscopy,Bilateral Stent Placement - Karl Harden MD Date/Time: 09/19/20 07:46 Surgeon: Bruce Vergara MD Pre Op Diagnosis: bilateral obstructiv uropathy,left nephrolithiasis Patient Data Age: 55 Gender: F Height: 1.65 m Weight: 118.5 kg Last Vital Signs Temp 36.6 C 09/19/20 07:39 Pulse 94 09/19/20 07:39 Resp 18 09/19/20 06:00 BP 176/71 H 09/19/20 07:39 Pulse Ox 95 09/19/20 07:39 Allergies Allergy/AdvReac Type Severity Reaction Status Date / Time Sulfa (Sulfonamide AdvReac Intermediate NAUSEA Verified 09/19/20 07:36 Antibiotics) Home Medications Medication Instructions Recorded Confirmed Type ibuprofen 600 mg PO QID PRN 01/05/20 09/18/20 History levothyroxine 50 mcg PO DAILY 01/05/20 09/18/20 History lisinopril-hydrochlorothiazide 1 tablet PO DAILY 01/05/20 09/18/20 History Laboratory Tests 09/18/20 09/18/20 09/18/20 12:29 12:29 15:18 WBC 20.9 K/mm3 H K/mm3 21.1 K/mm3 H K/mm3 (4.5-10.0) (4.5-10.0) RBC 4.42 M/mm3 M/mm3 4.09 M/mm3 L M/mm3 (4.2-5.4) (4.2-5.4) Hgb 12.3 g/dL g/dL 11.5 g/dL L g/dL (12.0-15.0) (12.0-15.0) Hct 38.8 % % 35.6 % L % (37.0-47.0) (37.0-47.0) MCV 87.8 fl fl 87.0 fl fl (80-100) (80-100) MCH 27.8 pg pg 28.1 pg pg (26-34) (26-34) MCHC 31.7 g/dl L g/dl 32.3 g/dl g/dl (32-36) (32-36) RDW 14.0 % % 14.1 % % (11.5-14.5) (11.5-14.5) Plt Count 274 k/mm3 k/mm3 274 k/mm3 k/mm3 (150-375) (150-375) MPV 9.8 fl fl 9.6 fl fl (7.4-10.4) (7.4-10.4) Immature Gran % (Auto) 0.8 % H % (0-0.5) Neut % (Auto) 90.3 % H % (45.5-73.1) Lymph % (Auto) 2.0 % L % (18.3-44.2) [place] % (Auto) 6.8 % % (2.6-8.5) Eos % (Auto) 0.0 % % (0-4.4) Baso % (Auto) 0.1 % L % (0.2-1.2) Lymph # (Auto) 0.42 K/mm3 L K/mm3 (0.9-3.2) [place] # (Auto) 1.4 K/mm3 H K/mm3 (0.1-0.6) Eos # (Auto) 0.0 K/mm3 K/mm3 (0-0.3) Baso # (Auto) 0.0 K/mm3 K/mm3 (0.0-0.1) Abs Immat Gran (auto) 0.16 K/mm3 H K/mm3 (0.00-0.031) Absolute Neuts (auto) 19.1 K/mm3 H K/mm3 (1.3-6.7) Absolute Nucleated RBC 0.0 K/mm3 K/mm3 (0.0-0.012) Nucleated RBC % 0.0 % % (0.0-0.2) Sodium 142 mmol/L mmol/L (137-145) Potassium 4.1 mmol/L mmol/L (3.4-5.0) Chloride 108 mmol/L H mmol/L (98-107) Carbon Dioxide 27 mmol/L mmol/L (22-30) Anion Gap 7 mmol/L L mmol/L (8-16) BUN 34 mg/dL H mg/dL (7-17) Creatinine 3.70 mg/dL H mg/dL (0.7-1.0) Estim Creat Clear Calc 20 ml/min ml/min Estimated GFR 13 L (59 - ) Glucose 137 mg/dL H mg/dL (65-105) Calcium 7.9 mg/dL L mg/dL (8.4-10.2) Total Bilirubin AST ALT Alkaline Phosphatase Total Protein Albumin 09/18/20 09/19/20 09/19/20 15:18 04:53 04:53 WBC 15.2 K/mm3 H K/mm3 (4.5-10.0) RBC 3.64 M/mm3 L M/mm3 (4.2-5.4) Hgb 10.4 g/dL L g/dL (12.0-15.0) Hct 33.2 % L % (37.0-47.0) MCV 91.2 fl fl (80-100) MCH 28.6 pg pg (26-34) MCHC 31.3 g/dl L g/dl (32-36) RDW 14.3 % % (11.5-14.5) Plt Count 221 k/mm3 k/mm3 (150-375) MPV 9.9 fl fl (7.4-10.4) Immature Gran % (Auto) 0.7 % H % (0-0.5) Neut % (Auto) 86.9 % H % (45.5-73.1) Lymph % (Auto) 4.5 % L % (18.3-44.2) [place] % (Auto) 7.6 % % (2.6-8.5) Eos % (Auto) 0.1 % % (0-4.4) Baso % (Auto) 0.2 % % (0.2-1.2) Lymph # (Auto) 0.68 K/mm3 L K/mm3 (0.9-3.2) [place] # (Auto) 1.2 K/mm3 H K/mm3 (0.1-0.6) Eos #
[2020-09-19] MEDS: LACTATED RINGERS 1,000 ML 30 ML IV CONT (08:27)
--- NOTE | 2020-09-19 08:31 | P.OP_ITS ---
Procedure Note - Detailed Date of procedure: 09/19/20 Pre-op diagnosis: bilateral obstructiv uropathy,left nephrolithiasis Post-op diagnosis: same Procedure performed: Cystoscopy, bilateral retrograde pyelography and bilateral ureteral stent placement Description of procedure: patient brought to the op suite she is prepped and draped in routine sterile fashion while in dorsal lithotomy position after the uneventful introduction anesthesia. Cystoscopy is undertaken with a 21 F rigid cystoscope. There is patchy hyperemia consistent with bacterial cystitis. Her left ureteral orifice is in the dome of her bladder is result of a prior r eimplantation. Retrograde pyelography shows narrowing in the pelvis consistent with retroperitoneal fibrosis/ radiation ureteral stricture. Retrograde pyelography is also used to confirm appropriate positioning of a 6 F variable length stent with the proximal coil in the renal pelvis and distal coil in the bladder. I had some difficulty finding her right ureteral orifice in its orthotopic position. Eventually we did identify a and performed retrograde pyelography and stent placement in a similar fashion. Scopes and wires removed and she was taken recovery room good condition Anesthesia: GLMA Surgeon: Karl Harden MD Estimated blood loss (mL): 0 Drains: Yes Packing: No Pathology: none sent Complications: No immediate complications Condition: stable Disposition: PACU
[2020-09-19] MEDS: hydroCHLOROthiazide 12.5 MG CAPSULE PO (09:59)
[2020-09-19] MEDS: LEVOTHYROXINE SODIUM 50 MCG TABLET PO (09:59)
[2020-09-19] MEDS: lisinopriL 20 MG TABLET PO (09:59)
--- NOTE | 2020-09-19 13:58 | PM.IMPN ---
Progress Note: A&P Assessment and Plan (1) Bilateral ureteral obstruction: Code(s): N13.5 - Crossing vessel and stricture of ureter without hydronephrosis Status: Acute Assessment and Plan: Continue with IVF Continue with IV antibiotics Urology following, recommendations appreciated S/p cystoscopy with bilateral ureteral stent placement (2) Pyelonephritis: Code(s): N12 - Tubulo-interstitial nephritis, not specified as acute or chronic Status: Acute Assessment and Plan: S/p IV antibiotics, antiemetics, IVF UC pending (3) Hypertension: Code(s): I10 - Essential (primary) hypertension Status: Acute Assessment and Plan: Resume home regimen Monitor (4) Hypothyroidism: Code(s): E03.9 - Hypothyroidism, unspecified Status: Acute Assessment and Plan: Resume home supplement (5) Morbid obesity: Code(s): E66.01 - Morbid (severe) obesity due to excess calories Status: Acute Assessment and Plan: Lifestyle modifications encouraged Subjective Date/time seen: 09/19/20 13:58 Pt is feeling much better s/p cystoscopy and bilateral ureteral stent placement Review of Systems Review of Systems: All systems reviewed & are unremarkable except as noted in HPI and below Exam Const: General: no acute distress, alert and awake Orientation/consciousness: patient oriented x3 HENMT: Head: normocephalic and atraumatic Ears: hearing grossly normal bilaterally and external ears normal Face and sinus: face symmetric Mouth: Yes Normal oral and palatal mucosa present Eyes: Pupils: Equal, round and reactive pupils present EOM: EOMs intact bilaterally Neck: Neck: full ROM, trachea midline and no JVD Thyroid: thyroid normal Chest: Chest palpation & inspection: normal inspection of the chest Resp: Effort & Inspection: normal respiratory effort Auscultation: clear to auscultation bilaterally Cardio: Jugular venous distension: no JVD Rate: regular rate Rhythm: regular rhythm Heart sounds: S1 normal heart sound present and S2 normal heart sound present Peripheral pulses: Peripheral pulses 2+ throughout GI: Inspection: obesity Auscultation: normal bowel sounds : General: Yes CVA tenderness Back/Spine/Pelvis: Back: CVA tenderness Skin: General skin exam: normal color Rashes: no rashes Neuro: General: patient oriented x3 and CN's II-XI intact bilaterally Cranial nerves: Yes Equal, round and reactive pupils present Speech: normal speech Extrem: General: full ROM Right upper extremity: edema Left upper extremity: edema Psych: Appearance: grossly normal Affect: normal affect Judgement: Good judgement present (Psych) Objective Data Vital Signs Vital Signs: Vital Signs - 24 hr 09/18/20 14:00 09/18/20 14:38 09/18/20 15:05 Temperature 38.0 C H 38.0 C H 37.7 C H Pulse Rate 117 H Respiratory Rate 18 Blood Pressure 140/63 Pulse Oximetry 95 09/18/20 16:14 09/18/20 21:46 09/18/20 22:00 Temperature 36.9 C Pulse Rate 103 H Respiratory Rate 18 Blood Pressure 133/66 Pulse Oximetry 97 97 96 09/19/20 06:00 09/19/20 07:39 09/19/20 08:27 Temperature 36.4 C 36.6 C 37.1 C Pulse Rate 96 94 99 Respiratory Rate 18 18 Blood Pressure 127/77 176/71 H 119/69 Pulse Oximetry 96 95 97 09/19/20 08:40 09/19/20 08:55 09/19/20 09:10 Temperature Pulse Rate 90 88 89 Respiratory Rate 19 20 18 Blood Pressure 138/77 134/61 135/62 Pulse Oximetry 100 97 97 09/19/20 09:25 09/19/20 09:40 09/19/20 10:10 Temperature 36.7 C 36.5 C 36.2 C L Pulse Rate 88 81 90 Respiratory Rate 18 18 18 Blood Pressure 146/69 H 147/74 H 149/77 H Pulse Oximetry 97 97 98 09/19/20 11:10 Temperature 37.0 C Pulse Rate 86 Respiratory Rate 18 Blood Pressure 139/68 Pulse Oximetry 98 Intake/Output Intake/Output: Intake & Output 09/16/20 09/17/20 09/18/20 09/19/20 23:59 23:59 23:59 23:59 Intake Total 3350 2200 Output Total
[2020-09-19] MEDS: IBUPROFEN 600 MG TABLET PO ×2 (16:43→20:02)
[2020-09-20 00:41] VITALS: BP 130/69; PULSE 73; RESP 18; TEMP 36; O2SAT 97
[2020-09-20] MEDS: IBUPROFEN 600 MG TABLET PO ×3 (02:59→17:25)
[2020-09-20 06:00] VITALS: BP 149/76; PULSE 71; RESP 20; TEMP 36; O2SAT 98
[2020-09-20] MEDS: LEVOTHYROXINE SODIUM 50 MCG TABLET PO (06:35)
--- NOTE | 2020-09-20 07:36 | WPDANESPN ---
Anes - Prog Note Post-Op Date/Time: 09/20/20 07:36 Cardiovascular status: normal Respiratory status: normal Airway patency: baseline Mental status: baseline Post-Op hydration status: normal Vital Signs: Last Vital Signs Temp 36.0 C L 09/20/20 06:00 Pulse 71 09/20/20 06:00 Resp 20 09/20/20 06:00 BP 149/76 H 09/20/20 06:00 Pulse Ox 98 09/20/20 06:00 Pain Score (VAS): 1 I/O: Intake & Output 09/19/20 09/19/20 09/20/20 15:59 23:59 07:59 Intake Total 1200 1130 900 Output Total 133 986 8527 Balance 300 330 -100 Laboratory Tests 09/19/20 04:53 09/19/20 04:53 Microbiology 09/17/20 23:30 Urine Clean Catch Urine Culture - Preliminary Coag neg Staph, not saprophyti Post-procedural complaints: none Patient Feedback: Patient satisfied with anesthetic care.
[2020-09-20 09:20] LABS: Basophils Percent Auto 0.1 % (0.2-1.2); Eosinophils Percent Auto 0.3 % (0-4.4); Hemoglobin 10.1 g/dL (12.0-15.0); Immature Granulocyte Absolute 0.08 K/mm3 (0.00-0.031); Immature Granulocyte Percent A 0.6 % (0-0.5); Lymphocytes Absolute Auto 0.91 K/mm3 (0.9-3.2); Lymphocytes Percent Auto 6.5 % (18.3-44.2); Mean Corpuscular HGB Conc 31.6 g/dl (32-36); Mean Corpuscular Volume 88.6 fl (80-100); Mean Platelet Volume 10.3 fl (7.4-10.4); Monocytes Absolute Auto 1.1 K/mm3 (0.1-0.6); Monocytes Percent Auto 7.5 % (2.6-8.5); Neutrophils Absolute Auto 11.9 K/mm3 (1.3-6.7); Platelet Count Result 226 k/mm3 (150-375); Red Blood Count 3.61 M/mm3 (4.2-5.4); Red Cell Distribution Width 14.2 % (11.5-14.5)
[2020-09-20 09:21] LABS: Anion Gap 7 mmol/L (8-16); Blood Urea Nitrogen 42 mg/dL (7-17); Calcium 8.5 mg/dL (8.4-10.2); Carbon Dioxide 27 mmol/L (22-30); Chloride 106 mmol/L (98-107); Estimated CRCL calculation 23 ml/min; Estimated Glomerular Filt Rate 15; Glucose 119 mg/dL (65-105); Potassium 4.3 mmol/L (3.4-5.0); Sodium 140 mmol/L (137-145)
[2020-09-20] MEDS: lisinopriL 20 MG TABLET PO (09:34)
[2020-09-20] MEDS: hydroCHLOROthiazide 12.5 MG CAPSULE PO (09:34)
--- NOTE | 2020-09-20 12:50 | PM.DS ---
DS: Admitting Diagnosis Admitting Diagnosis Admitting Diagnosis: bilateral ureteral obstruction DS: Discharge Diagnosis Discharge Diagnosis (1) Bilateral ureteral obstruction: Code(s): N13.5 - Crossing vessel and stricture of ureter without hydronephrosis Status: Acute Assessment and Plan: Continue with IVF Continue with IV antibiotics Urology following, recommendations appreciated S/p cystoscopy with bilateral ureteral stent placement (2) Pyelonephritis: Code(s): N12 - Tubulo-interstitial nephritis, not specified as acute or chronic Status: Acute Assessment and Plan: S/p IV antibiotics, antiemetics, IVF UC pending (3) Hypertension: Code(s): I10 - Essential (primary) hypertension Status: Acute Assessment and Plan: Resume home regimen Monitor (4) Hypothyroidism: Code(s): E03.9 - Hypothyroidism, unspecified Status: Acute Assessment and Plan: Resume home supplement (5) Morbid obesity: Code(s): E66.01 - Morbid (severe) obesity due to excess calories Status: Acute Assessment and Plan: Lifestyle modifications encouraged DS: Summary Hospital Course Hospital Course: Ms. Nova was admitted for bilateral ureteral obstruction. Urology was consulted and she underwent cystoscopy with bilateral ureteral stenting. Her symptoms have improved significantly and her pain is controlled. She has been advised to follow up with her PCP and urology. Time Spent with Patient Time attestation: Total time spent providing and/or coordinating discharge services: 55 Exam Const: General: no acute distress, alert and awake Orientation/consciousness: patient oriented x3 HENMT: Head: normocephalic and atraumatic Ears: hearing grossly normal bilaterally and external ears normal Face and sinus: face symmetric Mouth: Yes Normal oral and palatal mucosa present Eyes: Pupils: Equal, round and reactive pupils present EOM: EOMs intact bilaterally Neck: Neck: full ROM, trachea midline and no JVD Thyroid: thyroid normal Chest: Chest palpation & inspection: normal inspection of the chest Resp: Effort & Inspection: normal respiratory effort Auscultation: clear to auscultation bilaterally Cardio: Jugular venous distension: no JVD Rate: regular rate Rhythm: regular rhythm Heart sounds: S1 normal heart sound present and S2 normal heart sound present Peripheral pulses: Peripheral pulses 2+ throughout GI: Inspection: obesity Auscultation: normal bowel sounds : General: Yes CVA tenderness Back/Spine/Pelvis: Back: CVA tenderness Skin: General skin exam: normal color Rashes: no rashes Neuro: General: patient oriented x3 and CN's II-XI intact bilaterally Cranial nerves: Yes Equal, round and reactive pupils present Speech: normal speech Extrem: General: full ROM Right upper extremity: edema Left upper extremity: edema Psych: Appearance: grossly normal Affect: normal affect Judgement: Good judgement present (Psych) DS: Data Data Completed and Pending Labs on day of discharge: Labs from last 24 hours 09/20/20 09/20/20 08:58 08:58 WBC 14.0 H RBC 3.61 L Hgb 10.1 L Hct 32.0 L MCV 88.6 MCH 28.0 MCHC 31.6 L RDW 14.2 Plt Count 226 MPV 10.3 Immature Gran % (Auto) 0.6 H Neut % (Auto) 85.0 H Lymph % (Auto) 6.5 L [place] % (Auto) 7.5 Eos % (Auto) 0.3 Baso % (Auto) 0.1 L Lymph # (Auto) 0.91 [place] # (Auto) 1.1 H Eos # (Auto) 0.0 Baso # (Auto) 0.0 Abs Immat Gran (auto) 0.08 H Absolute Neuts (auto) 11.9 H Absolute Nucleated RBC 0.0 Nucleated RBC % 0.0 Sodium 140 Potassium 4.3 Chloride 106 Carbon Dioxide 27 Anion Gap 7 L BUN 42 H Creatinine 3.30 H Estim Creat Clear Calc 23 Estimated GFR 15 L Glucose 119 H Calcium 8.5 Preliminary micro results at discharge 09/17/20 23:30 Urine Culture - Preliminary Urine Clean Catch Coag neg Staph, not saprophyti
--- NOTE | 2020-09-20 13:08 | PM.IMPN ---
Progress Note: A&P Assessment and Plan (1) Bilateral ureteral obstruction: Code(s): N13.5 - Crossing vessel and stricture of ureter without hydronephrosis Status: Acute Assessment and Plan: Continue with IVF Continue with IV antibiotics Urology following, recommendations appreciated S/p cystoscopy with bilateral ureteral stent placement (2) Pyelonephritis: Code(s): N12 - Tubulo-interstitial nephritis, not specified as acute or chronic Status: Acute Assessment and Plan: S/p IV antibiotics, antiemetics, IVF UC prelim +staph, will await sensitivity Vanc has been initiated (3) Hypertension: Code(s): I10 - Essential (primary) hypertension Status: Acute Assessment and Plan: Resume home regimen Monitor (4) Hypothyroidism: Code(s): E03.9 - Hypothyroidism, unspecified Status: Acute Assessment and Plan: Resume home supplement (5) Morbid obesity: Code(s): E66.01 - Morbid (severe) obesity due to excess calories Status: Acute Assessment and Plan: Lifestyle modifications encouraged Subjective Date/time seen: 09/20/20 13:08 Pt states that she feels good; pain is controlled is eager for d/c Review of Systems Review of Systems: All systems reviewed & are unremarkable except as noted in HPI and below Exam Const: General: no acute distress, alert and awake Orientation/consciousness: patient oriented x3 HENMT: Head: normocephalic and atraumatic Ears: hearing grossly normal bilaterally and external ears normal Face and sinus: face symmetric Mouth: Yes Normal oral and palatal mucosa present Eyes: Pupils: Equal, round and reactive pupils present EOM: EOMs intact bilaterally Neck: Neck: full ROM, trachea midline and no JVD Thyroid: thyroid normal Chest: Chest palpation & inspection: normal inspection of the chest Resp: Effort & Inspection: normal respiratory effort Auscultation: clear to auscultation bilaterally Cardio: Jugular venous distension: no JVD Rate: regular rate Rhythm: regular rhythm Heart sounds: S1 normal heart sound present and S2 normal heart sound present Peripheral pulses: Peripheral pulses 2+ throughout GI: Inspection: obesity Auscultation: normal bowel sounds : General: Yes CVA tenderness Back/Spine/Pelvis: Back: CVA tenderness Skin: General skin exam: normal color Rashes: no rashes Neuro: General: patient oriented x3 and CN's II-XI intact bilaterally Cranial nerves: Yes Equal, round and reactive pupils present Speech: normal speech Extrem: General: full ROM Right upper extremity: edema Left upper extremity: edema Psych: Appearance: grossly normal Affect: normal affect Judgement: Good judgement present (Psych) Objective Data Vital Signs Vital Signs: Vital Signs - 24 hr 09/19/20 13:55 09/19/20 18:00 09/19/20 20:00 Temperature 36.3 C L 36.1 C L 36.3 C L Pulse Rate 79 82 78 Respiratory Rate 16 16 16 Blood Pressure 118/62 136/69 123/64 Pulse Oximetry 97 99 99 09/20/20 00:41 09/20/20 06:00 Temperature 36.0 C L 36.0 C L Pulse Rate 73 71 Respiratory Rate 18 20 Blood Pressure 130/69 149/76 H Pulse Oximetry 97 98 Intake/Output Intake/Output: Intake & Output 09/17/20 09/18/20 09/19/20 09/20/20 23:59 23:59 23:59 23:59 Intake Total 3350 3330 1140 Output Total 1150 2900 1000 Balance 2200 430 140 Meds/Results Medications: Active Medications Generic Name Dose Route Start Last Admin Trade Name Freq PRN Reason Stop Dose Admin Fentanyl Citrate 25 mcg 09/19/20 07:45 Fentanyl Citrate Inj (*Crx) 100 Mcg/2 Ml Vial IV PUSH Q2M PRN Pain Hydrochlorothiazide 12.5 mg 09/19/20 09:00 09/20/20 09:34 Hydrochlorothiazide 12.5 Mg Capsule PO 10/20/20 09:01 12.5 mg DAILY CHANNING Administration Hydromorphone HCl 1 mg 09/18/20 00:46 Hydromorphone Hcl Inj (*Crx) 1 Mg/Ml Syr IV PUSH Q4H PRN Pain Rated 7-10 Hydromorphone HCl 0.25 mg 09/19/20
[2020-09-20 14:00] VITALS: BP 163/77; PULSE 73; RESP 16; TEMP 36.2; O2SAT 98
[2020-09-20 16:42] LABS: Basophils Percent Auto 0.2 % (0.2-1.2); Eosinophils Absolute Auto 0.1 K/mm3 (0-0.3); Eosinophils Percent Auto 0.8 % (0-4.4); Hematocrit 35.1 % (37.0-47.0); Hemoglobin 10.9 g/dL (12.0-15.0); Immature Granulocyte Absolute 0.08 K/mm3 (0.00-0.031); Immature Granulocyte Percent A 0.6 % (0-0.5); Lymphocytes Absolute Auto 1.19 K/mm3 (0.9-3.2); Lymphocytes Percent Auto 9.6 % (18.3-44.2); Mean Corpuscular HGB Conc 31.1 g/dl (32-36); Mean Corpuscular Hemoglobin 28.2 pg (26-34); Mean Corpuscular Volume 90.7 fl (80-100); Mean Platelet Volume 9.9 fl (7.4-10.4); Monocytes Absolute Auto 0.9 K/mm3 (0.1-0.6); Monocytes Percent Auto 7.4 % (2.6-8.5); Neutrophils Absolute Auto 10.1 K/mm3 (1.3-6.7); Neutrophils Percent Auto 81.4 % (45.5-73.1); Platelet Count Result 261 k/mm3 (150-375); Red Blood Count 3.87 M/mm3 (4.2-5.4); Red Cell Distribution Width 14.3 % (11.5-14.5); White Blood Count 12.4 K/mm3 (4.5-10.0)
[2020-09-20 16:54] LABS: Anion Gap 5 mmol/L (8-16); Blood Urea Nitrogen 41 mg/dL (7-17); Calcium 8.3 mg/dL (8.4-10.2); Carbon Dioxide 29 mmol/L (22-30); Chloride 106 mmol/L (98-107); Estimated CRCL calculation 25 ml/min; Estimated Glomerular Filt Rate 16; Glucose 107 mg/dL (65-105); Potassium 3.5 mmol/L (3.4-5.0); Sodium 140 mmol/L (137-145)
[2020-09-20] MEDS: MELATONIN 3 MG TABLET PO (20:28)
[2020-09-20 21:11] VITALS: BP 146/83; PULSE 67; RESP 18; TEMP 36; O2SAT 99
[2020-09-21] MEDS: LEVOTHYROXINE SODIUM 50 MCG TABLET PO (05:35)
[2020-09-21 05:53] VITALS: BP 143/70; PULSE 62; RESP 16; TEMP 36.6; O2SAT 97
[2020-09-21] MEDS: hydroCHLOROthiazide 12.5 MG CAPSULE PO (09:34)
[2020-09-21] MEDS: lisinopriL 20 MG TABLET PO (09:34)
[2020-09-21 09:41] LABS: Basophils Percent Auto 0.4 % (0.2-1.2); Eosinophils Absolute Auto 0.2 K/mm3 (0-0.3); Hemoglobin 11.3 g/dL (12.0-15.0); Immature Granulocyte Absolute 0.03 K/mm3 (0.00-0.031); Immature Granulocyte Percent A 0.4 % (0-0.5); Lymphocytes Absolute Auto 1.57 K/mm3 (0.9-3.2); Lymphocytes Percent Auto 20.7 % (18.3-44.2); Mean Corpuscular HGB Conc 31.4 g/dl (32-36); Mean Corpuscular Hemoglobin 28.6 pg (26-34); Mean Corpuscular Volume 91.1 fl (80-100); Mean Platelet Volume 9.9 fl (7.4-10.4); Monocytes Absolute Auto 0.8 K/mm3 (0.1-0.6); Monocytes Percent Auto 10.4 % (2.6-8.5); Neutrophils Percent Auto 65.1 % (45.5-73.1); Platelet Count Result 280 k/mm3 (150-375); Red Blood Count 3.95 M/mm3 (4.2-5.4); Red Cell Distribution Width 14.1 % (11.5-14.5); White Blood Count 7.6 K/mm3 (4.5-10.0)
[2020-09-21 09:56] LABS: Anion Gap 5 mmol/L (8-16); Blood Urea Nitrogen 39 mg/dL (7-17); Calcium 8.5 mg/dL (8.4-10.2); Carbon Dioxide 30 mmol/L (22-30); Chloride 106 mmol/L (98-107); Estimated CRCL calculation 33 ml/min; Estimated Glomerular Filt Rate 22; Glucose 93 mg/dL (65-105); Potassium 4.2 mmol/L (3.4-5.0); Sodium 141 mmol/L (137-145)
[2020-09-21 14:00] VITALS: BP 177/78; PULSE 75; RESP 14; TEMP 36.8; O2SAT 99
--- NOTE | 2020-09-21 16:20 | PM.IMPN ---
Progress Note: A&P Assessment and Plan (1) Bilateral ureteral obstruction: Code(s): N13.5 - Crossing vessel and stricture of ureter without hydronephrosis Status: Acute Assessment and Plan: S/p IVF Continue with IV antibiotics Urology following, recommendations appreciated S/p cystoscopy with bilateral ureteral stent placement (2) Pyelonephritis: Code(s): N12 - Tubulo-interstitial nephritis, not specified as acute or chronic Status: Acute Assessment and Plan: S/p IV antibiotics, antiemetics, IVF UC prelim +staph Continue with Vanc (3) Hypertension: Code(s): I10 - Essential (primary) hypertension Status: Acute Assessment and Plan: Resume home regimen Monitor (4) Hypothyroidism: Code(s): E03.9 - Hypothyroidism, unspecified Status: Acute Assessment and Plan: Resume home supplement (5) Morbid obesity: Code(s): E66.01 - Morbid (severe) obesity due to excess calories Status: Acute Assessment and Plan: Lifestyle modifications encouraged Subjective Date/time seen: 09/21/20 16:20 Pt reports urinary frequency this a.m. Review of Systems Review of Systems: All systems reviewed & are unremarkable except as noted in HPI and below Exam Const: General: no acute distress, alert and awake Orientation/consciousness: patient oriented x3 HENMT: Head: normocephalic and atraumatic Ears: hearing grossly normal bilaterally and external ears normal Face and sinus: face symmetric Mouth: Yes Normal oral and palatal mucosa present Eyes: Pupils: Equal, round and reactive pupils present EOM: EOMs intact bilaterally Neck: Neck: full ROM, trachea midline and no JVD Thyroid: thyroid normal Chest: Chest palpation & inspection: normal inspection of the chest Resp: Effort & Inspection: normal respiratory effort Auscultation: clear to auscultation bilaterally Cardio: Jugular venous distension: no JVD Rate: regular rate Rhythm: regular rhythm Heart sounds: S1 normal heart sound present and S2 normal heart sound present Peripheral pulses: Peripheral pulses 2+ throughout GI: Inspection: obesity Auscultation: normal bowel sounds : General: Yes CVA tenderness Back/Spine/Pelvis: Back: CVA tenderness Skin: General skin exam: normal color Rashes: no rashes Neuro: General: patient oriented x3 and CN's II-XI intact bilaterally Cranial nerves: Yes Equal, round and reactive pupils present Speech: normal speech Extrem: General: full ROM Right upper extremity: edema Left upper extremity: edema Psych: Appearance: grossly normal Affect: normal affect Judgement: Good judgement present (Psych) Objective Data Vital Signs Vital Signs: Vital Signs - 24 hr 09/20/20 21:11 09/21/20 05:53 09/21/20 14:00 Temperature 36.0 C L 36.6 C 36.8 C Pulse Rate 67 62 75 Respiratory Rate 18 16 14 Blood Pressure 146/83 H 143/70 H 177/78 H Pulse Oximetry 99 97 99 Intake/Output Intake/Output: Intake & Output 09/18/20 09/19/20 09/20/20 09/21/20 23:59 23:59 23:59 23:59 Intake Total 3350 3330 2060 780 Output Total 1150 2900 2650 1000 Balance 2200 430 -590 -220 Meds/Results Medications: Active Medications Generic Name Dose Route Start Last Admin Trade Name Freq PRN Reason Stop Dose Admin Fentanyl Citrate 25 mcg 09/19/20 07:45 Fentanyl Citrate Inj (*Crx) 100 Mcg/2 Ml Vial IV PUSH Q2M PRN Pain Hydrochlorothiazide 12.5 mg 09/19/20 09:00 09/21/20 09:34 Hydrochlorothiazide 12.5 Mg Capsule PO 10/20/20 09:01 12.5 mg DAILY CHANNING Administration Hydromorphone HCl 1 mg 09/18/20 00:46 Hydromorphone Hcl Inj (*Crx) 1 Mg/Ml Syr IV PUSH Q4H PRN Pain Rated 7-10 Hydromorphone HCl 0.25 mg 09/19/20 07:45 Hydromorphone Hcl Inj (*Crx) 1 Mg/Ml Syr IV PUSH Q5M PRN Pain Vancomycin HCl 1,750 mg in 500 mls @ 250 mls/hr 09/21/20 15:00 09/21/20 14:31 Vancomycin 1,750 Mg/D5w 500 Ml IVPB 250 m
[2020-09-21 17:33] VITALS: BP 149/85; PULSE 78
[2020-09-21 22:00] VITALS: BP 124/58; PULSE 68; RESP 20; TEMP 36.5; O2SAT 98
[2020-09-21] MEDS: MELATONIN 3 MG TABLET PO (22:07)
[2020-09-22 05:52] LABS: Estimated CRCL calculation 37 ml/min; Estimated Glomerular Filt Rate 26
[2020-09-22 06:00] VITALS: BP 133/63; PULSE 72; RESP 20; TEMP 36.2; O2SAT 98
[2020-09-22] MEDS: LEVOTHYROXINE SODIUM 50 MCG TABLET PO (06:33)
[2020-09-22] MEDS: lisinopriL 20 MG TABLET PO (08:57)
[2020-09-22] MEDS: hydroCHLOROthiazide 12.5 MG CAPSULE PO (08:57)
[2020-09-22 09:07] VITALS: RESP 20; O2SAT 98
[2020-09-22] MEDS: NITROFURANTOIN MONOHYD MACROCR 100 MG CAP PO (10:18)
[2020-09-22 14:00] VITALS: BP 158/82; PULSE 77; RESP 22; TEMP 36.7; O2SAT 97
--- NOTE | 2020-09-22 14:31 | PM.DS ---
DS: Admitting Diagnosis Admitting Diagnosis Admitting Diagnosis: bilateral ureteral obstruction DS: Discharge Diagnosis Discharge Diagnosis (1) Bilateral ureteral obstruction: Code(s): N13.5 - Crossing vessel and stricture of ureter without hydronephrosis Status: Acute Assessment and Plan: S/p IVF Continue with IV antibiotics Urology following, recommendations appreciated S/p cystoscopy with bilateral ureteral stent placement F/u o/p (2) Pyelonephritis: Code(s): N12 - Tubulo-interstitial nephritis, not specified as acute or chronic Status: Acute Assessment and Plan: S/p IV antibiotics, antiemetics, IVF UC +staph S/p Vanc Macrobid x3 days (3) Hypertension: Code(s): I10 - Essential (primary) hypertension Status: Acute Assessment and Plan: Resume home regimen Monitor (4) Hypothyroidism: Code(s): E03.9 - Hypothyroidism, unspecified Status: Acute Assessment and Plan: Resume home supplement (5) Morbid obesity: Code(s): E66.01 - Morbid (severe) obesity due to excess calories Status: Acute Assessment and Plan: Lifestyle modifications encouraged DS: Summary Hospital Course Hospital Course: Ms. 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 She was found with bilateral ureteral obstruction. She underwent cystoscopy with bilateral stenting per Dr. Harden. She was also diagnosed with a UTI and treated with vancomycin and will discharge home on Macrobid. She was complaining of some urinary frequency. BMP is improving and she has been advised to f/u with urology outpatient. Time Spent with Patient Time attestation: Total time spent providing and/or coordinating discharge services: Exam Const: General: no acute distress, alert and awake Orientation/consciousness: patient oriented x3 HENMT: Head: normocephalic and atraumatic Ears: hearing grossly normal bilaterally and external ears normal Face and sinus: face symmetric Mouth: Yes Normal oral and palatal mucosa present Eyes: Pupils: Equal, round and reactive pupils present EOM: EOMs intact bilaterally Neck: Neck: full ROM, trachea midline and no JVD Thyroid: thyroid normal Chest: Chest palpation & inspection: normal inspection of the chest Resp: Effort & Inspection: normal respiratory effort Auscultation: clear to auscultation bilaterally Cardio: Jugular venous distension: no JVD Rate: regular rate Rhythm: regular rhythm Heart sounds: S1 normal heart sound present and S2 normal heart sound present Peripheral pulses: Peripheral pulses 2+ throughout GI: Inspection: obesity Auscultation: normal bowel sounds : General: Yes CVA tenderness Back/Spine/Pelvis: Back: CVA tenderness Skin: General skin exam: normal color Rashes: no rashes Neuro: General: patient oriented x3 and CN's II-XI intact bilaterally Cranial nerves: Yes Equal, round and reactive pupils present Speech: normal speech Extrem: General: full ROM Right upper extremity: edema Left upper extremity: edema Psych: Appearance: grossly normal Affect: normal affect Judgement: Good judgement present (Psych) DS: Data Data Completed and Pending Labs on day of discharge: Labs from last 24 hours 09/22/20 05:13 Creatinine 2.00 H Estim Creat Clear Calc 37 Estimated GFR 26 L Discharge Plan Discharge Attending physician on discharge: Clinton Parker Consulting providers: Alphonse Small Discharging Clinician: Mckenzie Rivera Patient Disposition: Home, Self-Care Activity: as tolerated Diet: heart healthy Discharge Instructions: for symptoms of frequency practice Kegel exercises, monitor fluid and food intake; avoid caffeine and carbonated drinks Patient Instructions: Antibiotic Form Stand Alone Forms: General Discharge Information
== END 2020-09-22 16:30 | disposition home or self-care (01) | DRG 660 ==
LOC: ANHED 09-18 01:02 → ANH2MED 09-18 10:26
PROVIDERS: Emergency Medicine; Urology; Admitting Provider Family Medicine; Emergency Provider General Practice; PCP Family Medicine Sports Medicine; Visit Provider Nurse Practitioner Adult Health
PROC: 0T788DZ Dilation of Bilateral Ureters with Intraluminal Device, Via Natural or Artificial Opening Endoscopic (ICD-10-PCS; CPT 52352; principal; 2020-09-19 08:15)
DX: N13.5 Crossing vessel and stricture of ureter without hydronephrosis (principal); N12 Tubulo-interstitial nephritis, not specified as acute or chronic; Z68.41 Body mass index [BMI] 40.0-44.9, adult; E66.01 Morbid (severe) obesity due to excess calories; N20.0 Calculus of kidney; I10 Essential (primary) hypertension; I89.0 Lymphedema, not elsewhere classified; E03.9 Hypothyroidism, unspecified; Z79.899 Other long term (current) drug therapy; Z88.2 Allergy status to sulfonamides; Z85.41 Personal history of malignant neoplasm of cervix uteri
CPT/HCPCS: 36415; 74176; 74420; 80048; 80053; 81001; 82565; 83605; 83690; 85025; 85027; 87077; 87086; 87088; 87186; 96361; 96365; 96374; 96375; 99285; A9270; C1758; C1769; C1887; C2617; J0131; J0696; J1100; J1170; J2405; J2704; J3370; J7030; J7120; Q9966

== ENCOUNTER 2020-10-13 15:57 | Inpatient (IN) | payer OTHER, SELFPAY ==
[2020-10-13] VITALS (14 sets, daily range): BP systolic 109–142; BP diastolic 45–82; PULSE 87–122; RESP 11–22; TEMP 36.1–36.5; O2SAT 96–100; BMI 41.5; BMI 39.9
--- NOTE | ~2020-10-13 | CT_ITS ---
EXAMINATION: CT abdomen pelvis wo con DATE: 10/13/2020 19:48 INDICATION: Left lower quadrant pain TECHNIQUE: Computed tomography (CT) of the abdomen and pelvis was performed without intravenous contr ast. The dose-length product (DLP) was 893.19 mGy-cm. Automated exposure control and iterative recons truction technique were employed. COMPARISON: 09/17/2020 FINDINGS: The lung bases are clear. The heart size is normal. There is a 4.7 cm cyst in the left hepa tic lobe. The gallbladder is surgically absent. The spleen, pancreas, and adrenal glands are normal. Bilateral internal ureteral stents are in expected position. There are surgical changes of the urinar y bladder. There appears to be mild inflammatory fat stranding surrounding the renal pelves and urete rs. There are nonobstructing stones in the lower pole of the left kidney measuring up to 8 mm. No pat hologically enlarged abdominal or pelvic lymph nodes are identified. Changes of retroperitoneal lymph node dissection are noted. The appendix is normal. There is no free intraperitoneal gas or evidence of bowel obstruction. There is mild lumbar spondylosis. IMPRESSION: 1. Bilateral internal ureteral stents in expected position with subtle inflammatory change surroundin g the ureters and renal pelves, suggestive of urinary tract infection. Reviewed, dictated and finalized at location A. IMPRESSION: 1. Bilateral internal ureteral stents in expected position with subtle inflamma tory change surrounding the ureters and renal pelves, suggestive of urinary tra ct infection.
--- NOTE | ~2020-10-13 | XR_ITS ---
EXAMINATION: XR abdomen/kub 1V INDICATION: Fever, bilateral internal ureteral stents TECHNIQUE: Supine views of the abdomen were obtained on 2 radiographs. COMPARISON: 01/05/2020 FINDINGS: Bilateral internal ureteral stents are in expected position. No urolithiasis is identified. There are cholecystectomy clips in the right upper quadrant. Changes of retroperitoneal and pelvic l ymph node dissection are noted. There are no dilated loops of bowel. Severe bilateral hip osteoarthri tis is noted. IMPRESSION: 1. No radiographic correlate for the patient's symptoms. Reviewed, dictated and finalized at location A.
--- NOTE | ~2020-10-13 | XR_ITS ---
EXAMINATION: XR chest 2V DATE: 10/13/2020 18:55 INDICATION: Fever TECHNIQUE: PA and lateral views of the chest are obtained. COMPARISON: None available FINDINGS: The lungs are free of acute opacities. There is no pleural effusion or pneumothorax. The ca rdiomediastinal silhouette is normal. There is mild thoracic spondylosis. Surgical clips in the right upper quadrant are likely from prior cholecystectomy. IMPRESSION: 1. No acute cardiopulmonary abnormality. Reviewed, dictated and finalized at location A.
[2020-10-13 16:39] LABS: Basophils Percent Auto 0.2 % (0.2-1.2); Eosinophils Percent Auto 0.1 % (0-4.4); Hematocrit 36.3 % (37.0-47.0); Hemoglobin 11.7 g/dL (12.0-15.0); Immature Granulocyte Absolute 0.09 K/mm3 (0.00-0.031); Immature Granulocyte Percent A 0.7 % (0-0.5); Lymphocytes Absolute Auto 0.82 K/mm3 (0.9-3.2); Lymphocytes Percent Auto 6.7 % (18.3-44.2); Mean Corpuscular HGB Conc 32.2 g/dl (32-36); Mean Corpuscular Hemoglobin 27.7 pg (26-34); Mean Corpuscular Volume 85.8 fl (80-100); Mean Platelet Volume 10.1 fl (7.4-10.4); Monocytes Absolute Auto 1.7 K/mm3 (0.1-0.6); Monocytes Percent Auto 13.9 % (2.6-8.5); Neutrophils Absolute Auto 9.6 K/mm3 (1.3-6.7); Neutrophils Percent Auto 78.4 % (45.5-73.1); Platelet Count Result 280 k/mm3 (150-375); Red Blood Count 4.23 M/mm3 (4.2-5.4); Red Cell Distribution Width 14.5 % (11.5-14.5); White Blood Count 12.2 K/mm3 (4.5-10.0)
[2020-10-13 16:50] LABS: Alanine Aminotransferase 36 U/L (4-35); Alkaline Phosphatase 121 U/L (38-126); Anion Gap 12 mmol/L (8-16); Aspartate Amino Transferase 58 U/L (14-36); Bilirubin,Total 0.5 mg/dL (0.2-1.3); Blood Urea Nitrogen 38 mg/dL (7-17); Calcium 9.4 mg/dL (8.4-10.2); Carbon Dioxide 22 mmol/L (22-30); Chloride 100 mmol/L (98-107); Estimated CRCL calculation 33 ml/min; Estimated Glomerular Filt Rate 23; Glucose 128 mg/dL (65-105); Potassium 3.6 mmol/L (3.4-5.0); Sodium 134 mmol/L (137-145)
[2020-10-13 18:19] LABS: Add Urine Microscopic? YES; Appearance Urine Cloudy (Clear); Bacteria Urine 1+ /hpf; Bilirubin Urine Negative (Negative); Blood Urine 3+ (Negative); Color Urine Amber (Yellow); Glucose Urine UA Negative (Negative); Ketones Urine Negative (Negative); Leukocyte Esterase Ur 3+ LEU/UL (Negative); Mucus Urine Rare /lpf; Nitrate Urine Positive (Negative); Protein Urine 3+ mg/dL (Negative); RBC Urine >75 /hpf (0-2); Specific Grav Ur 1.015 (1.001-1.035); Urobilinogen Urine Negative mg/dL (<2.0); WBC Urine >75 /hpf
--- NOTE | 2020-10-13 18:45 | ED.FEVER ---
HPI - Fever General Chief Complaint: Fever Stated Complaint: fever post urinary stents Time Seen by Provider: 10/13/20 18:03 Source: patient Mode of arrival: ambulatory Limitations: no limitations History of Present Illness HPI Narrative: This is a 55 year old female who presents for evaluation of left lower abdominal pain, nausea and vomiting. She had bilateral ureteral stents placed 3-4 weeks ago by urologist. She was discharged with antibiotics. She developed fever, chills, nausea and vomiting on Tuesday. Her symptoms have continued. She states her urologist Dr. Harden recommended that she come to ER for xray and evaluation of her fever. She reports fever 102 F prior to arrival to ER. She denies taking any medication to decreased her fever today. She reports hematuria. She denies cough, sore throat, sob or chest pain. Related Data Home Medications Medication Instructions Recorded Confirmed ibuprofen [IBU] 600 mg PO QID PRN 01/05/20 10/13/20 levothyroxine [Synthroid] 50 mcg PO DAILY 01/05/20 10/13/20 lisinopril-hydrochlorothiazide 1 tablet PO DAILY 01/05/20 10/13/20 [Zestoretic] Allergies Allergy/AdvReac Type Severity Reaction Status Date / Time Sulfa (Sulfonamide AdvReac Intermediate NAUSEA Verified 09/19/20 07:36 Antibiotics) Review of Systems Review of Systems: All systems reviewed & are unremarkable except as noted in HPI and below Constitutional: Constitutional: Reports chills and Reports fever(s) Cardiovascular: Cardiovascular: Denies chest pain Respiratory: Respiratory: Denies cough and Denies dyspnea Gastrointestinal: Gastrointestinal: Reports abdominal pain, Reports nausea and Reports vomiting Genitourinary: Genitourinary: Reports hematuria Musculoskeletal: Musculoskeletal: Denies back pain Neurologic: Reports weakness PMFSH Past Medical History Medical History Chronic acquired lymphedema History of cervical cancer Treated with radiation therapy and chemotherapy with complications including chronic lymphedema, and ureteral stricture due to radiation Hypertension Hypothyroidism Morbid obesity Surgical History Surgical History History of section due to breech presentation History of cholecystectomy History of tonsillectomy Ureteral stricture, left status post resection with reimplantation of the ureter May 2016 Family History Family History Mother Breast cancer Cerebrovascular accident Diabetes mellitus Heart disease Father Cerebrovascular accident Social History Social History Social History: Primary care physician: Dr. Hooks Code status: Full code Smoking status: Never smoker Alcohol intake: current Drinks per week: 1 Substance use: never Substance use type: does not use Additional living arrangements comments: She is andlives with her 19-year-old son. She also has a 29-year-old son. 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 Gender identity (if verbalized by the patient): Female Spiritual care concerns: No Exam Const: General: no acute distress and alert Orientation/consciousness: patient oriented x3 Neck: Neck: no lymphadenopathy Resp: Effort & Inspection: normal respiratory effort and no retractions Auscultation: clear to auscultation bilaterally Cardio: Rate: regular rate Rhythm: regular rhythm Heart sounds: no murmurs GI: GI Palp: Yes Soft to palpation, Yes Tenderness to palpation present (GI) (bilateral lower quadrant) and No Guarding due to palpation present (GI) Auscultation: normal bowel sounds : General: Yes no CVA tenderness Skin: General skin exam: normal c
[2020-10-13] MEDS: ONDANSETRON INJ 4 MG/2 ML VIAL IV PUSH (19:35)
[2020-10-13] MEDS: LACTATED RINGERS 1,000 ML 999 ML IV CONT (19:35)
--- NOTE | 2020-10-13 20:20 | PC.NURSE ---
2nd set of blood cultures obtained and sent. Preparing to initiate IV abx.
--- NOTE | 2020-10-13 21:31 | PC.NURSE ---
Admission orders received. Awaiting bed availability.
--- NOTE | 2020-10-13 22:00 | PC.NURSE ---
Continue to await bed assignment. Pt denies needs at present.
--- NOTE | 2020-10-13 22:33 | PC.NURSE ---
Continue to await bed assignment. Pt denies needs at present.
--- NOTE | 2020-10-13 23:35 | ADMGEN ---
This patient, Raquel Nova, was admitted to 2 Medical Room 251-01. Patient/family oriented to hospital policies and general routines including ID bracelet, bed and alarms, visiting hours, pain management, procedures, bathroom and other care routines, personal items, smoking policy, room service/diet, and visiting hours. Information on how to activate the Rapid Response Team has been discussed. Patient/Family are encouraged to report perceived risks to care and to ask questions if they do not understand what they are told or what they should do.
[2020-10-14] MEDS: SODIUM CHLORIDE 0.9% IV 1,000 ML 125 ML IV CONT ×2 (00:04→08:03)
--- NOTE | 2020-10-14 03:35 | PM.IMHP ---
H&P: HPI History of Present Illness Date/Time: 10/14/20 03:35 Chief Complaint: ABDOMINAL PAIN Narrative: THIS IS A 55-YEAR-OLD FEMALE WITH PAST MEDICAL HISTORY SIGNIFICANT FOR CERVICAL CA STATUS POST RADIATION A RESULT OF THESE PATIENT HAS HAD OBSTRUCTIVE UROPATHY OVER THE YEARS HAS REQUIRED MULTIPLE STENTS PLACEMENTS IN HER URETERS PATIENT ALSO HAS CHRONIC KIDNEY DISEASE, BILATERAL LOWER EXTREMITY CHRONIC LYMPHEDEMA. PATIENT PRESENTED TO THE EMERGENCY ROOM AFTER SHE HAD STENTS PLACED BILATERALLY IN URETERS 3-4 WEEKS AGO PRESENTED TO THE EMERGENCY ROOM WITH FEVERS CHILLS URINARY URGENCY. A CT OF ABDOMEN AND PELVIS SHOWED INFLAMMATION AROUND THE STENT AND A UA WAS SIGNIFICANT FOR INCREASED NUMBERS OF WBC'S. PATIENT HAS HAD SOME NAUSEA BUT NO VOMITING POOR APPETITE NO COUGH NO SPUTUM PRODUCTION NO SHORTNESS OF BREATH. UROLOGY WAS CONSULTED FROM THE EMERGENCY ROOM PATIENT IS GOING TO PLAY BE PLACED IN THE INPATIENT SETTING FOR FURTHER TREATMENT AND EVALUATION. A WBC WAS SIGNIFICANT FOR LEUKOCYTOSIS OF 12,000, A CREATININE LEVEL WAS AT 2.2. Review of Systems Review of Systems: Narrative: PATIENT PRESENTED TO THE EMERGENCY ROOM DUE TO URINARY URGENCY FEVERS CHILLS STATUS POST BILATERAL URETERS STENT PLACEMENT 3-4 WEEKS AGO Constitutional: Constitutional: Reports chills, Reports fatigue and Reports fever(s) Eyes: Eyes: Denies change in vision ENT: Denies nasal congestion and Denies nasal discharge Cardiovascular: Cardiovascular: Denies chest pain, Denies palpitations and Denies dyspnea Respiratory: Respiratory: Denies cough and Denies dyspnea Gastrointestinal: Gastrointestinal: Reports nausea and Reports vomiting Genitourinary: Genitourinary: Reports urinary urgency Musculoskeletal: Musculoskeletal: Denies arthralgias and Denies joint swelling Integumentary/Breasts: Skin/Breast: Denies rash Neurologic: Denies dizziness, Denies focal weakness and Denies Sensory deficit (Neuro) Endocrine: Endocrine: Denies no additional endocrine complaints Hematologic/Lymphatic: Hematologic/Lymphatic: Denies no additional hematologic/lymphatic complaints Allergic/Immunologic: Allergic/Immunologic: Denies no additional allergic/immunologic complaints [facility] Past Medical History Medical History (Updated 10/14/20 @ 04:16 by Lexie Pennington MD) Chronic acquired lymphedema History of cervical cancer Treated with radiation therapy and chemotherapy with complications including chronic lymphedema, and ureteral stricture due to radiation Hypertension Hypothyroidism Morbid obesity Surgical History Surgical History (Updated 10/13/20 @ 21:34 by Savannah Kurtz MD) History of section due to breech presentation History of cholecystectomy History of tonsillectomy Ureteral stricture, left status post resection with reimplantation of the ureter May 2016 Family History Family History Mother Breast cancer Cerebrovascular accident Diabetes mellitus Heart disease Father Cerebrovascular accident Social History Social History Social History: Primary care physician: Dr. Hooks Code status: Full code Smoking status: Never smoker Alcohol intake: current Drinks per week: 1 Substance use: never Substance use type: does not use Additional living arrangements comments: She is andlives with her 19-year-old son. She also has a 29-year-old son. 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 Gender identity (if verbalized by the patient): Female Spiritual care concerns: No Meds Home Medications and Allergies Home Medications Medication Instructions Recorded Confirmed Type ibuprofen [IBU] 600 mg PO QID PRN 01/05/20 10/13/20 History levothyroxine [Synthroid] 50 mcg PO DAILY 01/05/20
[2020-10-14 05:50] LABS: Basophils Percent Auto 0.2 % (0.2-1.2); Eosinophils Absolute Auto 0.1 K/mm3 (0-0.3); Eosinophils Percent Auto 0.8 % (0-4.4); Hematocrit 30.2 % (37.0-47.0); Hemoglobin 9.9 g/dL (12.0-15.0); Immature Granulocyte Absolute 0.06 K/mm3 (0.00-0.031); Immature Granulocyte Percent A 0.7 % (0-0.5); Mean Corpuscular HGB Conc 32.8 g/dl (32-36); Mean Corpuscular Hemoglobin 28.1 pg (26-34); Mean Corpuscular Volume 85.8 fl (80-100); Mean Platelet Volume 10.4 fl (7.4-10.4); Monocytes Absolute Auto 1.6 K/mm3 (0.1-0.6); Monocytes Percent Auto 18.8 % (2.6-8.5); Neutrophils Absolute Auto 5.6 K/mm3 (1.3-6.7); Neutrophils Percent Auto 67.5 % (45.5-73.1); Platelet Count Result 215 k/mm3 (150-375); Red Blood Count 3.52 M/mm3 (4.2-5.4); Red Cell Distribution Width 14.3 % (11.5-14.5); White Blood Count 8.4 K/mm3 (4.5-10.0)
[2020-10-14 06:00] VITALS: BP 108/75; PULSE 85; RESP 16; TEMP 36.9; O2SAT 95
[2020-10-14 06:06] LABS: Alanine Aminotransferase 35 U/L (4-35); Albumin Level 3.1 g/dL (3.5-5.1); Alkaline Phosphatase 85 U/L (38-126); Anion Gap 7 mmol/L (8-16); Aspartate Amino Transferase 47 U/L (14-36); Bilirubin,Total 0.2 mg/dL (0.2-1.3); Blood Urea Nitrogen 36 mg/dL (7-17); Calcium 8.2 mg/dL (8.4-10.2); Carbon Dioxide 25 mmol/L (22-30); Chloride 103 mmol/L (98-107); Estimated CRCL calculation 34 ml/min; Estimated Glomerular Filt Rate 24; Glucose 108 mg/dL (65-105); Potassium 3.3 mmol/L (3.4-5.0); Sodium 135 mmol/L (137-145)
[2020-10-14 09:50] VITALS: O2SAT 90
--- NOTE | 2020-10-14 13:41 | PM.IMPN ---
Progress Note: A&P Assessment and Plan (1) Pyelonephritis: Code(s): N12 - Tubulo-interstitial nephritis, not specified as acute or chronic Status: Acute Assessment and Plan: A STARTED ON ROCEPHIN AWaiting UC added nitrofurantoin await urology consult (2) S/P ureteral stent placement: Code(s): Z96.0 - Presence of urogenital implants Status: Acute Assessment and Plan: PATIENT HAD STENTS PLACED 3-4 WEEKS AGO UROLOGY HAS BEEN CONSULTED (3) Bilateral ureteral obstruction: Code(s): N13.5 - Crossing vessel and stricture of ureter without hydronephrosis Status: Acute Assessment and Plan: STATUS RECENT POST STENT PLACEMENT (4) Hydronephrosis: Code(s): N13.30 - Unspecified hydronephrosis Status: Acute Assessment and Plan: STATUS RECENT POST STENT PLACEMENT (5) Intractable nausea and vomiting: Code(s): R11.2 - Nausea with vomiting, unspecified Status: Acute Assessment and Plan: SUPPORTIVE CARE (6) Hydroureter: Code(s): N13.4 - Hydroureter Status: Acute Assessment and Plan: STATUS RECENT POST STENT (7) Lymphedema: Code(s): I89.0 - Lymphedema, not elsewhere classified Status: Acute Assessment and Plan: CHRONIC LYMPHEDEMA (8) History of cervical cancer: Code(s): Z85.41 - Personal history of malignant neoplasm of cervix uteri Status: Acute Assessment and Plan: STATUS POST RADIATION (9) Hypertension: Code(s): I10 - Essential (primary) hypertension Status: Acute Assessment and Plan: RESTART HOME MEDS Subjective Date/time seen: 10/14/20 13:41 Interval history: 55-YEAR-OLD FEMALE WITH PAST MEDICAL HISTORY SIGNIFICANT FOR CERVICAL CA STATUS POST RADIATION A RESULT OF THESE PATIENT HAS HAD OBSTRUCTIVE UROPATHY OVER THE YEARS HAS REQUIRED MULTIPLE STENTS PLACEMENTS IN HER URETERS PATIENT ALSO HAS CHRONIC KIDNEY DISEASE, BILATERAL LOWER EXTREMITY CHRONIC LYMPHEDEMA. Pt admitted for pyelonephritis complains of slight dysuria and pain in the left groin. Review of Systems Review of Systems: All systems reviewed & are unremarkable except as noted in HPI and below Exam Const: General: ill appearing acutely Orientation/consciousness: patient oriented x3 Resp: Effort & Inspection: normal respiratory effort Auscultation: clear to auscultation bilaterally Cardio: Jugular venous distension: no JVD Rate: regular rate Rhythm: regular rhythm Heart sounds: S1 normal heart sound present and S2 normal heart sound present Back/Spine/Pelvis: Back: other (left groin [pain ) Skin: General skin exam: pallor Rashes: no rashes Wounds: no wounds Neuro: General: patient oriented x3 and CN's II-XI intact bilaterally Cranial nerves: Yes CN's II-XII intact bilaterally and Yes Equal, round and reactive pupils present Cognition (Neuro): normal cognition Speech: normal speech Gait exam (Neuro): Normal gait present Motor exam (neuro): 5/5 motor strength present throughout Sensory Exam: No Sensory deficit (Neuro) Extrem: General: normal to inspection, full ROM, no joint enlargement and no pedal edema Objective Data Vital Signs Vital Signs: Vital Signs - 24 hr 10/13/20 16:27 10/13/20 17:55 10/13/20 18:00 Temperature 36.5 C Pulse Rate 122 H 109 H 103 H Respiratory Rate 20 12 15 Blood Pressure 142/82 H Pulse Oximetry 98 99 98 10/13/20 18:01 10/13/20 18:33 10/13/20 18:55 Temperature Pulse Rate 103 H 101 H 109 H Respiratory Rate 13 14 20 Blood Pressure 109/66 Pulse Oximetry 97 100 99 10/13/20 19:08 10/13/20 19:15 10/13/20 20:30 Temperature Pulse Rate 99 102 H 91 Respiratory Rate 19 16 22 H Blood Pressure Pulse Oximetry 96 99 100 10/13/20 20:46 10/13/20 21:16 10/13/20 21:34 Temperature Pulse Rate 90 87 91 Respiratory Rate 11 L 12 20 Blood Pressure 116/71 118/45 L Pulse Oximetry 100 99 99 10/13/20 23:47 10/13
[2020-10-14 14:00] VITALS: BP 108/57; PULSE 80; RESP 18; TEMP 36.4; O2SAT 95
[2020-10-14 14:34] LABS: Anion Gap 6 mmol/L (8-16); Blood Urea Nitrogen 36 mg/dL (7-17); Calcium 8.4 mg/dL (8.4-10.2); Carbon Dioxide 27 mmol/L (22-30); Chloride 104 mmol/L (98-107); Estimated CRCL calculation 36 ml/min; Estimated Glomerular Filt Rate 26; Glucose 91 mg/dL (65-105); Potassium 3.5 mmol/L (3.4-5.0); Sodium 137 mmol/L (137-145)
--- NOTE | 2020-10-14 15:41 | WPDURCON ---
Assessment and Plan Assessment and plan (1) S/P ureteral stent placement: Code(s): Z96.0 - Presence of urogenital implants Status: Acute Assessment and Plan: Patient is scheduled with Dr. Harden for stent exchange in a few months. No plans for stent exchange now, her stents are in place and draining. (2) UTI (urinary tract infection): Code(s): N39.0 - Urinary tract infection, site not specified Status: Acute Assessment and Plan: Continue IV antibiotics, tailor to culture results. No further evaluation needed at this time. Urology Consult Note HPI Date Seen: 10/14/20 Requesting Physician: Lexie Pennington MD Primary Care Provider: Bruce Orozco, Consult Narrative Narrative: Raquel Nova is a 55 year old female who presented to the ER with c/o fever, chills, nausea and vomiting x 4 days as well as hematuria. She had a cystoscope with bilateral retrograde pyelograms and bilateral stent placements on 09/19/[address] Harden. Her UA shows nitrates and high suspicion otherwise of a UTI. Her CT scan this admission shows her stents in place with inflammatory changes indicating a UTI, otherwise upper tracts are normal. She is feeling weak and fatigued. Review of Systems Cardiovascular: Cardiovascular: Denies chest pain Respiratory: Respiratory: Reports no additional respiratory complaints Gastrointestinal: Gastrointestinal: Denies abdominal pain, Denies nausea and Denies vomiting Genitourinary: Genitourinary: Reports hematuria, Reports dysuria, Denies flank pain and Reports urinary urgency PMFSH Past Medical History Medical History Chronic acquired lymphedema History of cervical cancer Treated with radiation therapy and chemotherapy with complications including chronic lymphedema, and ureteral stricture due to radiation Hypertension Hypothyroidism Morbid obesity Surgical History Surgical History History of section due to breech presentation History of cholecystectomy History of tonsillectomy Ureteral stricture, left status post resection with reimplantation of the ureter May 2016 Family History Family History Mother Breast cancer Cerebrovascular accident Diabetes mellitus Heart disease Father Cerebrovascular accident Social History Social History Social History: Primary care physician: Dr. Hooks Code status: Full code Smoking status: Never smoker Alcohol intake: current Drinks per week: 1 Substance use: never Substance use type: does not use Additional living arrangements comments: She is andlives with her 19-year-old son. She also has a 29-year-old son. 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 Gender identity (if verbalized by the patient): Female Spiritual care concerns: No Meds Home Medications and Allergies Home Medications Medication Instructions Recorded Confirmed Type ibuprofen [IBU] 600 mg PO QID PRN 01/05/20 10/13/20 History levothyroxine [Synthroid] 50 mcg PO DAILY 01/05/20 10/13/20 History lisinopril-hydrochlorothiazide 1 tablet PO DAILY 01/05/20 10/13/20 History [Zestoretic] oxybutynin chloride 5 mg PO TID PRN 10/14/20 10/14/20 History Allergies Allergy/AdvReac Type Severity Reaction Status Date / Time Sulfa (Sulfonamide AdvReac Intermediate NAUSEA Verified 09/19/20 07:36 Antibiotics) Vital Signs Vital Signs - 24 hr 10/13/20 16:27 10/13/20 17:55 10/13/20 18:00 Temperature 97.7 F Pulse Rate 122 H 109 H 103 H Respiratory Rate 20 12 15 Blood Pressure 142/82 H Pulse Oximetry 98 99 98 10/13/20 18:01 10/13/20 18:33 10/13/20 18:55
[2020-10-14] MEDS: SODIUM CHLORIDE 0.9% IV 1,000 ML 75 ML IV CONT (16:31)
[2020-10-14 20:12] VITALS: BP 101/55; PULSE 83; RESP 16; TEMP 36.4; O2SAT 97
[2020-10-14] MEDS: NITROFURANTOIN MONOHYD MACROCR 100 MG CAP PO (21:52)
[2020-10-15 05:10] VITALS: BP 114/58; PULSE 68; RESP 16; TEMP 36.6; O2SAT 98
[2020-10-15] MEDS: SODIUM CHLORIDE 0.9% IV 1,000 ML 75 ML IV CONT ×2 (05:15→19:10)
[2020-10-15] MEDS: LEVOTHYROXINE SODIUM 50 MCG TABLET PO (05:16)
[2020-10-15] MEDS: NITROFURANTOIN MONOHYD MACROCR 100 MG CAP PO ×2 (08:02→21:04)
[2020-10-15] MEDS: lisinopriL 20 MG TABLET PO (08:02)
[2020-10-15] MEDS: hydroCHLOROthiazide 12.5 MG CAPSULE PO (08:02)
[2020-10-15] MEDS: POTASSIUM CHLORIDE 20 MEQ PACKET (FOR LIQUID) PO (08:02)
--- NOTE | 2020-10-15 13:31 | PM.IMPN ---
Progress Note: A&P Assessment and Plan (1) Pyelonephritis: Code(s): N12 - Tubulo-interstitial nephritis, not specified as acute or chronic Status: Acute Assessment and Plan: A STARTED ON ROCEPHIN uc back bc pending, dc tomorrow once full blood culture report is back (2) S/P ureteral stent placement: Code(s): Z96.0 - Presence of urogenital implants Status: Acute Assessment and Plan: PATIENT HAD STENTS PLACED 3-4 WEEKS AGO UROLOGY HAS BEEN CONSULTED (3) Bilateral ureteral obstruction: Code(s): N13.5 - Crossing vessel and stricture of ureter without hydronephrosis Status: Acute Assessment and Plan: STATUS RECENT POST STENT PLACEMENT (4) Hydronephrosis: Code(s): N13.30 - Unspecified hydronephrosis Status: Acute Assessment and Plan: STATUS RECENT POST STENT PLACEMENT (5) Intractable nausea and vomiting: Code(s): R11.2 - Nausea with vomiting, unspecified Status: Acute Assessment and Plan: SUPPORTIVE CARE (6) Hydroureter: Code(s): N13.4 - Hydroureter Status: Acute Assessment and Plan: STATUS RECENT POST STENT (7) Lymphedema: Code(s): I89.0 - Lymphedema, not elsewhere classified Status: Acute Assessment and Plan: CHRONIC LYMPHEDEMA (8) History of cervical cancer: Code(s): Z85.41 - Personal history of malignant neoplasm of cervix uteri Status: Acute Assessment and Plan: STATUS POST RADIATION (9) Hypertension: Code(s): I10 - Essential (primary) hypertension Status: Acute Assessment and Plan: RESTART HOME MEDS Subjective Date/time seen: 10/15/20 13:31 Interval history: 55-YEAR-OLD FEMALE WITH PAST MEDICAL HISTORY SIGNIFICANT FOR CERVICAL CA STATUS POST RADIATION A RESULT OF THESE PATIENT HAS HAD OBSTRUCTIVE UROPATHY OVER THE YEARS HAS REQUIRED MULTIPLE STENTS PLACEMENTS IN HER URETERS PATIENT ALSO HAS CHRONIC KIDNEY DISEASE, BILATERAL LOWER EXTREMITY CHRONIC LYMPHEDEMA. Pt admitted for pyelonephritis complains of slight dysuria feels much better, uc resulted bc still awaiting. Review of Systems Review of Systems: All systems reviewed & are unremarkable except as noted in HPI and below Exam Const: General: ill appearing acutely Nutritional Appearance: average body habitus Orientation/consciousness: patient oriented x3 Eyes: Pupils: Equal, round and reactive pupils present Resp: Effort & Inspection: normal respiratory effort Auscultation: clear to auscultation bilaterally Cardio: Jugular venous distension: no JVD Rate: regular rate Rhythm: regular rhythm Heart sounds: S1 normal heart sound present and S2 normal heart sound present Back/Spine/Pelvis: Back: no CVA tenderness Skin: General skin exam: pallor Rashes: no rashes Wounds: no wounds Neuro: General: patient oriented x3 and CN's II-XI intact bilaterally Cranial nerves: Yes CN's II-XII intact bilaterally and Yes Equal, round and reactive pupils present Cognition (Neuro): normal cognition Speech: normal speech Gait exam (Neuro): Normal gait present Motor exam (neuro): 5/5 motor strength present throughout Sensory Exam: No Sensory deficit (Neuro) Extrem: General: normal to inspection, full ROM, no joint enlargement and no pedal edema Objective Data Vital Signs Vital Signs: Vital Signs - 24 hr 10/14/20 14:00 10/14/20 20:12 10/15/20 05:10 Temperature 36.4 C 36.4 C 36.6 C Pulse Rate 80 83 68 Respiratory Rate 18 16 16 Blood Pressure 108/57 L 101/55 L 114/58 L Pulse Oximetry 95 97 98 Intake/Output Intake/Output: Intake & Output 10/12/20 10/13/20 10/14/20 10/15/20 23:59 23:59 23:59 23:59 Intake Total 1350 2630 1500 Output Total 1300 1250 Balance 1350 1330 250 Meds/Results Medications: Active Medications Generic Name Dose Route Start Last Admin Trade Name Freq PRN Reason Stop Dose Admin Hydrochlorothiazide 12.5 mg 10/15/20 09:00 05
[2020-10-15 14:00] VITALS: BP 113/72; PULSE 66; RESP 18; TEMP 36.3; O2SAT 99
[2020-10-15 15:26] LABS: Anion Gap 6 mmol/L (8-16); Blood Urea Nitrogen 30 mg/dL (7-17); Calcium 8.6 mg/dL (8.4-10.2); Carbon Dioxide 28 mmol/L (22-30); Chloride 105 mmol/L (98-107); Estimated CRCL calculation 42 ml/min; Estimated Glomerular Filt Rate 31; Glucose 104 mg/dL (65-105); Potassium 3.5 mmol/L (3.4-5.0); Sodium 139 mmol/L (137-145)
[2020-10-15 22:00] VITALS: BP 117/60; PULSE 83; RESP 20; TEMP 36.2; O2SAT 98
[2020-10-16 06:00] VITALS: BP 114/55; PULSE 72; RESP 20; TEMP 36.1; O2SAT 99
[2020-10-16] MEDS: LEVOTHYROXINE SODIUM 50 MCG TABLET PO (06:30)
[2020-10-16] MEDS: lisinopriL 20 MG TABLET PO (08:57)
[2020-10-16] MEDS: hydroCHLOROthiazide 12.5 MG CAPSULE PO (08:57)
[2020-10-16] MEDS: POTASSIUM CHLORIDE 20 MEQ PACKET (FOR LIQUID) PO (08:57)
[2020-10-16] MEDS: NITROFURANTOIN MONOHYD MACROCR 100 MG CAP PO (08:57)
[2020-10-16] MEDS: SODIUM CHLORIDE 0.9% IV 1,000 ML 75 ML IV CONT (09:43)
--- NOTE | 2020-10-16 12:14 | PM.DS ---
DS: Admitting Diagnosis Admitting Diagnosis Admitting Diagnosis: ABDOMINAL PAIN DS: Discharge Diagnosis Discharge Diagnosis (1) Pyelonephritis: Code(s): N12 - Tubulo-interstitial nephritis, not specified as acute or chronic Status: Acute Assessment and Plan: PT STARTED ON ROCEPHIN, Bc shows no growth, UC shows KLEBSIELLA sensitive to ciprofloxacin. DC patient on ciprofloxacin for 10 days and follow up with Urology in 2 weeks time (2) S/P ureteral stent placement: Code(s): Z96.0 - Presence of urogenital implants Status: Acute Assessment and Plan: PATIENT HAD STENTS PLACED 3-4 WEEKS AGO UROLOGY HAS BEEN CONSULTED OK TO DISCHARGE WITH FOLLOW UP (3) Bilateral ureteral obstruction: Code(s): N13.5 - Crossing vessel and stricture of ureter without hydronephrosis Status: Acute Assessment and Plan: STATUS RECENT POST STENT PLACEMENT (4) Hydronephrosis: Code(s): N13.30 - Unspecified hydronephrosis Status: Acute Assessment and Plan: STATUS RECENT POST STENT PLACEMENT (5) Intractable nausea and vomiting: Code(s): R11.2 - Nausea with vomiting, unspecified Status: Acute Assessment and Plan: SUPPORTIVE CARE (6) Hydroureter: Code(s): N13.4 - Hydroureter Status: Acute Assessment and Plan: STATUS RECENT POST STENT (7) Lymphedema: Code(s): I89.0 - Lymphedema, not elsewhere classified Status: Acute Assessment and Plan: CHRONIC LYMPHEDEMA (8) History of cervical cancer: Code(s): Z85.41 - Personal history of malignant neoplasm of cervix uteri Status: Acute Assessment and Plan: STATUS POST RADIATION (9) Hypertension: Code(s): I10 - Essential (primary) hypertension Status: Acute Assessment and Plan: RESTART HOME MEDS DS: Summary Hospital Course Hospital Course: 55-YEAR-OLD FEMALE WITH PAST MEDICAL HISTORY SIGNIFICANT FOR CERVICAL CA STATUS POST RADIATION A RESULT OF THESE PATIENT HAS HAD OBSTRUCTIVE UROPATHY OVER THE YEARS HAS REQUIRED MULTIPLE STENTS PLACEMENTS IN HER URETERS PATIENT ALSO HAS CHRONIC KIDNEY DISEASE, BILATERAL LOWER EXTREMITY CHRONIC LYMPHEDEMA. Pt admitted for pyelonephritis complains of slight dysuria feels much better, BC is negative UC has resulted pt is ok for discharge with follow up with urology. Time Spent with Patient Time attestation: Total time spent providing and/or coordinating discharge services:40 minutes on day of discharge Exam Const: General: ill appearing acutely Nutritional Appearance: average body habitus Orientation/consciousness: patient oriented x3 Eyes: Pupils: Equal, round and reactive pupils present Resp: Effort & Inspection: normal respiratory effort Auscultation: clear to auscultation bilaterally Cardio: Jugular venous distension: no JVD Rate: regular rate Rhythm: regular rhythm Heart sounds: S1 normal heart sound present and S2 normal heart sound present : General: Yes no CVA tenderness Back/Spine/Pelvis: Back: no CVA tenderness Skin: General skin exam: pallor Rashes: no rashes Wounds: no wounds Neuro: General: patient oriented x3 and CN's II-XI intact bilaterally Cranial nerves: Yes CN's II-XII intact bilaterally and Yes Equal, round and reactive pupils present Cognition (Neuro): normal cognition Speech: normal speech Gait exam (Neuro): Normal gait present Motor exam (neuro): 5/5 motor strength present throughout Sensory Exam: No Sensory deficit (Neuro) Extrem: General: normal to inspection, full ROM, no joint enlargement and no pedal edema DS: Data Data Completed and Pending Labs on day of discharge: Labs from last 24 hours 10/15/20 15:01 Sodium 139 Potassium 3.5 Chloride 105 Carbon Dioxide 28 Anion Gap 6 L BUN 30 H Creatinine 1.70 H Estim Creat Clear Calc 42 Estimated GFR 31 L Glucose 104 Calcium 8.6 Preliminary micro results at discharge
== END 2020-10-16 14:30 | disposition home or self-care (01) | DRG 690 ==
LOC: ANHED 21:34 → ANH2MED 10-16 12:14
PROVIDERS: Emergency Medicine; Admitting Provider Internal Medicine; Emergency Provider General Practice; PCP Family Medicine Sports Medicine; Referring Provider Urology; Visit Provider Family Medicine
DX: N13.6 Pyonephrosis (principal); Z68.41 Body mass index [BMI] 40.0-44.9, adult; B96.1 Klebsiella pneumoniae [K. pneumoniae] as the cause of diseases classified elsewhere; I12.9 Hypertensive chronic kidney disease with stage 1 through stage 4 chronic kidney disease, or unspecified chronic kidney disease; N18.9 Chronic kidney disease, unspecified; R11.2 Nausea with vomiting, unspecified; E66.01 Morbid (severe) obesity due to excess calories; E03.9 Hypothyroidism, unspecified; N39.0 Urinary tract infection, site not specified; I89.0 Lymphedema, not elsewhere classified; Z96.0 Presence of urogenital implants; Z85.41 Personal history of malignant neoplasm of cervix uteri; Z90.49 Acquired absence of other specified parts of digestive tract
CPT/HCPCS: 36415; 71046; 74018; 74176; 80048; 80053; 81001; 83605; 85025; 86140; 87040; 87077; 87086; 87088; 87186; 96361; 96365; 96375; 99285; A9270; J0696; J2405; J3370; J7030; J7120

== ENCOUNTER → 2020-11-25 12:30 | Outpatient (CLI) | payer OTHER, SELFPAY ==
--- NOTE | ~2020-11-25 | XR_ITS ---
EXAMINATION: XR abdomen/kub 1V EXAM DATE: 11/25/2020 12:54 INDICATION: Left ureteral obstruction. TECHNIQUE: Frontal projection(s) of the abdomen for interpretation. Comparison is made to prior exami nation from 10/13/2020. FINDINGS: Bilateral double-J ureteral stents, with the right stent proximal loop overlying ureterope lvic junction. Retroperitoneal surgical clips. Cholecystectomy clips. No suspicious soft tissue calci fications identified. There is a nonobstructive bowel gas pattern. 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 IMPRESSION: Ureteral stents, right side proximal loop now projecting over expected location of UPJ. Reviewed, dictated and finalized at location A.
== END ==
PROVIDERS: Visit Provider Urology
DX: N13.5 Crossing vessel and stricture of ureter without hydronephrosis (principal)
CPT/HCPCS: 74018

== ENCOUNTER 2021-03-13 08:01 | Outpatient (CLI) | payer OTHER, SELFPAY ==
--- NOTE | 2021-03-13 08:00 | ECG_ITS ---
Measurements Intervals [place] Rate: 87 P: 66 NH: 185 QRS: -39 QRSD: 127 T: 45 QT: 373 QTc: 451 Interpretive Statements SINUS RHYTHM LEFT AXIS DEVIATION INTRAVENTRICULAR CONDUCTION DELAY LEFT VENTRICULAR HYPERTROPHY POOR R WAVE PROGRESSION, ANTERIOR LEADS BORDERLINE ECG Electronically Signed On 03-13-2021 8:56:01 CDT by Shay Blair D.O.
[2021-03-13 08:44] LABS: Anion Gap 7 mmol/L (8-16); Blood Urea Nitrogen 27 mg/dL (7-17); Calcium 9.5 mg/dL (8.4-10.2); Carbon Dioxide 30 mmol/L (22-30); Chloride 105 mmol/L (98-107); Estimated Glomerular Filt Rate 29; Glucose 117 mg/dL (65-110); Potassium 3.7 mmol/L (3.4-5.0); Sodium 142 mmol/L (137-145)
== END 2021-03-13 08:02 | disposition home or self-care (01) ==
LOC: ANHSURGERY 08:06
PROVIDERS: Anesthesiology; PCP Family Medicine Sports Medicine; Visit Provider Urology
DX: Z01.818 Encounter for other preprocedural examination (principal); T50.2X5A Adverse effect of carbonic-anhydrase inhibitors, benzothiadiazides and other diuretics, initial encounter; I10 Essential (primary) hypertension; I45.9 Conduction disorder, unspecified
CPT/HCPCS: 36415; 80048; 93005

== ENCOUNTER 2021-03-19 06:53 | Day surgery (SDC) | payer OTHER, SELFPAY ==
[2021-03-10 13:06] VITALS: BMI 41.5
--- NOTE | 2021-03-13 15:29 | PM.HPGS ---
History of Present Illness History of Present Illness Consent: Risks, benefits, and alternatives have been discussed and questions answered. Patient agrees to proceed with procedure. 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 Made attempts at managing with ureteral dilatation without success and now a result to managing with intermittent ureteral stents. She presents today for bilateral stent placement. Review of Systems Cardiovascular: Cardiovascular: Denies chest pain, Denies lightheadedness, Denies palpitations and Denies dyspnea Respiratory: Respiratory: Denies dyspnea Gastrointestinal: Gastrointestinal: Denies diarrhea, Denies nausea and Denies vomiting Genitourinary: Genitourinary: Denies hematuria and Denies dysuria Endocrine: Endocrine: Denies palpitations PMFSH Past Medical History Medical History Chronic acquired lymphedema History of cervical cancer Treated with radiation therapy and chemotherapy with complications including chronic lymphedema, and ureteral stricture due to radiation Hypertension Hypothyroidism Morbid obesity Surgical History Surgical History History of section due to breech presentation History of cholecystectomy History of tonsillectomy Ureteral stricture, left status post resection with reimplantation of the ureter May 2016 Family History Family History Mother Breast cancer Cerebrovascular accident Diabetes mellitus Heart disease Father Cerebrovascular accident Social History Social History Social History: Primary care physician: Dr. 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 Gender identity (if verbalized by the patient): Female Sexual Orientation (if Verbalized by the Patient): Straight or Heterosexual Spiritual care concerns: No Meds Home Medications and Allergies Home Medications Medication Instructions Recorded Confirmed Type levothyroxine [Synthroid] 50 mcg PO DAILY 01/05/20 03/11/21 History Centrum Silver 1 tab-cap PO DAILY 03/11/21 03/11/21 History amlodipine 10 mg PO DAILY 03/11/21 03/11/21 History atorvastatin 10 mg PO DAILY 03/11/21 03/11/21 History cephalexin 250 mg PO DAILY 03/11/21 03/11/21 History hydrochlorothiazide 12.5 mg PO DAILY 03/11/21 03/11/21 History oxybutynin chloride 5 mg PO PRN PRN 03/11/21 03/11/21 History Allergies Allergy/AdvReac Type Severity Reaction Status Date / Time Sulfa (Sulfonamide AdvReac Intermediate NAUSEA Verified 03/10/21 13:03 Antibiotics) Exam Const: General: no acute distress Resp: Effort & Inspection: normal respiratory effort GI: Inspection: non-distended GI Palp: No abdominal tenderness and No Guarding due to palpation present (GI) Auscultation: normal bowel sounds Assessment and Plan Assessment and plan (1) Retroperitoneal fibrosis: Code(s): N13.5 - Crossing vessel and stricture of ureter without hydronephrosis Status: Acute Assessment and Plan: cystoscopy, bilateral ureteral retrograde pyelogram and bilateral ureteral stent exchange
[2021-03-19] VITALS (8 sets, daily range): BP systolic 129–152; BP diastolic 71–97; PULSE 76–109; RESP 8–16; TEMP 36.1–36.8; O2SAT 98–100
--- NOTE | ~2021-03-19 | XR_ITS ---
EXAMINATION: XR retrograde pyelo w/stent BI DATE: 03/19/2021 07:56 INDICATION: Bilateral stent exchange TECHNIQUE: Fluoroscopic images from a bilateral internal ureteral stent exchange are submitted for re view. 59 seconds of fluoroscopy time. 5 fluoroscopic images. FINDINGS: Comparison to 04/22/2020 and 09/19/2020 There are bilateral double-J internal ureteral stent projecting in expected position, with proximal C ope loop at the level of the renal pelvis and distal loop in the pelvis within the bladder lumen. IMPRESSION: 1. Bilateral internal ureteral stent exchange. Please refer to real-time procedural findings for de tails. Reviewed, dictated and finalized at location B. IMPRESSION: 1. Bilateral internal ureteral stent exchange. Please refer to real-time proc edural findings for details.
[2021-03-19] MEDS: LACTATED RINGERS 1,000 ML 30 ML IV CONT ×2 (06:30→07:56)
--- NOTE | 2021-03-19 06:40 | WPDHPUPDATE1 ---
History and Physical Update Update Date/Time: 03/19/21 06:40 History and Physical has been reviewed, including an updated exam of the patient. There are NO changes in the patient's condition. Risks, benefits, and alternatives have been discussed and questions answered. Patient agrees to proceed with procedure.
--- NOTE | 2021-03-19 07:08 | WPDANESEPPF ---
Anes - Initial Pre Proc Eval Procedure: Operation Date: 03/19/21 07:30 Proposed Procedures p Cystoscopy, Bilateral Stent Exchange - Karl Harden MD Date/Time: 03/19/21 07:08 Surgeon: Karl Harden MD Pre Op Diagnosis: ureteral obstruction Patient Data Age: 55 Gender: F Height: 1.65 m Weight: 113.4 kg Allergies Allergy/AdvReac Type Severity Reaction Status Date / Time Sulfa (Sulfonamide AdvReac Intermediate NAUSEA Verified 03/10/21 13:03 Antibiotics) Home Medications Medication Instructions Recorded Confirmed Type levothyroxine [Synthroid] 50 mcg PO DAILY 01/05/20 03/11/21 History Centrum Silver 1 tab-cap PO DAILY 03/11/21 03/11/21 History amlodipine 10 mg PO DAILY 03/11/21 03/11/21 History atorvastatin 10 mg PO DAILY 03/11/21 03/11/21 History cephalexin 250 mg PO DAILY 03/11/21 03/11/21 History hydrochlorothiazide 12.5 mg PO DAILY 03/11/21 03/11/21 History oxybutynin chloride 5 mg PO PRN PRN 03/11/21 03/11/21 History Patient hx anesthesia problems: none Family hx anesthesia problems: none Results Review: All pre-operative results and documents have been reviewed as part of the pre-operative evaluation. [facility] Past Medical History Medical History Chronic acquired lymphedema History of cervical cancer Treated with radiation therapy and chemotherapy with complications including chronic lymphedema, and ureteral stricture due to radiation Hypertension Hypothyroidism Morbid obesity Surgical History Surgical History History of section due to breech presentation History of cholecystectomy History of tonsillectomy Ureteral stricture, left status post resection with reimplantation of the ureter May 2016 Family History Family History Mother Breast cancer Cerebrovascular accident Diabetes mellitus Heart disease Father Cerebrovascular accident Social History Social History Social History: Primary care physician: Dr. Hooks Code status: Full code Smoking status: Never smoker Second hand tobacco smoke exposure: No Alcohol intake: current Drinks per week: 1 Alcohol use details: She drinks 1 alcoholic beverage a month on average. Substance use: never Substance use type: does not use Living arrangements: with family Additional living arrangements comments: She is andlives with her 19-year-old son. She also has a 29-year-old son. 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 Gender identity (if verbalized by the patient): Female Sexual Orientation (if Verbalized by the Patient): Straight or Heterosexual Spiritual care concerns: No Anes - Eval Final PreProcedure Day of Procedure 03/19/21 07:08 Patient weight: morbidly obese Heart: regular rate and rhythm Lungs: clear to auscultation Airway: Mallampati scale class II Neurological: alert and oriented Last oral intake: >/= 8 hours ASA classification: III Emergent: no Anesthetic plan: proceed Anesthesia type and monitoring: general LMA and standard monitoring Results Review: All pre-operative results and documents have been reviewed as part of the pre-operative evaluation. Informed Consent: The patient's anesthetic plan and its attendant risks and benefits were discussed with the patient/family/POA. Questions were solicited and answers provided to the satisfaction of the patient/family/POA.
[2021-03-19] MEDS: SCOPOLAMINE 1.5 MG PATCH TRANSDERM (07:13)
[2021-03-19] MEDS: ceFAZolin 2 GM/D5W 50 ML 2 GM/50 ML BAG IVPB (07:23)
[2021-03-19] MEDS: LIDOCAINE HCL 2% GEL UROJET 10 ML PKG MUCOUS MEM (07:34)
--- NOTE | 2021-03-19 07:51 | W.PM.PROC2 ---
Procedure Note - Detailed Date of Procedure 03/19/21 Pre-op Diagnosis Retroperitoneal fibrosis with bilateral hydronephrosis Post-op Diagnosis same Procedure Performed Cystoscopy to the bilateral retrograde pyelography and bilateral ureteral stent exchange Surgeon Karl Harden MD Anesthesia general Description of Procedure Patient is brought to the operative suite where she has prepped draped in routine sterile fashion while in a dorsal lithotomy position. Twenty-one F rigid cystoscope was placed in the bladder. Each stent is grasped and brought to the external urethral meatus. A 0.035 in glidewire was advanced through each stent into the renal pelvis. Retrograde pyelography is undertaken with an angiographic catheter to ensure appropriate positioning. New 6 F variable length bilateral ureteral stents were placed with the proximal coil in the renal pelvis and the distal coil in the bladder. Should be noted that her current stents had minimal encrustation at the 6 month interval. Scopes and wires removed she was taken recovery room good condition. Estimated Blood Loss 0 Drains Yes Packing No Pathology none sent Complications No immediate complications Condition stable Disposition PACU
== END 2021-03-19 09:32 | disposition home or self-care (01) ==
PROVIDERS: PCP Family Medicine Sports Medicine; Visit Provider Urology
PROC: (CPT 52352; principal; 2021-03-19 07:30)
DX: N13.39 Other hydronephrosis (principal); I10 Essential (primary) hypertension; E03.9 Hypothyroidism, unspecified; Z85.41 Personal history of malignant neoplasm of cervix uteri; Z92.21 Personal history of antineoplastic chemotherapy; Z92.3 Personal history of irradiation; E66.01 Morbid (severe) obesity due to excess calories; Z68.41 Body mass index [BMI] 40.0-44.9, adult
CPT/HCPCS: 52332; 74420; A9270; C1769; C1887; C2617; J0690; J1100; J2250; J2405; J2704; J3010; J7120; Q9966

== ENCOUNTER 2021-09-18 09:33 | Outpatient (CLI) | payer OTHER, SELFPAY ==
[2021-09-18 10:28] LABS: Anion Gap 4 mmol/L (8-16); Blood Urea Nitrogen 24 mg/dL (7-17); Calcium 9.2 mg/dL (8.4-10.2); Carbon Dioxide 32 mmol/L (22-30); Chloride 101 mmol/L (98-107); Estimated Glomerular Filt Rate 31; Glucose 113 mg/dL (65-110); Potassium 3.9 mmol/L (3.4-5.0); Sodium 137 mmol/L (137-145)
== END 2021-09-18 09:34 | disposition home or self-care (01) ==
LOC: ANHSURGERY 09:37
PROVIDERS: Anesthesiology; PCP Family Medicine Sports Medicine; Visit Provider Urology
DX: I10 Essential (primary) hypertension (principal); Z79.899 Other long term (current) drug therapy
CPT/HCPCS: 36415; 80048

== ENCOUNTER 2021-09-24 01:25 | Day surgery (SDC) | payer OTHER, SELFPAY ==
[2021-09-14 14:38] VITALS: BMI 41.6
--- NOTE | 2021-09-14 14:44 | PCDIET ---
Report to the Outpatient Waiting Room, entrance under the green pavilion located off [facility], at time _0600_ on date _[id number]_. OR Time: _0730_. - You and your visitor will be asked a series of questions to screen for COVID 19 for your protection. - A mask is required within the hospital. Preoperative COVID Testing Requirements: No COVID Test needed if: (proof is required; if not received patient will have Rapid Test prior to entry) - Patient has received COVID Vaccine at least 14 days prior to procedure date or - Patient has positive COVID test result within last 90 days of surgery date. COVID Test needed if above criteria is not met If not COVID vaccinated a COVID test must be conducted within 72 hours of surgery and patient is asked to isolate self from time of testing until procedure. You will go to the [facility] for your COVID testing. The [facility] Testing site is located at the corner of [address] [facility]. You will only be called if COVID results are positive and your surgeon may reschedule your elective surgery date. Patients may have clear liquids (water, carbonated beverages, clear teas, apple juice) until 3 hours prior to surgery with a maximum of 20 ounces. - No food from midnight until time of surgery - Infants may have breast milk until 4 hours before surgery, formula 6 hours prior to surgery. - Children will be allowed to drink immediately following surgery. If applicable, please bring a bottle or sippy cup to assist with drinking. Juice, water, soda, and popsicles are readily available. For infants on formula, please bring formula the day of surgery. Pacifiers are allowed. Take the following medications with a SIP of water the morning of surgery: ____Levothyroxine and Amlodipine Medications to discontinue per physician ___Multivitamin Date to take last xgvo___[id number]____ Please no make-up, nail vietnamese, hairspray, perfume, deodorant, or body powder the day of surgery. No jewelry (including any body piercings) or valuables the day of surgery, leave them at home. Please take a shower or bath the night before, or the morning of, surgery with an antibacterial soap. Wear comfortable, loose fitting clothing. Children are encouraged to wear pajamas. - Jewelry must be removed prior to entering the operating room. Rings and piercings that are not removed may be cut off. - The hospital will not accept responsibility for valuables. - Please leave all valuables, including medications, at home the day of surgery. If you are going home after surgery, a licensed special events driver must drive you home. - NO public transportation without another adult. - We recommend that an adult stay with you for 24 hours following discharge. - We also recommend that you do not drive, make important decision, drink alcoholic beverages, or take any drugs that were not prescribed by your health care provider for at least 24 hours after your discharge time. For Pediatric surgeries, we recommend two adults accompany the child home (only one inside the building at this time). One visitor will be allowed to accompany the patient into the hospital. Patients visitor will be instructed to remain with patient at all times or leave the building. We will allow the visitor to come back to the postoperative area when patient is ready. Follow any additional instructions given to you from your surgeon. Telephone instructions given to Patient___and asked if any additional questions and then verbalized understanding. Patient advised to call surgeon office or pre surgery nurse liaison [phone] if any additional questions.
--- NOTE | 2021-09-14 14:54 | PC.NURSE ---
Report to the Outpatient Waiting Room, entrance under the green pavilion located off [facility], at time _0600_ on date _09-24-21. OR Time: _0730_. - You and your visitor will be asked a series of questions to screen for COVID 19 for your protection. - A mask is required within the hospital. Preoperative COVID Testing Requirements: No COVID Test needed if: (proof is required; if not received patient will have Rapid Test prior to entry) - Patient has received COVID Vaccine at least 14 days prior to procedure date or - Patient has positive COVID test result within last 90 days of surgery date. COVID Test needed if above criteria is not met If not COVID vaccinated a COVID test must be conducted within 72 hours of surgery and patient is asked to isolate self from time of testing until procedure. You will go to the [facility] for your COVID testing. The [facility] Testing site is located at the corner of [address] [facility]. You will only be called if COVID results are positive and your surgeon may reschedule your elective surgery date. Patients may have clear liquids (water, carbonated beverages, clear teas, apple juice) until 3 hours prior to surgery with a maximum of 20 ounces. - No food from midnight until time of surgery - Infants may have breast milk until 4 hours before surgery, formula 6 hours prior to surgery. - Children will be allowed to drink immediately following surgery. If applicable, please bring a bottle or sippy cup to assist with drinking. Juice, water, soda, and popsicles are readily available. For infants on formula, please bring formula the day of surgery. Pacifiers are allowed. Take the following medications with a SIP of water the morning of surgery: Levotyroxine and Amlodipine Medications to discontinue per physician Multivitamin Date to take last oeig____[id number]____ Please no make-up, nail belgian, hairspray, perfume, deodorant, or body powder the day of surgery. No jewelry (including any body piercings) or valuables the day of surgery, leave them at home. Please take a shower or bath the night before, or the morning of, surgery with an antibacterial soap. Wear comfortable, loose fitting clothing. Children are encouraged to wear pajamas. - Jewelry must be removed prior to entering the operating room. Rings and piercings that are not removed may be cut off. - The hospital will not accept responsibility for valuables. - Please leave all valuables, including medications, at home the day of surgery. If you are going home after surgery, a licensed otr van cdl truck driver must drive you home. - NO public transportation without another adult. - We recommend that an adult stay with you for 24 hours following discharge. - We also recommend that you do not drive, make important decision, drink alcoholic beverages, or take any drugs that were not prescribed by your health care provider for at least 24 hours after your discharge time. For Pediatric surgeries, we recommend two adults accompany the child home (only one inside the building at this time). One visitor will be allowed to accompany the patient into the hospital. Patients visitor will be instructed to remain with patient at all times or leave the building. We will allow the visitor to come back to the postoperative area when patient is ready. Follow any additional instructions given to you from your surgeon. Telephone instructions given to ___Patient and asked if any additional questions and then verbalized understanding. Patient advised to call surgeon office or pre surgery nurse liaison [phone] if any additional questions.
--- NOTE | 2021-09-15 08:22 | PM.HPGS ---
History of Present Illness History of Present Illness Consent: Risks, benefits, and alternatives have been discussed and questions answered. Patient agrees to proceed with procedure. 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 this is managed with chronic indwelling ureteral stents which are changed periodically. Her last stents were changed in February 2021. She is aware the risk of this procedure including, but not limited to, urinary tract infection, ureteral injury, hematuria Review of Systems Cardiovascular: Cardiovascular: Denies chest pain, Denies lightheadedness, Denies palpitations and Denies dyspnea Respiratory: Respiratory: Denies dyspnea Gastrointestinal: Gastrointestinal: Denies diarrhea, Denies nausea and Denies vomiting Genitourinary: Genitourinary: Denies hematuria and Denies dysuria Endocrine: Endocrine: Denies palpitations PMF Past Medical History Medical History Chronic acquired lymphedema History of cervical cancer Treated with radiation therapy and chemotherapy with complications including chronic lymphedema, and ureteral stricture due to radiation Hypertension Hypothyroidism Morbid obesity Surgical History Surgical History History of section due to breech presentation History of cholecystectomy History of tonsillectomy Ureteral stricture, left status post resection with reimplantation of the ureter May 2016 Family History Family History Mother Breast cancer Cerebrovascular accident Diabetes mellitus Heart disease Father Cerebrovascular accident Social History Social History Social History: Primary care physician: Dr. Hooks Code status: Full code Smoking status: Never smoker Second hand tobacco smoke exposure: No Alcohol intake: current Drinks per week: 1 Alcohol use details: She drinks 1 alcoholic beverage a month on average. Substance use: never Substance use type: does not use Additional living arrangements comments: She is andlives with her 19-year-old son. She also has a 29-year-old son. 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 Gender identity (if verbalized by the patient): Female Sexual Orientation (if Verbalized by the Patient): Straight or Heterosexual Spiritual care concerns: No Meds Home Medications and Allergies Home Medications Medication Instructions Recorded Confirmed Type levothyroxine [Synthroid] 50 mcg PO DAILY 01/05/20 09/14/21 History Centrum Silver 1 tab-cap PO DAILY 03/11/21 09/14/21 History amlodipine 10 mg PO DAILY 03/11/21 09/14/21 History atorvastatin 10 mg PO DAILY 03/11/21 09/14/21 History cephalexin 250 mg PO HS 03/11/21 09/14/21 History hydrochlorothiazide 12.5 mg PO DAILY 03/11/21 09/14/21 History oxybutynin chloride 5 mg PO PRN PRN 03/11/21 09/14/21 History Allergies Allergy/AdvReac Type Severity Reaction Status Date / Time Sulfa (Sulfonamide AdvReac Intermediate NAUSEA Verified 09/14/21 14:36 Antibiotics) Exam Const: General: no acute distress Resp: Effort & Inspection: normal respiratory effort GI: Inspection: non-distended GI Palp: No abdominal tenderness and No Guarding due to palpation present (GI) Auscultation: normal bowel sounds Assessment and Plan Assessment and plan (1) Retroperitoneal fibrosis: Code(s): N13.5 - Crossing vessel and stricture of ureter without hydronephrosis Status: Acute (2) Bilateral ureteral obstruction: Code(
--- NOTE | 2021-09-23 11:27 | WPDANESEPPF ---
Anes - Initial Pre Proc Eval Procedure: Operation Date: 09/24/21 07:30 Proposed Procedures p Cystoscopy, Bilateral Retrograde Pyelogram, Bilateral Stent Exchange - Karl Harden MD Date/Time: 09/23/21 11:27 Surgeon: Karl Harden MD Pre Op Diagnosis: left ureteral obstruction, right ureteral stone Patient Data Age: 56 Gender: F Height: 1.65 m Weight: 113.6 kg Allergies Allergy/AdvReac Type Severity Reaction Status Date / Time Sulfa (Sulfonamide AdvReac Intermediate NAUSEA Verified 09/24/21 06:37 Antibiotics) Home Medications Medication Instructions Recorded Confirmed Type levothyroxine [Synthroid] 50 mcg PO DAILY 01/05/20 09/24/21 History Centrum Silver 1 tab-cap PO DAILY 03/11/21 09/24/21 History amlodipine 10 mg PO DAILY 03/11/21 09/24/21 History atorvastatin 10 mg PO DAILY 03/11/21 09/24/21 History cephalexin 250 mg PO HS 03/11/21 09/24/21 History hydrochlorothiazide 12.5 mg PO DAILY 03/11/21 09/24/21 History oxybutynin chloride 5 mg PO PRN PRN 03/11/21 09/24/21 History Patient hx anesthesia problems: none Family hx anesthesia problems: none Results Review: All pre-operative results and documents have been reviewed as part of the pre-operative evaluation. [facility] Past Medical History Medical History Chronic acquired lymphedema History of cervical cancer Treated with radiation therapy and chemotherapy with complications including chronic lymphedema, and ureteral stricture due to radiation Hypertension Hypothyroidism Morbid obesity Surgical History Surgical History History of section due to breech presentation History of cholecystectomy History of tonsillectomy Ureteral stricture, left status post resection with reimplantation of the ureter May 2016 Family History Family History Mother Breast cancer Cerebrovascular accident Diabetes mellitus Heart disease Father Cerebrovascular accident Social History Social History Social History: Primary care physician: Dr. Hooks Code status: Full code Smoking status: Never smoker Second hand tobacco smoke exposure: No Alcohol intake: current Drinks per week: 1 Alcohol use details: She drinks 1 alcoholic beverage a month on average. Substance use: never Substance use type: does not use Living arrangements: alone Additional living arrangements comments: She is andlives with her 19-year-old son. She also has a 29-year-old son. 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 Gender identity (if verbalized by the patient): Female Sexual Orientation (if Verbalized by the Patient): Straight or Heterosexual Spiritual care concerns: No Anes - Eval Final PreProcedure Day of Procedure 09/23/21 11:27 Patient weight: morbidly obese Heart: regular rate and rhythm Lungs: clear to auscultation and normal air movement Airway: Mallampati scale class II Neurological: alert and oriented Last oral intake: >/= 8 hours ASA classification: III Emergent: no Anesthetic plan: proceed Anesthesia type and monitoring: general LMA and standard monitoring Results Review: All pre-operative results and documents have been reviewed as part of the pre-operative evaluation. Informed Consent: The patient's anesthetic plan and its attendant risks and benefits were discussed with the patient/family/POA. Questions were solicited and answers provided to the satisfaction of the patient/family/POA.
[2021-09-24] VITALS (8 sets, daily range): BP systolic 132–181; BP diastolic 72–92; PULSE 79–91; RESP 14–20; TEMP 36.6–36.9; O2SAT 99–100
--- NOTE | ~2021-09-24 | XR_ITS ---
EXAMINATION: XR retrograde pyelo w/stent BI DATE: 09/24/2021 08:16 INDICATION: Bilateral retrograde pyelograms and stent placement TECHNIQUE: 71 fluoroscopic images of the abdomen and pelvis were obtained during procedure performed by Dr. Harden. Radiologist was not present for the imaging or procedure. The amount of fluoroscopy ti me used during this procedure was 1.4 minutes. COMPARISON: 03/19/2021 FINDINGS: Stock Control Supervisor images demonstrate a pair of bilateral internal ureteral stents in expected position. Subsequen t images demonstrate retrograde contrast injection into both stents with opacification of the bilater al renal collecting systems demonstrate severe bilateral hydronephrosis. Final images demonstrate a c ouple presumably new bilateral internal ureteral stents beginning in expected positions with loops fo rmed at the bilateral renal pelvises sees and in the bladder. Cholecystectomy clips are seen in the r ight upper quadrant. There are a pair of additional surgical clips in the central pelvis. IMPRESSION: 1. Bilateral internal ureteral stents in expected position presumably post stent exchange with severe residual bilateral hydronephrosis. See procedure note for further detail. Reviewed, dictated and finalized at location B. IMPRESSION: 1. Bilateral internal ureteral stents in expected position presumably post sten t exchange with severe residual bilateral hydronephrosis. See procedure note fo r further detail.
--- NOTE | 2021-09-24 06:39 | WPDHPUPDATE1 ---
History and Physical Update Update Date/Time: 09/24/21 06:39 History and Physical has been reviewed, including an updated exam of the patient. There are NO changes in the patient's condition. Risks, benefits, and alternatives have been discussed and questions answered. Patient agrees to proceed with procedure.
[2021-09-24] MEDS: LACTATED RINGERS 1,000 ML 30 ML IV CONT (06:59)
[2021-09-24] MEDS: SCOPOLAMINE 1.5 MG PATCH TRANSDERM (07:22)
[2021-09-24] MEDS: ceFAZolin 3 GM/D5W 100 ML 100 ML IVPB (07:40)
[2021-09-24] MEDS: LIDOCAINE HCL 2% GEL UROJET 10 ML PKG MUCOUS MEM (07:59)
--- NOTE | 2021-09-24 08:13 | P.OP_ITS ---
Procedure Note - Detailed Date of Procedure 09/24/21 Pre-op Diagnosis Bilateral ureteral obstruction secondary to retroperitoneal fibrosis Post-op Diagnosis Same Procedure Performed Cystoscopy, bilateral ureteral stent removal, bilateral retrograde pyelography and ureteral stent replaced Surgeon Karl Harden MD Anesthesia General Description of Procedure Patient is brought to the operative suite where she has prepped draped in routine sterile fashion while in a dorsal lithotomy position. Twenty-one F r igid cystoscope was placed in the bladder. Each stent is grasped and brought to the external urethral meatus. A 0.035 in glidewire was advanced through each stent into the renal pelvis. Retrograde pyelography is undertaken with an angiographic catheter to insure appropriate positioning. New 6F variable length bilateral ureteral stents were placed with the proximal coil in the renal pelvis and the distal coil in the bladder. It should be noted that her current stents had minimal encrustation at the 6 month interval. Scopes and wires removed she was taken recovery room good condition. Drains Yes Packing No Pathology None sent Complications No immediate complications Condition Stable Disposition PACU
--- NOTE | 2021-09-24 08:45 | SUR.PHASEI ---
0845: simple mask removed.
== END 2021-09-24 09:43 | disposition home or self-care (01) ==
PROVIDERS: PCP Family Medicine Sports Medicine; Visit Provider Urology
PROC: (CPT 52352; principal; 2021-09-24 07:30)
DX: N13.1 Hydronephrosis with ureteral stricture, not elsewhere classified (principal); I10 Essential (primary) hypertension; E03.9 Hypothyroidism, unspecified; Z85.41 Personal history of malignant neoplasm of cervix uteri; Z92.3 Personal history of irradiation; Z92.21 Personal history of antineoplastic chemotherapy; E66.01 Morbid (severe) obesity due to excess calories; Z68.41 Body mass index [BMI] 40.0-44.9, adult
CPT/HCPCS: 52332; 74420; A9270; C1769; C1887; C2617; J0690; J1100; J2250; J2405; J2704; J3010; J7120; Q9966

== ENCOUNTER 2022-03-30 08:31 | Outpatient (CLI) | payer OTHER, SELFPAY ==
--- NOTE | 2022-03-30 08:45 | ECG_ITS ---
Measurements Intervals [place] Rate: 76 P: 63 NH: 182 QRS: -40 QRSD: 129 T: 35 QT: 402 QTc: 454 Interpretive Statements SINUS RHYTHM LEFT AXIS DEVIATION POSSIBLE LEFT ATRIAL ENLARGEMENT INTRAVENTRICULAR CONDUCTION DELAY POSSIBLE LEFT VENTRICULAR HYPERTROPHY CANNOT RULE OUT SEPTAL INFARCT, AGE INDETERMINATE BASELINE ARTIFACT- I, II, III, AVR, AVL, AVF ABNORMAL ECG COMPARED TO ECG 03/13/2021 08:23:37 NO SIGNIFICANT CHANGES Electronically Signed On 03-30-2022 9:13:30 CDT by Shay Blair D.O.
[2022-03-30 10:33] LABS: Anion Gap 11 mmol/L (8-16); Blood Urea Nitrogen 23 mg/dL (7-17); Calcium 9.2 mg/dL (8.4-10.2); Carbon Dioxide 28 mmol/L (22-30); Chloride 104 mmol/L (98-107); Estimated Glomerular Filt Rate 33; Glucose 101 mg/dL (65-110); Potassium 3.5 mmol/L (3.4-5.0); Sodium 143 mmol/L (137-145)
== END 2022-03-30 08:32 | disposition home or self-care (01) ==
LOC: ANHSURGERY 08:34
PROVIDERS: Anesthesiology; PCP Family Medicine Sports Medicine; Visit Provider Urology
DX: I10 Essential (primary) hypertension (principal); Z01.818 Encounter for other preprocedural examination; I45.9 Conduction disorder, unspecified
CPT/HCPCS: 36415; 80048; 93005

== ENCOUNTER 2022-04-01 01:30 | Day surgery (SDC) | payer OTHER, SELFPAY ==
--- NOTE | 2022-03-24 09:41 | PM.HPGS ---
History of Present Illness History of Present Illness Consent: Risks, benefits, and alternatives have been discussed and questions answered. Patient agrees to proceed with procedure. 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 In the remote past she underwent a left ureteral reimplantation but obstruction has reoccurred. We now manage this with bilateral ureteral indwelling stents that are changed periodically. Review of Systems Cardiovascular: Cardiovascular: Denies chest pain, Denies lightheadedness, Denies palpitations and Denies dyspnea Respiratory: Respiratory: Denies dyspnea Gastrointestinal: Gastrointestinal: Denies diarrhea, Denies nausea and Denies vomiting Genitourinary: Genitourinary: Denies hematuria and Denies dysuria Endocrine: Endocrine: Denies palpitations PMFSH Past Medical History Medical History Chronic acquired lymphedema History of cervical cancer Treated with radiation therapy and chemotherapy with complications including chronic lymphedema, and ureteral stricture due to radiation Hypertension Hypothyroidism Morbid obesity Surgical History Surgical History History of section due to breech presentation History of cholecystectomy History of tonsillectomy Ureteral stricture, left status post resection with reimplantation of the ureter May 2016 Family History Family History Mother Breast cancer Cerebrovascular accident Diabetes mellitus Heart disease Father Cerebrovascular accident Social History Social History Social History: Primary care physician: Dr. Hooks Code status: Full code Smoking status: Never smoker Second hand tobacco smoke exposure: No Alcohol intake: current Drinks per week: 1 Alcohol use details: She drinks 1 alcoholic beverage a month on average. Substance use: never Substance use type: does not use Additional living arrangements comments: She is andlives with her 19-year-old son. She also has a 29-year-old son. 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 Gender identity (if verbalized by the patient): Female Sexual Orientation (if Verbalized by the Patient): Straight or Heterosexual Spiritual care concerns: No Meds Home Medications and Allergies Home Medications Medication Instructions Recorded Confirmed Type levothyroxine 50 mcg tablet 50 mcg PO DAILY 01/05/20 09/24/21 History (Synthroid) Centrum Silver 1 tab-cap PO DAILY 03/11/21 09/24/21 History amlodipine 10 mg tablet 10 mg PO DAILY 03/11/21 09/24/21 History atorvastatin 10 mg tablet 10 mg PO DAILY 03/11/21 09/24/21 History cephalexin 250 mg capsule 250 mg PO HS 03/11/21 09/24/21 History hydrochlorothiazide 12.5 mg tablet 12.5 mg PO DAILY 03/11/21 09/24/21 History oxybutynin chloride 5 mg tablet 5 mg PO PRN PRN Bladder Spasms 03/11/21 09/24/21 History cephalexin 500 mg capsule 500 mg PO Q8H #9 caps 09/24/21 Rx hydrocodone 5 mg-acetaminophen 325 1 - 2 tablet PO Q6H PRN pain #20 09/24/21 Rx mg tablet tabs Allergies Allergy/AdvReac Type Severity Reaction Status Date / Time Sulfa (Sulfonamide AdvReac Intermediate NAUSEA Verified 09/24/21 06:37 Antibiotics) Exam Const: General: no acute distress Resp: Effort & Inspection: normal respiratory effort GI: Inspection: non-distended GI Palp: No abdominal tenderness and No Guarding due to palpation present (GI) Auscultation: normal bowel sounds Assessment and Plan Assessment and plan (1) Retroperitoneal
[2022-03-26 08:33] VITALS: BMI 40.8
--- NOTE | 2022-03-26 08:37 | PC.NURSE ---
Report to the Outpatient Waiting Room, entrance under the green pavilion located off [facility], at time 6:00 on date 04/01/22. Planned Procedure Time: 7:30. Time changes happen often and if your time is changed the preop area will call you the afternoon before. - You and your visitor will be asked to self-screen and do not enter if you have any COVID symptoms. - We encourage only one visitor and NO visitors under age 16 are allowed at this time. Your visitor will receive communication by the phone number that is given day of service. - The patient visitor is requested to social distance or may leave the building when not with patient due to restrictions. - A mask is OPTIONAL within the hospital. Patients may have clear liquids (water, carbonated beverages, clear teas, apple juice) until 3 hours prior to surgery (4:30) with a maximum of 20 ounces. - No food from midnight until time of surgery Take the following medications with a SIP of water the morning of surgery: AMLODIPINE, LEVOTHYROXINE Medications to discontinue per physician: VITAMIN Date to take last dose: 03/28/22 Please no make-up, nail kazakh, hairspray, perfume, deodorant, or body powder the day of surgery. No jewelry (including any body piercings) or valuables the day of surgery, leave them at home. Please take a shower or bath the night before, or the morning of, surgery with an antibacterial soap. Wear comfortable, loose fitting clothing. - Jewelry must be removed prior to entering the operating room. Rings and piercings that are not removed may be cut off. - The hospital will not accept responsibility for valuables. - Please leave all valuables, including medications, at home the day of surgery. If you are going home after surgery, a licensed bulk tank driver must drive you home. - NO public transportation without another adult. - We recommend that an adult stay with you for 24 hours following discharge. - We also recommend that you do not drive, make important decision, drink alcoholic beverages, or take any drugs that were not prescribed by your health care provider for at least 24 hours after your discharge time. Follow any additional instructions given to you from your surgeon. If you or anyone in your household have experienced Covid symptoms in the past week, please notify your surgeon or the nurse liaison at the phone number below for possible testing. Telephone instructions given to PT - MARITZA TUBBS and asked if any additional questions and then verbalized understanding. Patient advised to call surgeon office or pre surgery nurse liaison [phone] if any additional questions.
[2022-04-01] VITALS (7 sets, daily range): BP systolic 83–150; BP diastolic 51–81; PULSE 70–88; RESP 14–16; TEMP 36.1–36.9; O2SAT 93–98
--- NOTE | ~2022-04-01 | XR_ITS ---
EXAMINATION: XR stent kub - surgery DATE: 04/01/2022 07:58 INDICATION: Bilateral internal ureteral stent exchange TECHNIQUE: Fluoroscopic images from a bilateral internal ureteral stent exchange are submitted for re view. 31 seconds of fluoroscopy time. FINDINGS: There are bilateral double-J internal ureteral stent projecting in expected position, with proximal C ope loop at the level of the renal pelvis and distal loop in the pelvis within the bladder lumen. IMPRESSION: 1. Bilateral internal ureteral stent exchange. Please refer to real-time procedural findings for de tails. Reviewed, dictated and finalized at location A. IMPRESSION: 1. Bilateral internal ureteral stent exchange. Please refer to real-time proc edural findings for details.
[2022-04-01] MEDS: LACTATED RINGERS 1,000 ML 30 ML IV CONT ×2 (06:45→08:00)
--- NOTE | 2022-04-01 07:09 | WPDANESEPPF ---
Anes - Initial Pre Proc Eval Procedure: Operation Date: 04/01/22 07:30 Proposed Procedures p Cystoscopy, Bilateral Ureteral Stent Removal, Bilateral Retrograde Pyelography, Bilateral Ureteral Stent Replacement - Karl Harden MD Date/Time: 04/01/22 07:09 Surgeon: Karl Harden MD Pre Op Diagnosis: retroperitoneal fibrosis Patient Data Age: 56 Gender: F Height: 1.65 m Weight: 111.5 kg Allergies Allergy/AdvReac Type Severity Reaction Status Date / Time Sulfa (Sulfonamide AdvReac Intermediate NAUSEA Verified 03/26/22 08:31 Antibiotics) Home Medications Medication Instructions Recorded Confirmed Type levothyroxine 50 mcg tablet 50 mcg PO DAILY 01/05/20 03/26/22 History (Synthroid) Centrum Silver 1 tab-cap PO DAILY 03/11/21 03/26/22 History amlodipine 10 mg tablet 10 mg PO DAILY 03/11/21 03/26/22 History atorvastatin 10 mg tablet 10 mg PO DAILY 03/11/21 03/26/22 History cephalexin 250 mg capsule 250 mg PO HS 03/11/21 03/26/22 History hydrochlorothiazide 12.5 mg tablet 12.5 mg PO DAILY 03/11/21 03/26/22 History Patient hx anesthesia problems: none Family hx anesthesia problems: none Results Review: All pre-operative results and documents have been reviewed as part of the pre-operative evaluation. [facility] Past Medical History Medical History Chronic acquired lymphedema History of cervical cancer Treated with radiation therapy and chemotherapy with complications including chronic lymphedema, and ureteral stricture due to radiation Hypertension Hypothyroidism Morbid obesity Surgical History Surgical History History of section due to breech presentation History of cholecystectomy History of tonsillectomy Ureteral stricture, left status post resection with reimplantation of the ureter May 2016 Family History Family History Mother Breast cancer Cerebrovascular accident Diabetes mellitus Heart disease Father Cerebrovascular accident Social History Social History Social History: Primary care physician: Dr. Hooks Code status: Full code Smoking status: Never smoker Second hand tobacco smoke exposure: No Alcohol intake: current Drinks per week: 1 Alcohol use details: She drinks 1 alcoholic beverage a month on average. Substance use: never Substance use type: does not use Living arrangements: with family Additional living arrangements comments: She is andlives with her 19-year-old son. She also has a 29-year-old son. 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 Gender identity (if verbalized by the patient): Female Sexual Orientation (if Verbalized by the Patient): Straight or Heterosexual Spiritual care concerns: No Anes - Eval Final PreProcedure Day of Procedure 04/01/22 07:09 Patient weight: morbidly obese Heart: regular rate and rhythm Lungs: clear to auscultation Airway: Mallampati scale class II Neurological: alert and oriented Last oral intake: >/= 8 hours ASA classification: III Emergent: no Anesthetic plan: proceed Anesthesia type and monitoring: general LMA and standard monitoring Results Review: All pre-operative results and documents have been reviewed as part of the pre-operative evaluation. Informed Consent: The patient's anesthetic plan and its attendant risks and benefits were discussed with the patient/family/POA. Questions were solicited and answers provided to the satisfaction of the patient/family/POA.
--- NOTE | 2022-04-01 07:13 | WPDHPUPDATE1 ---
History and Physical Update Update Date/Time: 04/01/22 07:13 History and Physical has been reviewed, including an updated exam of the patient. There are NO changes in the patient's condition. Risks, benefits, and alternatives have been discussed and questions answered. Patient agrees to proceed with procedure.
[2022-04-01] MEDS: SCOPOLAMINE 1.5 MG PATCH TRANSDERM (07:15)
[2022-04-01] MEDS: ceFAZolin 2 GM/D5W 50 ML 2 GM/50 ML BAG IVPB (07:32)
[2022-04-01] MEDS: LIDOCAINE HCL 2% GEL UROJET 10 ML PKG MUCOUS MEM (07:45)
--- NOTE | 2022-04-01 07:57 | W.PM.PROC2 ---
Procedure Note - Detailed Date of Procedure 04/01/22 Pre-op Diagnosis Retroperitoneal fibrosis with bilateral ureteral obstruction Post-op Diagnosis Same Procedure Performed Cystoscopy, bilateral ureteral stent exchange Surgeon Karl Harden MD Anesthesia General Description of Procedure Patient is brought to the operative suite where she has prepped draped in routine sterile fashion while in a dorsal lithotomy position.? Twenty-one F rigid cystoscope was placed in the bladder.? Each stent is grasped and brought to the external urethral meatus.? A 0.035 in glidewire was advanced through each stent into the renal pelvis.? Retrograde pyelography is undertaken with an angiographic catheter to insure appropriate positioning.? New 6F variable length bilateral ureteral stents were placed with the proximal coil in the renal pelvis and the distal coil in the bladder.? It should be noted that her current stents had minimal encrustation at the 6 month interval.? Scopes and wires removed she was taken recovery room good condition. Drains Yes Packing No Pathology Yes Complications No immediate complications Condition Stable Disposition PACU
--- NOTE | 2022-04-01 07:59 | SUR.OPER ---
6f stents bilateral ureters
== END 2022-04-01 09:40 | disposition home or self-care (01) ==
PROVIDERS: PCP Family Medicine Sports Medicine; Visit Provider Urology
PROC: (CPT 52352; principal; 2022-04-01 07:30)
DX: N13.5 Crossing vessel and stricture of ureter without hydronephrosis (principal); I10 Essential (primary) hypertension; E03.9 Hypothyroidism, unspecified; Z85.41 Personal history of malignant neoplasm of cervix uteri; Z92.3 Personal history of irradiation; Z92.21 Personal history of antineoplastic chemotherapy; E66.01 Morbid (severe) obesity due to excess calories; Z68.41 Body mass index [BMI] 40.0-44.9, adult
CPT/HCPCS: 52332; A9270; C1769; C2617; J0690; J1100; J2250; J2370; J2405; J2704; J3010; J7120

== ENCOUNTER 2022-10-24 09:24 | Emergency (ER) | payer OTHER, SELFPAY ==
[2022-10-24] VITALS (31 sets, daily range): BP systolic 134–161; BP diastolic 67–89; PULSE 73–97; RESP 11–21; TEMP 36.6; O2SAT 91–100
--- NOTE | ~2022-10-24 | CT_ITS ---
EXAMINATION: CT abdomen pelvis w con DATE: 10/24/2022 10:58 INDICATION: Right-sided abdominal pain. Right flank pain. Nausea. TECHNIQUE: Computed tomography (CT) of the abdomen and pelvis was performed with 100 mL Omnipaque 350 intravenous contrast. Automated exposure control and iterative reconstruction technique were employe d. The dose-length product was 1233.92 mGy-cm. COMPARISON: CT abdomen and pelvis 10/13/2020 FINDINGS: The visualized portions of the lung bases demonstrate mild atelectasis. No pleural effusion . The heart size is normal. No pericardial effusion. There is a 5.2 cm cyst in the liver. There are c hanges of cholecystectomy. The spleen is normal. A punctate calcification in the pancreas may be from chronic pancreatitis. The adrenal glands are normal. There is cortical thinning of the kidneys. Ther e is a 4 mm stone in right kidney. There is a 1.4 cm cyst in right kidney. There is severe right hydr onephrosis and proximal hydroureter. There is a right internal ureteral stent in expected position. T here are cysts in left kidney measuring up to 6 mm. There is severe left hydronephrosis and proximal hydroureter. There is asymmetric edema in right perinephric space. There is urothelial thickening inv olving left renal pelvis and left ureter with surrounding fat stranding. There is a left internal ure teral stent in expected position. There are greater than 10 stones in left kidney predominantly in cl usters with the largest stone measuring 3 mm. There is an umbilical hernia containing fat. There is d iverticulosis of the colon without evidence of diverticulitis. The appendix is normal. There are no d ilated loops of bowel. There are no pathologically enlarged lymph nodes. There is no free intraperito daina fluid. There is severe osteoarthritis of the hips. There is moderate lower lumbar spondylosis. IMPRESSION: 1. Severe bilateral hydronephrosis and proximal hydroureter with bilateral internal ureteral stents i n expected position. Mild atrophy of the kidneys. Left-sided pyelitis. 2. Bilateral nonobstructing kidney stones. Reviewed, dictated and finalized at location A. IMPRESSION: 1. Severe bilateral hydronephrosis and proximal hydroureter with bilateral inte rnal ureteral stents in expected position. Mild atrophy of the kidneys. Left-si ded pyelitis. 2. Bilateral nonobstructing kidney stones.
--- NOTE | ~2022-10-24 | US_ITS ---
EXAMINATION: US soft tissue head and neck DATE: 10/24/2022 15:02 INDICATION: Surgical wound erythema at the inferior right neck/supraclavicular region TECHNIQUE: Multiple grayscale and Doppler ultrasound images of the region of concern at the supraclav icular regions and base of the right neck were obtained. COMPARISON: None FINDINGS: There is posterior acoustic shadowing superficial to the right supraclavicular region likely represen ting a reported site of surgical incision. The underlying subcutaneous fat and musculature are otherw ise unremarkable with no abscess or other abnormal fluid collections. No pathologically enlarged lymp hadenopathy or other mass identified in the region of concern. IMPRESSION: 1. No abscess, hematoma or other abnormal fluid collections or masses in the right supraclavicular re gion of concern deep to a surgical wound. Reviewed, dictated and finalized at location A. IMPRESSION: 1. No abscess, hematoma or other abnormal fluid collections or masses in the formerly [facility] supraclavicular region of concern deep to a surgical wound.
--- NOTE | 2022-10-24 09:33 | ED.ABDPAIN ---
HPI - Abdominal Pain General Chief Complaint: Abdominal Pain Stated Complaint: rt side pain Time Seen by Provider: 10/24/22 09:33 Source: patient Mode of arrival: ambulatory Limitations: no limitations History of Present Illness HPI narrative: 57 years old white female presented to the ED with right-sided abdominal pain that started at 6:30 PM last night. She denies any fever, chills, vomiting. Patient reported severe nausea. Patient have history of bilateral ureteral stents and supposed to change them every 6 months, she was due August 2022, could not do it because of lymphedema surgery which was done on October 04, [address] Goyal at [facility]. Patient reports that the drain was removed from the right lower extremity and right chest few days ago and everything was okay. Related Data Home Medications Medication Instructions Recorded Confirmed levothyroxine 50 mcg tablet 50 mcg PO DAILY 01/05/20 04/01/22 (Synthroid) Centrum Silver 1 tab-cap PO DAILY 03/11/21 03/26/22 amlodipine 10 mg tablet 10 mg PO DAILY 03/11/21 04/01/22 atorvastatin 10 mg tablet 10 mg PO DAILY 03/11/21 03/26/22 cephalexin 250 mg capsule 250 mg PO HS 03/11/21 03/26/22 hydrochlorothiazide 12.5 mg tablet 12.5 mg PO DAILY 03/11/21 03/26/22 Allergies Allergy/AdvReac Type Severity Reaction Status Date / Time Sulfa (Sulfonamide AdvReac Intermediate NAUSEA Verified 10/24/22 13:09 Antibiotics) Review of Systems Review of Systems: All systems reviewed & are unremarkable except as noted in HPI and below PMFSH Past Medical History Medical History (Updated 10/24/22 @ 16:05 by Priyanka Kiran MD) Chronic acquired lymphedema History of cervical cancer Treated with radiation therapy and chemotherapy with complications including chronic lymphedema, and ureteral stricture due to radiation Hypertension Hypothyroidism Lymph node disorder has had lymph nodes removed from upper chest and placed to right lower extremity . lva Morbid obesity Surgical History Surgical History (Updated 10/24/22 @ 15:18 by Debra Santiago NP) History of section due to breech presentation History of cholecystectomy History of renal stent History of tonsillectomy Ureteral stricture, left status post resection with reimplantation of the ureter May 2016 Family History Family History Mother Breast cancer Cerebrovascular accident Diabetes mellitus Heart disease Father Cerebrovascular accident Social History Social History (Updated 10/24/22 @ 15:27 by Debra Santiago NP) Social History: . works at [employer]. Has 2 children. children Primary care physician: Dr. 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 Gender identity (if verbalized by the patient): Female Sexual Orientation (if Verbalized by the Patient): Straight or Heterosexual Spiritual care concerns: No Exam Narrative: General appearance: Well-developed, well-nourished Skin: Normal color right lower extremity was wrapped with Cob[place], surgical scar looks dry and clean at the thigh and lower leg. Surgical scar at the right upper chest is tender, erythematous, no discharge. Head: Normocephalic, nontraumatic Eyes: Clear conjunctiva ENT: Oropharynx normal, ears normal, nose normal Neck: Supple, nontender Chest and respiratory: Airway patent, no respiratory distress, no accessory muscle use Heart: Regular rate/rhythm Abdomen: Soft, moderate te
[2022-10-24 09:58] LABS: Basophils Absolute Auto 0.1 K/mm3 (0.0-0.1); Basophils Percent Auto 0.5 % (0.2-1.2); Eosinophils Absolute Auto 0.2 K/mm3 (0-0.3); Eosinophils Percent Auto 2.1 % (0-4.4); Hematocrit 43.3 % (37.0-47.0); Hemoglobin 13.9 g/dL (12.0-15.0); Immature Granulocyte Absolute 0.05 K/mm3 (0.00-0.031); Immature Granulocyte Percent A 0.5 % (0-0.5); Lymphocytes Absolute Auto 1.39 K/mm3 (0.9-3.2); Lymphocytes Percent Auto 12.6 % (18.3-44.2); Mean Corpuscular HGB Conc 32.1 g/dl (32-36); Mean Corpuscular Hemoglobin 28.4 pg (26-34); Mean Corpuscular Volume 88.5 fl (80-100); Mean Platelet Volume 9.9 fl (7.4-10.4); Monocytes Absolute Auto 1.1 K/mm3 (0.1-0.6); Monocytes Percent Auto 10.1 % (2.6-8.5); Neutrophils Absolute Auto 8.2 K/mm3 (1.3-6.7); Neutrophils Percent Auto 74.2 % (45.5-73.1); Platelet Count Result 307 k/mm3 (150-375); Red Blood Count 4.89 M/mm3 (4.2-5.4); Red Cell Distribution Width 13.8 % (11.5-14.5); White Blood Count 11.1 K/mm3 (4.5-10.0)
[2022-10-24] MEDS: SODIUM CHLORIDE 0.9% IV 1,000 ML 999 ML IV CONT (10:28)
[2022-10-24] MEDS: ONDANSETRON INJ 4 MG/2 ML VIAL IV PUSH ×2 (10:28→13:02)
[2022-10-24] MEDS: HYDROmorphone HCL INJ (*CRX) 1 MG/ML SYR 0.5 MG IV PUSH ×2 (10:29→13:02)
[2022-10-24 10:30] LABS: Alanine Aminotransferase 22 U/L (6-35); Alkaline Phosphatase 108 U/L (38-126); Anion Gap 6 mmol/L (8-16); Aspartate Amino Transferase 25 U/L (14-36); Bilirubin,Total 0.7 mg/dL (0.2-1.3); Blood Urea Nitrogen 25 mg/dL (7-17); Calcium 8.9 mg/dL (8.4-10.2); Carbon Dioxide 29 mmol/L (22-30); Chloride 102 mmol/L (98-107); Estimated CRCL calculation 41 ml/min; Estimated Glomerular Filt Rate 31; Glucose 116 mg/dL (65-110); Lipase 92 U/L (23-300); Potassium 3.7 mmol/L (3.4-5.0); Sodium 137 mmol/L (137-145)
--- NOTE | 2022-10-24 10:49 | PC.NURSE ---
Patient off unit to CT.
[2022-10-24 10:56] LABS: Appearance Urine Cloudy (Clear); Bacteria Urine None Seen /hpf; Bilirubin Urine Negative (Negative); Blood Urine 3+ (Negative); Color Urine Yellow (Yellow); Glucose Urine UA Negative (Negative); Ketones Urine Negative (Negative); Leukocyte Esterase Ur 2+ LEU/UL (Negative); Nitrate Urine Negative (Negative); Protein Urine 1+ mg/dL (Negative); RBC Urine >100 /hpf (0-2); Specific Grav Ur 1.014 (1.001-1.035); Squamous Epithelial Cell Urine Occasional /hpf (Few); Urobilinogen Urine 0.2 mg/dL (<2.0); WBC Urine 21-50 /hpf; pH Urine 5.5 (5.0-9.0)
--- NOTE | 2022-10-24 11:01 | PC.NURSE ---
Patient report given to MAGGI Wetzel. All questions answered and care of patient transferred.
[2022-10-24 11:07] LABS: Add Urine Microscopic? YES
[2022-10-24] MEDS: VANCOMYCIN 1,250 MG/NS 250 ML 1,250 MG/250 ML BAG 166.67 MG IVPB (13:35)
[2022-10-24] MEDS: diphenhydrAMINE HCl INJ 50 MG/ML VIAL IV PUSH (15:10)
--- NOTE | 2022-10-24 15:16 | PC.NURSE ---
Patient began complaining of itching after the first infusion of vanc. provider made aware and verbal order for benadryl was ordered. benadryl given and second bag of vanc put on hold at this time.
--- NOTE | 2022-10-24 15:17 | PM.IMHP ---
H&P: HPI History of Present Illness Date/Time: 10/24/22 15:17 Chief Complaint: right flank pain Narrative: this is a 77-year-old female patient has bilateral renal stents. The patient came to the emergency room because of the pain that started 630 last night. She denied any fever chills or Vomiting. However she does and door nausea. The patient stated that she has bilateral renal stents the nurse mostly changed every 6 months. She was due to have her renal stents changed August this year. She did not have them change in August. The patient recently had surgery LVa where she had a lymph node removed from her right upper chest and was placed in her lower extremity for her lymphedema. She had this performed per Dr. Goyal at [facility] on October 04, 2022. The patient does have some redness to the area in her right upper chest where she had a lymph node removed. The ED provider explained to me that he did talk to the surgeon at [facility]. Is recommended that the patient have a ultrasound of does that area to visualize any abscess infectious process to the right upper chest. Head neck ultrasound was read as no abscess hematoma or other abnormal fluid collections or masses in the right supraclavicular region of concern deep to a surgical wound. Her white count 11.1 . She does not appear septic or toxic. Her blood pressure is 161/72. Her BUN is 25 and creatinine 1.7. The patient is at her baseline with her creatinine. Her blood sugars 116. Her urine is positive for leukocyte esterase and wbc's. She had an echo ultra was read as following No abscess, hematoma or other abnormal fluid collections or masses in the right supraclavicular region of concern deep to a surgical wound. abdominal pelvis CT was read as the following1. Severe bilateral hydronephrosis and proximal hydroureter with bilateral internal ureteral stents in expected position. Mild atrophy of the kidneys. Left-sided pyelitis. 2. Bilateral nonobstructing kidney stones. the patient was given IV fluids, Dilaudid, Zofran, Rocephin, and vancomycin. the patient started itching with vancomycin was given Benadryl. The patient is being admitted to inpatient status on the date of service of 10/24/2022. after I admitted the patient. The ER provider discharge the patient to home. This is a short-stay summary. Review of Systems Review of Systems: All systems reviewed & are unremarkable except as noted in HPI and below Constitutional: Constitutional: Reports as per HPI and Reports no additional constitutional complaints Eyes: Eyes: Reports as per HPI and Reports no additional eye complaints ENT: Reports system reviewed and no additional complaints, except as documented and Reports Normal hearing present Cardiovascular: Cardiovascular: Reports no additional cardiovascular complaints Respiratory: Respiratory: Reports no additional respiratory complaints and Reports no additional respiratory complaints Gastrointestinal: Gastrointestinal: Reports as per HPI and Reports no additional gastrointestinal complaints Musculoskeletal: Musculoskeletal: Reports no additional musculoskeletal complaints Integumentary/Breasts: Skin/Breast: Reports system reviewed and no additional complaints, except as docu and Reports as per HPI Neurologic: Reports system reviewed and no additional complaints, except as documented, Reports as per HPI and Reports Normal hearing present Psychiatric: Psychiatric: Reports no additional psychiatric complaints and Reports as per HPI Endocrine: Endocrine: Reports no additional endocrine complaints Hematologic/Lymphatic: Hematologic/Lymphatic: Reports no additional hematologic/lymphatic complaints Allergic/Immunologic: Allergic/Immunologic: Reports no additional allergic/immunologic complaints [facility] Past Medical History Medical History (Updated 10/24/22 @ 18:12 by Debra Santiago NP) Chronic acquired lymphedema History of cervical
== END 2022-10-24 16:25 | disposition home or self-care (01) ==
PROVIDERS: Emergency Provider Emergency Medicine; PCP Family Medicine Sports Medicine
DX: N39.0 Urinary tract infection, site not specified (principal); N13.30 Unspecified hydronephrosis; Z96.0 Presence of urogenital implants; N20.0 Calculus of kidney; I10 Essential (primary) hypertension; E03.9 Hypothyroidism, unspecified; I89.0 Lymphedema, not elsewhere classified; N35.82 Other urethral stricture, female; Z85.41 Personal history of malignant neoplasm of cervix uteri; Z92.21 Personal history of antineoplastic chemotherapy; Z92.3 Personal history of irradiation; Z79.891 Long term (current) use of opiate analgesic
CPT/HCPCS: 36415; 74177; 76536; 80053; 81001; 83690; 85025; 87040; 87086; 87088; 96361; 96365; 96367; 96375; 96376; 99284; J0696; J1170; J1200; J2405; J3370; J7030; Q9967

== ENCOUNTER 2022-10-28 01:49 | Day surgery (SDC) | payer OTHER, SELFPAY ==
--- NOTE | 2022-10-26 12:48 | PM.HPGS ---
History of Present Illness History of Present Illness Consent: Risks, benefits, and alternatives have been discussed and questions answered. Patient agrees to proceed with procedure. Chief complaint: retroperitoneal fibrosis Narrative: Raquel Nova is a 57 year old female Known retroperitoneal fibrosis and bilateral ureteral obstruction managed with chronic indwelling ureteral stents. Review of Systems Cardiovascular: Cardiovascular: Denies chest pain, Denies lightheadedness, Denies palpitations and Denies dyspnea Respiratory: Respiratory: Denies dyspnea Gastrointestinal: Gastrointestinal: Denies diarrhea, Denies nausea and Denies vomiting Genitourinary: Genitourinary: Denies hematuria and Denies dysuria Endocrine: Endocrine: Denies palpitations PMF Past Medical History Medical History (Updated 10/25/22 @ 00:00 by Keshia Guardado) Chronic acquired lymphedema History of cervical cancer Treated with radiation therapy and chemotherapy with complications including chronic lymphedema, and 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 lva Morbid obesity Surgical History Surgical History (Updated 10/24/22 @ 15:18 by Debra Santiago NP) History of section due to breech presentation History of cholecystectomy History of renal stent History of tonsillectomy Ureteral stricture, left status post resection with reimplantation of the ureter May 2016 Family History Family History Mother Breast cancer Cerebrovascular accident Diabetes mellitus Heart disease Father Cerebrovascular accident Social History Social History (Updated 10/24/22 @ 18:15 by Debra Santiago NP) Social History: she is . she works at [employer] in [place]. she Has 2 children. she is a lifelong nonsmoker. Primary care physician: Dr. 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 Gender identity (if verbalized by the patient): Female Sexual Orientation (if Verbalized by the Patient): Straight or Heterosexual Spiritual care concerns: No Meds Home Medications and Allergies Home Medications Medication Instructions Recorded Confirmed Type levothyroxine 50 mcg tablet 50 mcg PO DAILY 01/05/20 04/01/22 History (Synthroid) Centrum Silver 1 tab-cap PO DAILY 03/11/21 03/26/22 History amlodipine 10 mg tablet 10 mg PO DAILY 03/11/21 04/01/22 History atorvastatin 10 mg tablet 10 mg PO DAILY 03/11/21 03/26/22 History cephalexin 250 mg capsule 250 mg PO HS 03/11/21 03/26/22 History hydrochlorothiazide 12.5 mg tablet 12.5 mg PO DAILY 03/11/21 03/26/22 History hydrocodone 5 mg-acetaminophen 325 1 - 2 tablet PO Q6H PRN pain #20 04/01/22 Rx mg tablet tabs ciprofloxacin HCl 500 mg tablet 500 mg PO Q12H #20 tabs 10/24/22 Rx (Cipro) Allergies Allergy/AdvReac Type Severity Reaction Status Date / Time Sulfa (Sulfonamide AdvReac Intermediate NAUSEA Verified 10/24/22 13:09 Antibiotics) Exam Const: General: no acute distress Resp: Effort & Inspection: normal respiratory effort GI: Inspection: non-distended GI Palp: No abdominal tenderness and No Guarding due to palpation present (GI) Auscultation: normal bowel sounds Assessment and Plan Assessment and plan (1) Retroperitoneal fibrosis: Code(s): N13.5 - Crossing vesse
[2022-10-27 08:41] VITALS: BMI 41.5
--- NOTE | 2022-10-27 08:47 | PC.NURSE ---
Report to the Outpatient Waiting Room, entrance under the green pavilion located off [facility], at time 1015 on date 10/28/22. Planned Procedure Time: 1215. Time changes happen often and if your time is changed the preop area will call you the afternoon before. - You and your visitor will be asked to self-screen and do not enter if you have any COVID symptoms. - A mask is optional within the hospital at this time. Patients may have clear liquids (water, carbonated beverages, clear teas, apple juice) until 3 hours prior to surgery with a maximum of 20 ounces. - No food from midnight until time of surgery Take the following medications with a SIP of water the morning of surgery: AMLODIPINE, LEVOTHYROXINE, CIPRO, PAIN PILL IF NEEDED DO NOT STOP ANY OF YOUR OTHER PRESCRIPTION MEDICATIONS PRIOR TO SURGERY ?EXCEPT THE FOLLOWING Medications to discontinue per physician: VITAMINS Date to take last dose: PT HAS ALREADY STOPPED Please no make-up, nail nepali, hairspray, perfume, deodorant, or body powder the day of surgery. No jewelry (including any body piercings) or valuables the day of surgery, leave them at home. Please take a shower or bath the night before, or the morning of, surgery with an antibacterial soap. Wear comfortable, loose fitting clothing. - Jewelry must be removed prior to entering the operating room. Rings and piercings that are not removed may be cut off. - The hospital will not accept responsibility for valuables. - Please leave all valuables, including medications, at home the day of surgery. If you are going home after surgery, a licensed wheelchair driver must drive you home. - NO public transportation without another adult if you receive anesthesia. - We recommend that an adult stay with you for 24 hours following discharge. - We also recommend that you do not drive, make important decision, drink alcoholic beverages, or take any drugs that were not prescribed by your health care provider for at least 24 hours after your discharge time. Follow any additional instructions given to you from your surgeon. If you or anyone in your household have experienced Covid symptoms in the past week, please notify your surgeon or the nurse liaison at the phone number below for possible testing. Telephone instructions given to PT - MARITZA TUBBS and asked if any additional questions and then verbalized understanding. Patient advised to call surgeon office or pre surgery nurse liaison [phone] if any additional questions.
[2022-10-28] VITALS (7 sets, daily range): BP systolic 113–154; BP diastolic 67–93; PULSE 73–98; RESP 11–20; TEMP 36.5–36.8; O2SAT 97–100
--- NOTE | ~2022-10-28 | XR_ITS ---
EXAMINATION: XR retrograde pyelo w/stent LT DATE: 10/28/2022 13:20 INDICATION: Retroperitoneal fibrosis. Bilateral hydronephrosis. TECHNIQUE: 6 intraoperative fluoroscopic views of the abdomen and pelvis were obtained. I was not pre sent. Fluoroscopy exposure time was 66 seconds. COMPARISON: CT abdomen and pelvis 10/24/2022 FINDINGS: There is a new right internal ureteral stent in expected position. The left-sided retrograd e pyelogram demonstrates severe hydronephrosis. There is a new left internal ureteral stent in expect ed position. IMPRESSION: 1. Severe left hydronephrosis. 2. New bilateral internal ureteral stents in expected positions. Reviewed, dictated and finalized at location A.
--- NOTE | 2022-10-28 06:44 | WPDHPUPDATE1 ---
History and Physical Update Update Date/Time: 10/28/22 06:44 History and Physical has been reviewed, including an updated exam of the patient. There are NO changes in the patient's condition. Risks, benefits, and alternatives have been discussed and questions answered. Patient agrees to proceed with procedure.
--- NOTE | 2022-10-28 11:23 | WPDANESEPPF ---
Anes - Initial Pre Proc Eval Procedure: Operation Date: 10/28/22 12:15 Proposed Procedures p Cystoscopy with Bilateral Ureteral Stent Exchange - Karl Harden MD Date/Time: 10/28/22 11:23 Surgeon: Karl Harden MD Pre Op Diagnosis: retroperitoneal fibrosis Patient Data Age: 57 Gender: F Height: 1.65 m Weight: 113.4 kg Last Vital Signs Temp 36.5 C 10/28/22 10:59 Pulse 94 10/28/22 10:59 Resp 16 10/28/22 10:59 BP 154/89 H 10/28/22 10:59 Pulse Ox 100 10/28/22 10:59 O2 Del Method Room Air 10/28/22 10:59 Allergies Allergy/AdvReac Type Severity Reaction Status Date / Time Sulfa (Sulfonamide AdvReac Intermediate NAUSEA Verified 10/28/22 11:05 Antibiotics) Home Medications Medication Instructions Recorded Confirmed Type levothyroxine 50 mcg tablet 50 mcg PO DAILY 01/05/20 10/28/22 History (Synthroid) Centrum Silver 1 tab-cap PO DAILY 03/11/21 10/28/22 History amlodipine 10 mg tablet 10 mg PO DAILY 03/11/21 10/28/22 History atorvastatin 10 mg tablet 10 mg PO DAILY 03/11/21 10/28/22 History cephalexin 250 mg capsule 250 mg PO HS 03/11/21 10/28/22 History hydrochlorothiazide 12.5 mg tablet 12.5 mg PO DAILY 03/11/21 10/28/22 History hydrocodone 5 mg-acetaminophen 325 1 - 2 tablet PO Q6H PRN pain #20 04/01/22 10/28/22 Rx mg tablet tabs ciprofloxacin HCl 500 mg tablet 500 mg PO Q12H #20 tabs 10/24/22 10/28/22 Rx (Cipro) Patient hx anesthesia problems: none Family hx anesthesia problems: none Results Review: All pre-operative results and documents have been reviewed as part of the pre-operative evaluation. [facility] Past Medical History Medical History Chronic acquired lymphedema History of cervical cancer Treated with radiation therapy and chemotherapy with complications including chronic lymphedema, and 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 lva Morbid obesity Surgical History Surgical History History of section due to breech presentation History of cholecystectomy History of renal stent History of tonsillectomy Ureteral stricture, left status post resection with reimplantation of the ureter May 2016 Family History Family History Mother Breast cancer Cerebrovascular accident Diabetes mellitus Heart disease Father Cerebrovascular accident Social History Social History Social History: she is . she works at [employer] in [place]. she Has 2 children. she is a lifelong nonsmoker. Primary care physician: Dr. 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 Gender identity (if verbalized by the patient): Female Sexual Orientation (if Verbalized by the Patient): Straight or Heterosexual Spiritual care concerns: No Anes - Eval Final PreProcedure Day of Procedure 10/28/22 11:23 Patient weight: morbidly obese Heart: regular rate and rhythm Lungs: clear to auscultation Airway: Mallampati scale class II Neurological: alert and oriented Last oral intake: >/= 8 hours ASA classification: III Emergent: no Anesthetic plan: proceed Anesthesia type and monitoring: general LMA and standard monitoring Results Review: All pre-
[2022-10-28] MEDS: SCOPOLAMINE 1.5 MG PATCH TRANSDERM (11:32)
[2022-10-28] MEDS: LACTATED RINGERS 1,000 ML 30 ML IV CONT (11:35)
--- NOTE | 2022-10-28 13:26 | W.PM.PROC2 ---
Procedure Note - Detailed Date of Procedure 10/28/22 Pre-op Diagnosis Bilateral ureteral obstruction secondary to retroperitoneal fibrosis Post-op Diagnosis Same Procedure Performed cystoscopy right ureteral stent exchange, left ureteroscopy with retrograde pyelography and stent exchange Surgeon Karl Harden MD Anesthesia General Description of Procedure Patient is brought to the operative suite where she has prepped draped in routine sterile fashion while in a dorsal lithotomy position.? Twenty-one F rigid cystoscope was placed in the bladder.? Each stent is grasped and brought to the external urethral meatus.? A 0.035 in glidewire was advanced through each stent into the renal pelvis.? Retrograde pyelography is undertaken with an angiographic catheter to insure appropriate positioning.? New 6F variable length bilateral ureteral stents were placed with the proximal coil in the renal pelvis and the distal coil in the bladder.? I had a bit of difficulty and visually the left ureteral stent so I performed rigid cystoscopy with retrograde pyelography to ensure appropriate intubation of the ectopic left ureteral orifice (previous left ureteral reimplant). It should be noted that her current stents had minimal encrustation at the 6 month interval.? Scopes and wires removed she was taken recovery room good condition.
[2022-10-28] MEDS: oxyCODONE HCL (*CRX) 5 MG TAB IR PO (14:39)
== END 2022-10-28 15:06 | disposition home or self-care (01) ==
PROVIDERS: PCP Family Medicine Sports Medicine; Visit Provider Urology
PROC: (CPT 52310; principal; 2022-10-28 12:15)
DX: N13.5 Crossing vessel and stricture of ureter without hydronephrosis (principal); K66.8 Other specified disorders of peritoneum; Z85.41 Personal history of malignant neoplasm of cervix uteri; I10 Essential (primary) hypertension; E78.5 Hyperlipidemia, unspecified; E66.01 Morbid (severe) obesity due to excess calories; Z68.41 Body mass index [BMI] 40.0-44.9, adult; Z92.21 Personal history of antineoplastic chemotherapy; Z92.3 Personal history of irradiation
CPT/HCPCS: 52332; 74420; A9270; C1758; C2617; J1100; J2250; J2405; J2704; J3010; J7120

== ENCOUNTER 2023-02-11 08:00 | Outpatient (RCR) | payer OTHER, SELFPAY ==
--- NOTE | 2023-01-14 11:39 | OPREHPOC ---
Outpatient Therapy Plan of Care This is a Multidisciplinary Plan of Care that may contain components documented by all disciplines (PT, OT, and ST.) PT Problem 1 PT Problem #1 Knowledge Deficit PT Goal 1 Goal 1* indep with HEP 2* indep with self manual lymph drainage PT Problem 2 PT Problem #2 Impaired Strength PT Goal 1 Goal 1* pt able to perform R and L LE supine exercises x 15 reps PT Problem 3 PT Problem #3 Impaired Lymphatic System PT Goal 1 Goal circumferential measurement of LE to 72 cm from bottom of foot: 1* R 900 cm 2* L 900 cm visible malleoli 3* R 4* L 5* no firmness with palpation over R anterior sanchez /lower leg around incision 6* pt have correct compression garments for R and L LE to manage her lymphedema
--- NOTE | 2023-01-14 11:39 | PTOPEVAL1 ---
Assessment and note entered by Lore Schulz, PT Evaluation Information Assessment Status Evaluation Diagnosis lymphedema in both legs Onset September 2022 Subjective Information Activity: work at [employer] at [employer] work-- full duties no precautions now from her surgery; is not really able to do any exercises due to heavy legs and pain R hip; discussed aquatic exercises, walking--she has done in the past and her sister has a heated pool; encouraged to do aquatic exercises and walking. Reported Pain Level Pain Score 2: Self Report Additional Pain Score Comments sore, tender in legs Assessment PT Clinical Summary Raquel has the diagnosis of bilateral LE lymphedema. Chronic issues, since 2007 cervical surgery, radiation and chemotherapy treatments. She was using compression garments over both R and L legs. She had lymph node transplant surgery to her R leg in September. In the past, her R leg has always been the larger leg. She is going to see an ortho dr about R THR. With the evaluation, Raquel is indep with mobility with the cane; with the circumferential measurements, her L leg is 8.4 cm larger than her R leg; both legs have pitting edema with thickness of the tissue throughout lateral hip, thighs and lower legs; the R leg has incisions from her surgery--the thigh scar has good mobility and the anterior lower leg scar has firmness and thickening of the tissue around it. Skilled PT services are indicated for complete decongestive, lymphedema treatment--multilayer compression wraps, manual lymph drainage, LE exerciess, education for self care and garments. Plan of Care Interventions Intermittent Compression pump,Lymphedema Compression Wrap Manual Therapy,Therapeutic Exercise, pt education PT Services Indicated Yes Treatment Frequency and 2x/wk for 6 weeks Duration These treatments will address the objective and functional deficits as defined above. The patient will be advanced safely and appropriately in order for the patient to progress towards his/her prior level of function. Additional exercises will be introduced and as well as a comprehensive home exercise program upon discharge, if needed, ?to ensure carryover of functional gains achieved in the clinic. This treatment plan has been reviewed and agreement upon by the patient.
--- NOTE | 2023-01-14 12:34 | PTOPEVAL1 ---
Assessment and note entered by Lore Schulz, PT Evaluation Information Assessment Status Evaluation Diagnosis lymphedema in both legs Onset September 2022 Subjective Information Activity: work at [employer] at [employer] work-- full duties ; no precautions now from her surgery; is not really able to do any exercises due to heavy legs and pain R hip; discussed aquatic exercises, walking--she has done in the past and her sister has a heated pool; encouraged to do aquatic exercises and walking. Reported Pain Level Pain Score 2: Self Report Additional Pain Score Comments sore, tender in legs Assessment PT Clinical Summary Raquel has the diagnosis of bilateral LE lymphedema. Chronic issues, since 2007 cervical surgery, radiation and chemotherapy treatments. Simona was using compression garments over both R and L legs. She had lymph node transplant surgery to her R leg in September. In the past, her R leg has always been the larger leg. She is going to see an ortho dr about R THR. With the evaluation, Raquel is indep with mobility with the cane; with the circumferential measurements, her L leg is 8.4 cm larger than her R leg; both legs have pitting edema with thickness of the tissue throughout lateral hip, thighs and lower legs; the R leg has incisions from her surgery--the thigh scar has good mobility , and the anterior lower leg scar has firmeness and thickening of the tissue around it. Skilled PT services are indicated for complete decongestive, lymphedema treatment--multilayer compression wraps, manual lymph drainage, LE exercises, education for self care and garments. Plan of Care Interventions Intermittent Compression pump,Lymphedema Compression Wrap Manual Therapy,Therapeutic Exercise PT Services Indicated Yes Treatment Frequency and 3x/wk for 6 weeks Duration These treatments will address the objective and functional deficits as defined above. The patient will be advanced safely and appropriately in order for the patient to progress towards his/her prior level of function. Additional exercises will be introduced and as well as a comprehensive home exercise program upon discharge, if needed, ?to ensure carryover of functional gains achieved in the clinic. This treatment plan has been reviewed and agreement upon by the patient.
--- NOTE | 2023-02-11 09:20 | PTOPDC ---
Assessment and note entered by Lore Schulz, PT Evaluation Information Assessment Status Discharge Diagnosis lymphedema in both legs Onset September 2022 Subjective Information saw ortho yesterday, going to have R THR in Feb and needs one on R also; and stent surgery either before or after the THR- need to talk with catalina sumner; using the velcro reduction kit; has home pump and knows how to wrap her legs; agrees to d/c PT services; Reported Pain Level Pain Score 3-4: Self Report Additional Pain Score Comments dull ache in both legs R > L; Assessment PT Clinical Summary Raquel has received 12 PT sessions. Compared to the initial evaluation: with circumferential measurements reduction: R by 39.1 cm and L by 26.7 cm; improved scar mobility over R thigh and anterior lower leg scars; decreased R and L medial and lateral malleoli edema; Education completed for self management of lymphedema. She knows how to do self manual lymph drainage, home compression pump and self wraps and use of velcro garments over lower legs and thighs. She also has velcro foot pieces. She was not able to tolerate over the counter calf high garment on R LE due to bunching at ankle. Previously, she had compression garments that were custom made. Her leg size will continue to change with R THR, R LE liposuction, L THR surgery and stent replacement of her abdomen. After THR, she will not be able to flex her hip over 90', so will required assist with garments and home pump. She does not know if she will be able to have anyone to help her consistently. Discussed with pt---she does not want to invest in custom garments, since her legs will change release manager the course of above surgeries. She will continue to use her velcro garments to manage her legs. Discharge PT at this time. Discussed with her that she will require a new order after surgery to resume treatment for her legs. Plan of Care PT Services Indicated No
== END 2023-02-14 13:29 | disposition home or self-care (01) ==
LOC: ANHPT 08:00
PROVIDERS: PCP Family Medicine Sports Medicine
DX: I89.0 Lymphedema, not elsewhere classified (principal)
CPT/HCPCS: 29581; 97016; 97140; 97161; 97530

== ENCOUNTER 2023-02-28 09:09 | Outpatient (CLI) | payer OTHER, SELFPAY ==
[2023-02-28 10:31] LABS: Anion Gap 8 mmol/L (8-16); Blood Urea Nitrogen 27 mg/dL (7-17); Carbon Dioxide 27 mmol/L (22-30); Chloride 103 mmol/L (98-107); Estimated Glomerular Filt Rate 31; Glucose 115 mg/dL (65-110); Potassium 3.8 mmol/L (3.4-5.0); Sodium 138 mmol/L (137-145)
== END 2023-02-28 09:10 | disposition home or self-care (01) ==
LOC: ANHSURGERY 09:13
PROVIDERS: Anesthesiology; PCP Family Medicine Sports Medicine; Visit Provider Urology
DX: Z79.899 Other long term (current) drug therapy (principal); Z01.818 Encounter for other preprocedural examination
CPT/HCPCS: 36415; 80048

== ENCOUNTER 2023-03-02 08:16 | Outpatient (CLI) | payer OTHER, SELFPAY ==
--- NOTE | 2023-03-02 | ECG_ITS ---
Measurements Intervals [place] Rate: 84 P: 76 VA: 192 QRS: -36 QRSD: 146 T: 72 QT: 397 QTc: 470 Interpretive Statements SINUS RHYTHM LEFT ATRIAL ENLARGEMENT [-0.15mV P WAVE IN V1/V2] MARKED LEFT AXIS DEVIATION [QRS AXIS < -30] INTRAVENTRICULAR CONDUCTION DELAY POOR R-WAVE PROGRESSION COMPARED TO ECG 03/30/2022 09:05:05 NO SIGNIFICANT CHANGE Electronically Signed On 03-02-2023 15:44:41 CDT by Diane Tejeda M.D.
[2023-03-02 09:01] LABS: Basophils Percent Auto 0.5 % (0.2-1.2); Eosinophils Absolute Auto 0.1 K/mm3 (0-0.3); Eosinophils Percent Auto 1.1 % (0-4.4); Hematocrit 42.4 % (37.0-47.0); Hemoglobin 13.5 g/dL (12.0-15.0); Immature Granulocyte Absolute 0.08 K/mm3 (0.00-0.031); Immature Granulocyte Percent A 0.9 % (0-0.5); Lymphocytes Absolute Auto 1.67 K/mm3 (0.9-3.2); Lymphocytes Percent Auto 19.5 % (18.3-44.2); Mean Corpuscular HGB Conc 31.8 g/dl (32-36); Mean Corpuscular Hemoglobin 28.5 pg (26-34); Mean Corpuscular Volume 89.5 fl (80-100); Monocytes Percent Auto 11.3 % (2.6-8.5); Neutrophils Absolute Auto 5.7 K/mm3 (1.3-6.7); Neutrophils Percent Auto 66.7 % (45.5-73.1); Platelet Count Result 299 k/mm3 (150-375); Red Blood Count 4.74 M/mm3 (4.2-5.4); Red Cell Distribution Width 14.7 % (11.5-14.5); White Blood Count 8.6 K/mm3 (4.5-10.0)
[2023-03-02 09:08] LABS: Alanine Aminotransferase 28 U/L (6-35); Albumin Level 4.2 g/dL (3.5-5.1); Alkaline Phosphatase 106 U/L (38-126); Anion Gap 9 mmol/L (8-16); Aspartate Amino Transferase 30 U/L (14-36); Bilirubin,Total 0.6 mg/dL (0.2-1.3); Blood Urea Nitrogen 32 mg/dL (7-17); Calcium 9.4 mg/dL (8.4-10.2); Carbon Dioxide 30 mmol/L (22-30); Chloride 100 mmol/L (98-107); Estimated Glomerular Filt Rate 26; Glucose 119 mg/dL (65-110); Potassium 3.5 mmol/L (3.4-5.0); Sodium 139 mmol/L (137-145)
== END 2023-03-02 08:17 | disposition home or self-care (01) ==
LOC: ANHLAB 08:18
PROVIDERS: PCP Family Medicine Sports Medicine; Visit Provider Nurse Practitioner
DX: Z01.818 Encounter for other preprocedural examination (principal)
CPT/HCPCS: 36415; 80053; 85025; 93005

== ENCOUNTER 2023-03-10 00:36 | Day surgery (SDC) | payer OTHER, SELFPAY ==
--- NOTE | 2023-02-24 16:19 | PM.HPGS ---
History of Present Illness History of Present Illness Consent: Risks, benefits, and alternatives have been discussed and questions answered. Patient agrees to proceed with procedure. Chief complaint: ureteral obstruction Narrative: Raquel Nova is a 57 year old female Known retroperitoneal fibrosis and bilateral ureteral obstruction managed with chronic indwelling ureteral stents. patient has an upcoming orthopedic procedure and we are, therefore, changing stents a bit early Review of Systems Cardiovascular: Cardiovascular: Denies chest pain, Denies lightheadedness, Denies palpitations and Denies dyspnea Respiratory: Respiratory: Denies dyspnea Gastrointestinal: Gastrointestinal: Denies diarrhea, Denies nausea and Denies vomiting Genitourinary: Genitourinary: Denies hematuria and Denies dysuria Endocrine: Endocrine: Denies palpitations PMFSH Past Medical History Medical History Chronic acquired lymphedema History of cervical cancer Treated with radiation therapy and chemotherapy with complications including chronic lymphedema, and 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 lva Morbid obesity Surgical History Surgical History History of section due to breech presentation History of cholecystectomy History of renal stent History of tonsillectomy Ureteral stricture, left status post resection with reimplantation of the ureter May 2016 Family History Family History Mother Breast cancer Cerebrovascular accident Diabetes mellitus Heart disease Father Cerebrovascular accident Social History Social History Social History: she is . she works at [employer] in [place]. she Has 2 children. she is a lifelong nonsmoker. Primary care physician: Dr. 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 Gender identity (if verbalized by the patient): Female Sexual Orientation (if Verbalized by the Patient): Straight or Heterosexual Spiritual care concerns: No Meds Home Medications and Allergies Home Medications Medication Instructions Recorded Confirmed Type levothyroxine 50 mcg tablet 50 mcg PO DAILY 01/05/20 10/28/22 History (Synthroid) Centrum Silver 1 tab-cap PO DAILY 03/11/21 10/28/22 History amlodipine 10 mg tablet 10 mg PO DAILY 03/11/21 10/28/22 History atorvastatin 10 mg tablet 10 mg PO DAILY 03/11/21 10/28/22 History cephalexin 250 mg capsule 250 mg PO HS 03/11/21 10/28/22 History hydrochlorothiazide 12.5 mg tablet 12.5 mg PO DAILY 03/11/21 10/28/22 History hydrocodone 5 mg-acetaminophen 325 1 - 2 tablet PO Q6H PRN pain #20 04/01/22 10/28/22 Rx mg tablet tabs ciprofloxacin HCl 500 mg tablet 500 mg PO Q12H #20 tabs 10/24/22 10/28/22 Rx (Cipro) cephalexin 500 mg capsule 500 mg PO Q8H #9 caps 10/28/22 Rx hydrocodone 5 mg-acetaminophen 325 1 - 2 tablet PO Q6H PRN pain #20 10/28/22 Rx mg tablet tabs Allergies Allergy/AdvReac Type Severity Reaction Status Date / Time Sulfa (Sulfonamide AdvReac Intermediate NAUSEA Verified 10/28/22 11:05 Antibiotics) Exam Const: General: no acute distress Resp: Effort & Inspection: normal respiratory effort GI: Insp
[2023-02-25 08:43] VITALS: BMI 41.5
--- NOTE | 2023-02-25 08:48 | PC.NURSE ---
Report to the Outpatient Waiting Room, entrance under the green pavilion located off [facility], at time 11:00 on date 03/10/23. Planned Procedure Time: 1:00. Time changes happen often and if your time is changed the preop area will call you the afternoon before. - You and your visitor will be asked to self-screen and do not enter if you have any COVID symptoms. - A mask is optional within the hospital at this time. Patients may have clear liquids (water, carbonated beverages, clear teas, apple juice) until 3 hours prior to surgery (10:00) with a maximum of 20 ounces. - No food from midnight until time of surgery Take the following medications with a SIP of water the morning of surgery: AMLODIPINE, LEVOTHYROXINE DO NOT STOP ANY OF YOUR OTHER PRESCRIPTION MEDICATIONS PRIOR TO SURGERY ?EXCEPT THE FOLLOWING Medications to discontinue per physician: VITAMINS Date to take last dose: 03/06/23 Please no make-up, nail chinese, hairspray, perfume, deodorant, or body powder the day of surgery. No jewelry (including any body piercings) or valuables the day of surgery, leave them at home. Please take a shower or bath the night before, or the morning of, surgery with an antibacterial soap. Wear comfortable, loose fitting clothing. - Jewelry must be removed prior to entering the operating room. Rings and piercings that are not removed may be cut off. - The hospital will not accept responsibility for valuables. - Please leave all valuables, including medications, at home the day of surgery. If you are going home after surgery, a licensed frontload driver must drive you home. - NO public transportation without another adult if you receive anesthesia. - We recommend that an adult stay with you for 24 hours following discharge. - We also recommend that you do not drive, make important decision, drink alcoholic beverages, or take any drugs that were not prescribed by your health care provider for at least 24 hours after your discharge time. Follow any additional instructions given to you from your surgeon. If you or anyone in your household have experienced Covid symptoms in the past week, please notify your surgeon or the nurse liaison at the phone number below for possible testing. Telephone instructions given to PT - MARITZA TUBBS and asked if any additional questions and then verbalized understanding. Patient advised to call surgeon office or pre surgery nurse liaison [phone] if any additional questions.
[2023-03-10] VITALS (7 sets, daily range): BP systolic 99–134; BP diastolic 54–81; PULSE 77–100; RESP 12–18; TEMP 37.1; O2SAT 97–100; BMI 40.6
--- NOTE | ~2023-03-10 | XR_ITS ---
EXAMINATION: XR retrograde pyelo w/stent BI DATE: 03/10/2023 12:04 INDICATION: Bilateral ureteral stent exchange. TECHNIQUE: 76 intraoperative fluoroscopic views of the abdomen and pelvis were obtained. I was not pr esent. Fluoroscopy exposure time was 76 seconds. COMPARISON: CT abdomen and pelvis 10/24/2022 FINDINGS: The pipe puller images demonstrate bilateral internal ureteral stents in expected positions. Dens ities in the area of the uterine cervix may be brachytherapy seeds. Additional images demonstrate rem oval of stents and bilateral retrograde pyelograms which demonstrate severe bilateral hydronephrosis. The final images demonstrate new bilateral internal ureteral stents in expected positions. IMPRESSION: 1. Severe bilateral hydronephrosis. 2. New bilateral internal ureteral stents in expected positions. Reviewed, dictated and finalized at location A.
--- NOTE | 2023-03-10 06:28 | WPDHPUPDATE1 ---
History and Physical Update Update Date/Time: 03/10/23 06:28 History and Physical has been reviewed, including an updated exam of the patient. There are NO changes in the patient's condition. Risks, benefits, and alternatives have been discussed and questions answered. Patient agrees to proceed with procedure.
--- NOTE | 2023-03-10 10:57 | WPDANESEPPF ---
Anes - Initial Pre Proc Eval Procedure: Operation Date: 03/10/23 12:30 Proposed Procedures p Cystoscopy, Bilateral Stent Exchange - Karl Harden MD Date/Time: 03/10/23 10:57 Surgeon: Karl Harden MD Pre Op Diagnosis: ureteral obstruction Patient Data Age: 57 Gender: F Height: 1.65 m Weight: 113.4 kg Allergies Allergy/AdvReac Type Severity Reaction Status Date / Time Sulfa (Sulfonamide AdvReac Intermediate NAUSEA Verified 02/25/23 08:42 Antibiotics) Home Medications Medication Instructions Recorded Confirmed Type levothyroxine 50 mcg tablet 50 mcg PO DAILY 01/05/20 02/25/23 History (Synthroid) Centrum Silver 1 tab-cap PO DAILY 03/11/21 02/25/23 History amlodipine 10 mg tablet 10 mg PO DAILY 03/11/21 02/25/23 History atorvastatin 10 mg tablet 10 mg PO DAILY 03/11/21 02/25/23 History cephalexin 250 mg capsule 250 mg PO HS 03/11/21 02/25/23 History hydrochlorothiazide 12.5 mg tablet 12.5 mg PO DAILY 03/11/21 02/25/23 History lisinopril 20 mg tablet 20 mg PO DAILY 02/25/23 02/25/23 History Patient hx anesthesia problems: none Family hx anesthesia problems: none Results Review: All pre-operative results and documents have been reviewed as part of the pre-operative evaluation. [facility] Past Medical History Medical History Chronic acquired lymphedema History of cervical cancer Treated with radiation therapy and chemotherapy with complications including chronic lymphedema, and 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 lva Morbid obesity Surgical History Surgical History History of section due to breech presentation History of cholecystectomy History of renal stent History of tonsillectomy Ureteral stricture, left status post resection with reimplantation of the ureter May 2016 Family History Family History Mother Breast cancer Cerebrovascular accident Diabetes mellitus Heart disease Father Cerebrovascular accident Social History Social History Social History: she is . she works at [employer] in [place]. she Has 2 children. she is a lifelong nonsmoker. Primary care physician: Dr. 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 Gender identity (if verbalized by the patient): Female Sexual Orientation (if Verbalized by the Patient): Straight or Heterosexual Spiritual care concerns: No Anes - Eval Final PreProcedure Day of Procedure 03/10/23 10:57 Patient weight: morbidly obese Heart: regular rate and rhythm Lungs: clear to auscultation Airway: Mallampati scale class II Neurological: alert and oriented Last oral intake: >/= 8 hours ASA classification: III Emergent: no Anesthetic plan: proceed Anesthesia type and monitoring: general LMA and standard monitoring Results Review: All pre-operative results and documents have been reviewed as part of the pre-operative evaluation. Informed Consent: The patient's anesthetic plan and its attendant risks and benefits were discussed with the patient/family/POA. Questions were solicited and answers provided to the satisfaction of the patient/family/POA.
[2023-03-10] MEDS: SCOPOLAMINE 1.5 MG PATCH TRANSDERM (11:05)
[2023-03-10] MEDS: LACTATED RINGERS 1,000 ML 30 ML IV CONT ×2 (11:35→13:06)
[2023-03-10] MEDS: ceFAZolin 2 GM/D5W 50 ML 2 GM/50 ML BAG IVPB (11:38)
--- NOTE | 2023-03-10 11:46 | W.PM.PROC2 ---
Procedure Note - Detailed Date of Procedure 03/10/23 Pre-op Diagnosis Ureteral obstruction/retroperitoneal fibrosis Post-op Diagnosis Same Procedure Performed Cystoscopy, bilateral retrograde pyelogram and bilateral stent replacement Surgeon Karl Harden MD Anesthesia General Description of Procedure Patient is brought to the operative suite where she has prepped draped in routine sterile fashion while in a dorsal lithotomy position.? Twenty-one F rigid cystoscope was placed in the bladder.? Each stent is grasped and brought to the external urethral meatus.? A 0.035 in glidewire was advanced through each stent into the renal pelvis.? Retrograde pyelography is undertaken with an angiographic catheter to insure appropriate positioning.? New 6F variable length bilateral ureteral stents were placed with the proximal coil in the renal pelvis and the distal coil in the bladder.?? I had a bit of difficulty and visually the left ureteral stent so I performed rigid cystoscopy with retrograde pyelography to ensure appropriate intubation of the ectopic left ureteral orifice (previous left ureteral reimplant).? It should be noted that her current stents had minimal encrustation at the 6 month interval.? Scopes and wires removed she was taken recovery room good condition. Drains Yes Packing No Pathology None sent Complications No immediate complications Condition Stable Disposition PACU
[2023-03-10] MEDS: LIDOCAINE HCL 2% GEL UROJET 10 ML PKG MUCOUS MEM (11:50)
[2023-03-10] MEDS: ONDANSETRON INJ 4 MG/2 ML VIAL IV PUSH (13:13)
--- NOTE | 2023-03-10 17:11 | SUR.PHASEII ---
1345: Patient's vitals are stable. She is dressed and waiting for her ride.
== END 2023-03-10 13:55 | disposition home or self-care (01) ==
PROVIDERS: PCP Family Medicine Sports Medicine; Visit Provider Urology
PROC: (CPT 52352; principal; 2023-03-10 12:30)
DX: N13.5 Crossing vessel and stricture of ureter without hydronephrosis (principal); Z85.41 Personal history of malignant neoplasm of cervix uteri; I10 Essential (primary) hypertension; E03.9 Hypothyroidism, unspecified; E78.5 Hyperlipidemia, unspecified; E66.01 Morbid (severe) obesity due to excess calories; Z68.41 Body mass index [BMI] 40.0-44.9, adult
CPT/HCPCS: 52332; 74420; A9270; C1758; C1769; C2617; J0690; J2250; J2405; J2704; J3010; J7120; Q9966

== ENCOUNTER 2023-10-13 08:40 | Outpatient (CLI) | payer OTHER, SELFPAY ==
[2023-10-13 09:38] LABS: Anion Gap 9 mmol/L (4-12); Blood Urea Nitrogen 26 mg/dL (7-17); Calcium 9.3 mg/dL (8.4-10.2); Carbon Dioxide 25 mmol/L (22-30); Chloride 107 mmol/L (98-107); Estimated Glomerular Filt Rate 19; Glucose 115 mg/dL (65-110); Potassium 3.7 mmol/L (3.4-5.0); Sodium 141 mmol/L (137-145)
== END 2023-10-13 08:41 | disposition home or self-care (01) ==
LOC: ANHSURGERY 08:43
PROVIDERS: Anesthesiology; PCP Family Medicine; Visit Provider Urology
DX: Z01.818 Encounter for other preprocedural examination (principal); Z79.899 Other long term (current) drug therapy
CPT/HCPCS: 36415; 80048

== ENCOUNTER 2023-10-20 00:21 | Day surgery (SDC) | payer OTHER, SELFPAY ==
--- NOTE | 2023-10-10 07:15 | PM.HPGS ---
History of Present Illness History of Present Illness Consent: Risks, benefits, and alternatives have been discussed and questions answered. Patient agrees to proceed with procedure. Chief complaint: Hydronephrosis, Pyelonephritis Narrative: Raquel Nova is a 58 year old female Who is well known to me with a history of retroperitoneal fibrosis causing bilateral ureteral obstruction. This is managed with chronic indwelling ureteral stents which are changed periodically. The stents were last changed on 03/10/2023. She presents today for cystoscopy with bilateral ureteral stent exchange. She is aware of the risks including hematuria, infection and other things. 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 lva Morbid obesity Surgical History Surgical History History of section due to breech presentation History of cholecystectomy History of renal stent History of tonsillectomy Ureteral stricture, left status post resection with reimplantation of the ureter May 2016 Family History Family History Mother Breast cancer Cerebrovascular accident Diabetes mellitus Heart disease Father Cerebrovascular accident Social History Social History Social History: she is . she works at [employer] in [email or web address]. she Has 2 children. she is a lifelong nonsmoker. Primary care physician: Dr. 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 Gender identity (if verbalized by the patient): Female Sexual Orientation (if Verbalized by the Patient): Straight or Heterosexual Spiritual care concerns: No Meds Home Medications and Allergies Home Medications Medication Instructions Recorded Confirmed Type levothyroxine 50 mcg tablet 50 mcg PO DAILY 01/05/20 03/10/23 History (Synthroid) Centrum Silver 1 tab-cap PO DAILY 03/11/21 03/10/23 History atorvastatin 10 mg tablet 10 mg PO DAILY 03/11/21 03/10/23 History cephalexin 250 mg capsule 250 mg PO HS 03/11/21 03/10/23 History hydrochlorothiazide 12.5 mg tablet 12.5 mg PO DAILY 03/11/21 03/10/23 History lisinopril 20 mg tablet 20 mg PO DAILY 02/25/23 03/10/23 History ciprofloxacin HCl 500 mg tablet 500 mg PO Q12H #6 tabs 03/10/23 Rx hydrocodone 5 mg-acetaminophen 325 1 - 2 tablet PO Q6H PRN pain #12 03/10/23 Rx mg tablet tabs Allergies Allergy/AdvReac Type Severity Reaction Status Date / Time Sulfa (Sulfonamide AdvReac Intermediate NAUSEA Verified 03/10/23 11:34 Antibiotics) Exam Const: General: no acute distress Resp: Effort & Inspection: normal respiratory effort GI: Inspection: non-distended GI Palp: No abdominal tenderness and No Guarding due to palpation present (GI) Auscultation: normal bowel sounds Assessment and Plan Assessment and plan (1) Retroperitoneal fibrosis: Code(s): N13.5 - Crossing vessel and stricture of
[2023-10-12 12:02] VITALS: BMI 39.9
--- NOTE | 2023-10-12 12:03 | PC.NURSE ---
Report to the Outpatient Waiting Room, entrance under the green pavilion located off [facility], at time _0600_ on date _[id number]_. Planned Procedure Time: _0730_. Time changes happen often and if your time is changed the preop area will call you the afternoon before. - You and your visitor will be asked to self-screen and do not enter if you have any COVID symptoms. - A mask is optional within the hospital at this time. Patients may have clear liquids (water, carbonated beverages, clear teas, apple juice) until 3 hours prior to surgery with a maximum of 20 ounces. - No food from midnight until time of surgery Take the following medications with a SIP of water the morning of surgery: __Levothyroxine DO NOT STOP ANY OF YOUR OTHER PRESCRIPTION MEDICATIONS PRIOR TO SURGERY ?EXCEPT THE FOLLOWING Medications to discontinue per physician ___Vitamin Date to take last [id number] Please no make-up, nail greek, hairspray, perfume, deodorant, or body powder the day of surgery. No jewelry (including any body piercings) or valuables the day of surgery, leave them at home. Please take a shower or bath the night before, or the morning of, surgery with an antibacterial soap. Wear comfortable, loose fitting clothing. - Jewelry must be removed prior to entering the operating room. Rings and piercings that are not removed may be cut off. - The hospital will not accept responsibility for valuables. - Please leave all valuables, including medications, at home the day of surgery. If you are going home after surgery, a licensed set key driver must drive you home. - NO public transportation without another adult if you receive anesthesia. - We recommend that an adult stay with you for 24 hours following discharge. - We also recommend that you do not drive, make important decision, drink alcoholic beverages, or take any drugs that were not prescribed by your health care provider for at least 24 hours after your discharge time. Follow any additional instructions given to you from your surgeon. If you or anyone in your household have experienced Covid symptoms in the past week, please notify your surgeon or the nurse liaison at the phone number below for possible testing. Telephone instructions given to _Raquel__and asked if any additional questions and then verbalized understanding. Patient advised to call surgeon office or pre surgery nurse liaison [phone] if any additional questions.
[2023-10-20] VITALS (7 sets, daily range): BP systolic 128–143; BP diastolic 61–85; PULSE 77–106; RESP 12–20; TEMP 36.2–37; O2SAT 98–100; BMI 41.7
--- NOTE | ~2023-10-20 | XR_ITS ---
EXAMINATION: XR retrograde pyelo w/stent BI DATE: 10/20/2023 08:34 INDICATION: Bilateral ureteral stent exchange. TECHNIQUE: Intraoperative fluoroscopic views of the abdomen and pelvis were obtained. I was not prese nt. Fluoroscopy exposure time was 466 seconds. COMPARISON: Fluoroscopy 03/10/2023 FINDINGS: The entry level electrician image demonstrates bilateral internal ureteral stents in expected position. Retro grade pyelograms demonstrate severe bilateral hydronephrosis. The final images demonstrate new marketing summer intern al ureteral stents in expected positions. There is a right hip arthroplasty. Surgical clips overlie t he pelvis. IMPRESSION: 1. Severe bilateral hydronephrosis. 2. New bilateral internal ureteral stents in expected positions. Reviewed, dictated and finalized at location A.
--- NOTE | 2023-10-20 06:34 | WPDHPUPDATE1 ---
History and Physical Update Update Date/Time: 10/20/23 06:34 History and Physical has been reviewed, including an updated exam of the patient. There are NO changes in the patient's condition. Risks, benefits, and alternatives have been discussed and questions answered. Patient agrees to proceed with procedure.
--- NOTE | 2023-10-20 06:56 | WPDANESEPPF ---
Anes - Initial Pre Proc Eval Procedure: Operation Date: 10/20/23 07:30 Proposed Procedures p Cystoscopy, Bilateral Ureteral Stent Exchange - Karl Harden MD Date/Time: 10/20/23 06:56 Surgeon: Karl Harden MD Pre Op Diagnosis: Hydronephrosis, Pyelonephritis Patient Data Age: 58 Gender: F Height: 1.65 m Weight: 113.8 kg Last Vital Signs Temp 98.6 F 10/20/23 06:47 Pulse 106 H 10/20/23 06:47 Resp 18 10/20/23 06:47 BP 134/82 10/20/23 06:47 Pulse Ox 98 10/20/23 06:47 O2 Del Method Room Air 10/20/23 06:47 Allergies Allergy/AdvReac Type Severity Reaction Status Date / Time Sulfa (Sulfonamide AdvReac Intermediate NAUSEA Verified 10/12/23 11:57 Antibiotics) Home Medications Medication Instructions Recorded Confirmed Type levothyroxine 50 mcg tablet 50 mcg PO DAILY 01/05/20 10/20/23 History (Synthroid) Centrum Silver 1 tab-cap PO DAILY 03/11/21 10/12/23 History atorvastatin 10 mg tablet 10 mg PO DAILY 03/11/21 10/12/23 History cephalexin 250 mg capsule 250 mg PO HS 03/11/21 10/12/23 History hydrochlorothiazide 12.5 mg tablet 12.5 mg PO DAILY 03/11/21 10/12/23 History lisinopril 20 mg tablet 20 mg PO DAILY 02/25/23 10/12/23 History Patient hx anesthesia problems: post op nausea/vomiting Family hx anesthesia problems: none Results Review: All pre-operative results and documents have been reviewed as part of the pre-operative evaluation. [facility] Past Medical History Medical History Chronic acquired lymphedema History of cervical cancer Treated with radiation therapy and chemotherapy with complications including chronic lymphedema, and 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 lva Morbid obesity Surgical History Surgical History History of section due to breech presentation History of cholecystectomy History of renal stent History of tonsillectomy Ureteral stricture, left status post resection with reimplantation of the ureter May 2016 Family History Family History Mother Breast cancer Cerebrovascular accident Diabetes mellitus Heart disease Father Cerebrovascular accident Social History Social History Social History: she is . she works at [employer] in [place]. she Has 2 children. she is a lifelong nonsmoker. Primary care physician: Dr. 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 Gender identity (if verbalized by the patient): Female Sexual Orientation (if Verbalized by the Patient): Straight or Heterosexual Spiritual care concerns: No Anes - Eval Final PreProcedure Day of Procedure 10/20/23 06:56 Patient weight: obese Heart: regular rate and rhythm Lungs: clear to auscultation Airway: Mallampati scale class II Neurological: alert and oriented Last oral intake: >/= 8 hours ASA classification: III Emergent: no Anesthetic plan: proceed Anesthesia type and monitoring: general LMA and standard monitoring Results Review: All pre-operative results and documents have been reviewed as part of the pre-operative evaluation. HTN, hyperlipidemia, hypothyroidism, CKD w GFR 19. Informed Con
[2023-10-20] MEDS: LACTATED RINGERS 1,000 ML 30 ML IV CONT (07:20)
[2023-10-20] MEDS: SCOPOLAMINE 1 MG PATCH 1 PATCH TRANSDERM (07:21)
[2023-10-20] MEDS: ceFAZolin 2 GM/D5W 50 ML 2 GM/50 ML BAG IVPB (07:24)
[2023-10-20] MEDS: LIDOCAINE HCL 2% GEL UROJET 10 ML PKG MUCOUS MEM (07:44)
--- NOTE | 2023-10-20 08:34 | W.PM.PROC2 ---
Procedure Note - Detailed Date of Procedure 10/20/23 Pre-op Diagnosis Hydronephrosis, Retroperitoneal fibrosis Post-op Diagnosis Same Procedure Performed cystoscopy, bilateral retrograde pyelography, left ureteroscopy, bilateral ureteral stent placement Surgeon Karl Harden MD Anesthesia General Description of Procedure Patient is brought to the operative suite where she has prepped draped in routine sterile fashion while in a dorsal lithotomy position.? Twenty-one F rigid cystoscope was placed in the bladder.? Each stent is grasped and brought to the external urethral meatus.? A 0.035 in glidewire was advanced through each stent into the renal pelvis.? Retrograde pyelography is undertaken with an angiographic catheter to insure appropriate positioning.? New 6F variable length bilateral ureteral stents were placed with the proximal coil in the renal pelvis and the distal coil in the bladder.?? Again, I had a bit of difficulty visually the left ureteral stent so I performed rigid cystoscopy with retrograde pyelography to ensure appropriate intubation of the ectopic left ureteral orifice near the dome of the bladd (previous left ureteral reimplant).? It should be noted that her current stents had minimal encrustation at the 7 month interval.? Scopes and wires removed she was taken recovery room good condition. Pathology None sent Complications No immediate complications Condition Stable
--- NOTE | 2023-10-20 08:56 | SUR.PHASEI ---
0855: simple mask removed.
== END 2023-10-20 09:52 | disposition home or self-care (01) ==
PROVIDERS: PCP Family Medicine; Visit Provider Urology
PROC: (CPT 52352; principal; 2023-10-20 07:30)
DX: N13.30 Unspecified hydronephrosis (principal); K66.8 Other specified disorders of peritoneum; I10 Essential (primary) hypertension; E78.5 Hyperlipidemia, unspecified; E03.9 Hypothyroidism, unspecified; Z85.41 Personal history of malignant neoplasm of cervix uteri; Z92.21 Personal history of antineoplastic chemotherapy; Z92.3 Personal history of irradiation; E66.01 Morbid (severe) obesity due to excess calories; Z68.41 Body mass index [BMI] 40.0-44.9, adult
CPT/HCPCS: 52332; 74420; A9270; C1758; C1769; C2617; J0690; J1100; J2250; J2371; J2405; J2704; J3010; J7120; Q9966

== ENCOUNTER 2024-06-11 09:23 | Outpatient (CLI) | payer OTHER, SELFPAY ==
--- NOTE | 2024-06-11 09:40 | ECG_ITS ---
Test Date: 2024-06-11 09:48:23 Measurements Intervals Wheeler Rate: 75 P: 64 OR: 186 QRS: -36 QRSD: 133 T: 18 QT: 391 QTc: 437 Interpretive Statements SINUS RHYTHM MARKED LEFT AXIS DEVIATION [QRS AXIS < -30] LEFT BUNDLE BRANCH BLOCK [120+ ms QRS DURATION, 80+ ms Q/S IN V1/V2, 85+ ms R IN I/aVL/V5/V6] WARNING: DATA QUALITY MAY AFFECT INTERPRETATION No previous ECG available for comparison Electronically Signed On 06-11-2024 21:50:22 [employer] by Tracy Diane M.D.
[2024-06-11 10:27] LABS: Anion Gap 9 mmol/L (4-12); Blood Urea Nitrogen 32 mg/dL (7-17); Calcium 9.3 mg/dL (8.4-10.2); Carbon Dioxide 27 mmol/L (22-30); Chloride 101 mmol/L (98-107); Estimated Glomerular Filt Rate 25; Glucose 111 mg/dL (65-110); Sodium 137 mmol/L (137-145)
== END 2024-06-11 09:24 | disposition home or self-care (01) ==
LOC: ANHSURGERY 09:26
PROVIDERS: Anesthesiology; PCP Family Medicine; Visit Provider Urology
DX: E78.5 Hyperlipidemia, unspecified (principal); I10 Essential (primary) hypertension; Z01.818 Encounter for other preprocedural examination
CPT/HCPCS: 36415; 80048; 93005

== ENCOUNTER 2024-06-14 01:01 | Day surgery (SDC) | payer OTHER, SELFPAY ==
[2024-06-05 10:42] VITALS: BMI 40.7
--- NOTE | 2024-06-05 10:48 | PC.NURSE ---
Report to the Outpatient Waiting Room, entrance under the green pavilion located off [facility], at time __6:00 am on date __, [phone] . Planned Procedure Time: _7:30am .? Time changes happen often and if your time is changed the preop area will call you the afternoon before. - You and your visitor will be asked to self-screen and do not enter if you have any COVID symptoms. Please call surgeon if you need to reschedule. - A mask is optional within the hospital at this time. Patients may have clear liquids (water, carbonated beverages, clear teas, apple juice) until 3 hours prior to surgery with a maximum of 20 ounces. - No food from midnight until time of surgery and no smoking. This includes no chewing gum, candy or mints. Take only the following medications with a SIP of water on the morning of surgery: Synthroid(Levothyroxine) DO NOT STOP ANY OF YOUR OTHER PRESCRIPTION MEDICATIONS PRIOR TO SURGERY EXCEPT THE FOLLOWING Medications to discontinue per physician Do not take your centrum silver for three days prior to surgery. Last dose on: 06-10-2024. Please hold the morning of: lisinopril, atorvastatin, hydrochlorothiazide, furosemide. You may take your evening antibiotic, cephalexin, the night before. Please no make-up, nail icelandic, hairspray, perfume, deodorant, or body powder the day of surgery.? No jewelry (including any body piercings) or valuables the day of surgery, leave them at home.? Please take a shower or bath the night before, or the morning of, surgery with an antibacterial soap.? Wear comfortable, loose fitting clothing.? - Jewelry must be removed prior to entering the operating room.? Rings and piercings that are not removed may be cut off. - The hospital will not accept responsibility for valuables.? - Please leave all valuables, including medications, at home the day of surgery. If you are going home after surgery, a licensed sweeper driver must drive you home.? - NO public transportation without another adult if you receive anesthesia. - We recommend that an adult stay with you for 24 hours following discharge. - We also recommend that you do not drive, make important decision, drink alcoholic beverages, or take any drugs that were not prescribed by your health care provider for at least 24 hours after your discharge time. . Follow any additional instructions given to you from your surgeon. Telephone instructions given to Raquel (patient) and asked if any additional questions and then verbalized understanding. Patient advised to call surgeon office or pre surgery nurse liaison [phone] if any additional questions.
--- NOTE | 2024-06-08 16:54 | PM.HPGS ---
History of Present Illness History of Present Illness Consent: Risks, benefits, and alternatives have been discussed and questions answered. Patient agrees to proceed with procedure. 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 This is managed with chronic indwelling ureteral stents which are changed periodically. The stents were last changed on 10/10/2023. She presents today for cystoscopy with bilateral ureteral stent exchange. She is aware of the risks including hematuria, infection and other things. 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 lva Morbid obesity Surgical History Surgical History History of section due to breech presentation History of cholecystectomy History of renal stent History of tonsillectomy Ureteral stricture, left status post resection with reimplantation of the ureter May 2016 Family History Family History Mother Breast cancer Cerebrovascular accident Diabetes mellitus Heart disease Father Cerebrovascular accident Social History Social History Social History: she is . she works at [employer] in [employer] she Has 2 children. she is a lifelong nonsmoker. Primary care physician: Dr. Orozco Code status: Full code Smoking status: Never smoker Second hand tobacco smoke exposure: No Alcohol intake: current Drinks per week: 1 Alcohol use details: very rare. 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 Gender identity (if verbalized by the patient): Female Sexual Orientation (if Verbalized by the Patient): Straight or Heterosexual Spiritual care concerns: No Meds Home Medications and Allergies Home Medications ?Medication ?Instructions ?Recorded ?Confirmed ?Type levothyroxine 50 mcg tablet 50 mcg PO DAILY 01/05/20 06/05/24 History (Synthroid) Centrum Silver 1 tab-cap PO DAILY 03/11/21 06/05/24 History atorvastatin 10 mg tablet 10 mg PO DAILY 03/11/21 06/05/24 History cephalexin 250 mg capsule 250 mg PO HS 03/11/21 06/05/24 History hydrochlorothiazide 12.5 mg tablet 12.5 mg PO DAILY 03/11/21 06/05/24 History lisinopril 20 mg tablet 20 mg PO DAILY 02/25/23 06/05/24 History furosemide 20 mg tablet 20 mg PO .qd 06/05/24 06/05/24 History Allergies Allergy/AdvReac Type Severity Reaction Status Date / Time Sulfa (Sulfonamide AdvReac Intermediate NAUSEA Verified 06/05/24 10:47 Antibiotics) Exam Const: General: no acute distress Resp: Effort & Inspection: normal respiratory effort GI: Inspection: non-distended GI Palp: No abdominal tenderness and No Guarding due to palpation present (GI) Auscultation: normal bowel sounds Assessment and Plan Assessment and plan (1) Retroperitoneal fibrosis: Code(s): N13.5 - Crossing vessel and stricture of ureter without hydronephrosis Status: Acute Assessment and Plan: Cystoscopy, bilateral ureteral stent exchange
[2024-06-14] VITALS (7 sets, daily range): BP systolic 111–152; BP diastolic 60–90; PULSE 72–97; RESP 14–18; TEMP 36.3–36.7; O2SAT 96–100
--- NOTE | ~2024-06-14 | XR_ITS ---
EXAMINATION: XR retrograde pyelo w/stent BI DATE: 06/14/2024 07:58 INDICATION: Bilateral internal ureteral stent exchange TECHNIQUE: Fluoroscopic images from a bilateral internal ureteral stent exchange are submitted for re view. 61 seconds of fluoroscopy of fluoroscopy time. 81 fluoroscopic images. FINDINGS: There is bilateral double-J internal ureteral stent projecting in expected position, with proximal Co pe loop at the level of the renal pelvis and distal loop in the pelvis within the bladder lumen. IMPRESSION: 1. Bilateral internal ureteral stent exchange. Please refer to real-time procedural findings for de tails. Reviewed, dictated and finalized at location A. AZZO GRINDER IMPRESSION: 1. Bilateral internal ureteral stent exchange. Please refer to real-time proc edural findings for details.
--- NOTE | 2024-06-14 06:23 | WPDHPUPDATE1 ---
History and Physical Update Update Date/Time: 06/14/24 06:23 History and Physical has been reviewed, including an updated exam of the patient. There are NO changes in the patient's condition. Risks, benefits, and alternatives have been discussed and questions answered. Patient agrees to proceed with procedure.
[2024-06-14] MEDS: LACTATED RINGERS 1,000 ML 30 ML IV CONT (06:30)
[2024-06-14] MEDS: SCOPOLAMINE 1 MG PATCH 1 PATCH TRANSDERM (06:30)
--- NOTE | 2024-06-14 07:01 | P.PNAN_ITS ---
Anes - Initial Pre Proc Eval Procedure: Operation Date: 06/14/24 07:30 Proposed Procedures p Cystoscopy, Bilateral Ureteral Stent Exchange - Karl Harden MD Date/Time: 06/14/24 07:01 Surgeon: Karl Harden MD Pre Op Diagnosis: retroperitoneal, bilateral hydronephrosis Patient Data Age: 59 Gender: F Height: 1.65 m Weight: 111.1 kg Allergies Allergy/AdvReac Type Severity Reaction Status Date / Time Sulfa (Sulfonamide AdvReac Intermediate NAUSEA Verified 06/05/24 10:47 Antibiotics) Home Medications ?Medication ?Instructions ?Recorded ?Confirmed ?Type levothyroxine 50 mcg tablet 50 mcg PO DAILY 01/05/20 06/05/24 History (Synthroid) Centrum Silver 1 tab-cap PO DAILY 03/11/21 06/05/24 History atorvastatin 10 mg tablet 10 mg PO DAILY 03/11/21 06/05/24 History cephalexin 250 mg capsule 250 mg PO HS 03/11/21 06/05/24 History hydrochlorothiazide 12.5 mg tablet 12.5 mg PO DAILY 03/11/21 06/05/24 History lisinopril 20 mg tablet 20 mg PO DAILY 02/25/23 06/05/24 History furosemide 20 mg tablet 20 mg PO .qd 06/05/24 06/05/24 History Patient hx anesthesia problems: post op nausea/vomiting (scopolamine patch ordered. ) Family hx anesthesia problems: none Results Review: All pre-operative results and documents have been reviewed as part of the pre- operative evaluation. [facility] Past Medical History Medical History Hyperlipidemia Lymph node disorder has had lymph nodes removed from upper chest and placed to right lower extremity . 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 she works at [employer] in [employer]. she Has 2 children. she is a lifelong nonsmoker. Primary care physician: Dr. Orozco Code status: Full code Smoking status: Never smoker Second hand tobacco smoke exposure: No Alcohol intake: current Drinks per week: 1 Alcohol use details: very rare. 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 Gender identity (if verbalized by the patient): Female Sexual Orientation (if Verbalized by the Patient): Straight or Heterosexual Spiritual care concerns: No Anes - Eval Final PreProcedure Day of Procedure 06/14/24 07:01 Patient weight: morbidly obese Heart: regular rate and rhythm Lungs: clear to auscultation Airway: Mallampati scale class II Neurological: alert and oriented Last oral intake: >/= 8 hours ASA classification: III Emergent: no Anesthetic plan: proceed Anesthesia type and monitoring: general LMA and standard monitoring Results Review: All pre-operative results and documents have been reviewed as part of the pre- operative evaluation. HTN, hyperlipidemia, hypothyroid, BMI 40, pt w CKD GFR 25 at this time. Informed Consent: The patient's anesthetic plan and its attendant risks and benefits were discussed with the patient/family/POA. Questions were solicited and answers provided to the satisfaction of the patient/family/POA.
[2024-06-14] MEDS: ceFAZolin 2 GM/D5W 50 ML 2 GM/50 ML BAG IVPB (07:18)
--- NOTE | 2024-06-14 07:48 | W.PM.PROC2 ---
Procedure Note - Detailed Date of Procedure 06/14/24 Pre-op Diagnosis Retroperitoneal fibrosis, bilateral hydronephrosis Post-op Diagnosis Same Procedure Performed Cystoscopy, bilateral retrograde pyelography, bilateral ureteral stent exchange Surgeon Karl Harden MD Anesthesia General Description of Procedure Patient is brought to the operative suite where she has prepped draped in routine sterile fashion while in a dorsal lithotomy position.? Twenty-one F rigid cystoscope was placed in the bladder.? Each stent is grasped and brought to the external urethral meatus.? A 0.035 in glidewire was advanced through each stent into the renal pelvis.? Retrograde pyelography is undertaken with an angiographic catheter to insure appropriate positioning.? New 6F variable length bilateral ureteral stents were placed with the proximal coil in the renal pelvis and the distal coil in the bladder.?? Retrograde pyelography was used to ensure appropriate intubation of the ectopic left ureteral orifice near the dome of the bladder (previous left ureteral reimplant).? It should be noted that her current stents had minimal encrustation at the month interval.? Scopes and wires removed she was taken recovery room good condition. Drains Yes
--- NOTE | 2024-06-14 08:59 | SUR.PHASEII ---
0840: REady for dc. waiting on ride.
--- OUTSIDE RECORDS SUMMARY | 2024-06-21 00:34 | XMS_ITS ---
Author Organization Unknown Medications Medication Instructions Effective Dates (start - stop) Status hydrochlorothiazide 12.5 MG Oral Tablet - Completed amoxicillin 500 MG Oral Tablet 2023-10-17 T00:00:00Z - Completed cephalexin 250 MG Oral Capsule 2023-08-03 T00:00:00Z - Completed lisinopril 20 MG Oral Tablet [id number] 0:00:00Z - Completed cephalexin 250 MG Oral Capsule 2023-02-13 T00:00:00Z - Completed cephalexin 500 MG Oral Tablet 2023-03-29 00:00:00Z - Completed cephalexin 250 MG Oral Capsule 2023-04-26 T00:00:00Z - Completed aspirin 81 MG Delayed Releas e Oral Tablet - Completed cephalexin 250 MG Oral Capsule 2023-03-17 T00:00:00Z - Completed acetaminophen 325 MG / oxyco done hydrochloride 5 MG Oral Tablet - Comple lucretia diazepam 5 MG Oral Tablet [id number] 0:00Z - Completed lisinopril 20 MG Oral Tablet [id number] 0:00:00Z - Completed furosemide 20 MG Oral Tablet [id number] 0:00:00Z - Completed ciprofloxacin 500 MG Oral Tablet 00:00:00Z - Completed cephalexin 250 MG Oral Capsule 2023-09-07 T00:00:00Z - Completed cephalexin 250 MG Oral Capsule 2023-07-06 T00:00:00Z - Completed amoxicillin 500 MG Oral Tablet 2023-08-23 T00:00:00Z - Completed oxycodone hydrochloride 5 MG Oral Tablet - Completed aspirin 325 MG Oral Tablet [id number]: 00:00Z - Completed cephalexin 250 MG Oral Capsule 2023-10-06 T00:00:00Z - Completed cephalexin 250 MG Oral Capsule 2023-12-11 T00:00:00Z - Completed atorvastatin 10 MG Oral Tablet 2023-09-07 T00:00:00Z - Completed levothyroxine sodium 0.05 MG Oral Tablet - Completed levothyroxine sodium 0.05 MG Oral Tablet - Completed furosemide 20 MG Oral Tablet [id number] 0:00:00Z - Completed lisinopril 20 MG Oral Tablet [id number] 0:00:00Z - Completed levothyroxine sodium 0.05 MG Oral Tablet - Completed lisinopril 20 MG Oral Tablet [id number] 0:00:00Z - Completed furosemide 20 MG Oral Tablet [id number] 0:00:00Z - Completed furosemide 20 MG Oral Tablet [id number] 0:00:00Z - Completed amoxicillin 500 MG Oral Tablet 2023-10-06 T00:00:00Z - Completed levothyroxine sodium 0.05 MG Oral Tablet - Completed valacyclovir 1000 MG Oral Tablet 00:00:00Z - Completed atorvastatin 10 MG Oral Tablet 2023-12-04 T00:00:00Z - Completed hydrochlorothiazide 12.5 MG Oral Tablet - Completed hydrochlorothiazide 12.5 MG Oral Tablet - Completed lisinopril 20 MG Oral Tablet [id number] 0:00:00Z - Completed ciprofloxacin 500 MG Oral Tablet 00:00:00Z - Completed amoxicillin 500 MG Oral Tablet 2023-04-12 T00:00:00Z - Completed furosemide 20 MG Oral Tablet [id number] 0:00:00Z - Completed nitrofurantoin, macrocrystal s 25 MG / nitrofurantoin, monohydrate 75 MG Oral Capsule - Completed amoxicillin 500 MG Oral Tablet 2023-09-28 T00:00:00Z - Completed cephalexin 250 MG Oral Capsule 2023-01-03 T00:00:00Z - Completed acetaminophen 325 MG / hydro codone bitartrate 5 MG Oral Tablet - Completed hydrochlorothiazide 12.5 MG Oral Tablet - Completed ibuprofen 600 MG Oral Tablet [id number] 0:00:00Z - Completed cephalexin 250 MG Oral Capsule 2023-06-05 T00:00:00Z - Completed ciprofloxacin 500 MG Oral Tablet T00:00:00Z - Completed cephalexin 250 MG Oral Capsule 2023-11-14 T00:00:00Z - Completed atorvastatin 10 MG Oral Tablet 2023-02-21 T00:00:00Z - Completed nitrofurantoin, macrocrystal s 25 MG / nitrofurantoin, monohydrate 75 MG Oral Capsule - Completed amoxicillin 500 MG Oral Tablet 2023-11-28 T00:00:00Z - Completed Patient Care team information Name Category Status Period Participants - - Proposed period not known -
--- OUTSIDE RECORDS SUMMARY | 2024-06-21 00:34 | XMS_ITS | Continuity of Care Document ---
Author Organization [facility] Address [address] [place] [address] Phone Care Team Providers Care Supervisor Sewer Maintenance Name Role Phone Bruce Salas MD Unavailable Unavailable Advance Directives Directive Yes / No Effective Date File Name No Information Encounters Encounter Description Practice Location Reason(s) For Visit Diagnoses Date Provider Providers Copied on Encounter [facility], [address], [place], [place], [id number], tel:[phone] [facility] No Information Josue Barrera. [address] [place] [address], [id number], . tel:[phone] Referring Provider: Rolando Whipple, [address] [place] [address], [place], [address]. tel:[phone] Family History Family Member Type Diagnosis Age At Onset No Information Payers Payer name Insurance type Covered republican ID Authoriza tirenetta(s) [employer] OPEN ACCESS I II III CI [id number] Social History Type Description Quantity Date [...]
--- OUTSIDE RECORDS SUMMARY | 2024-06-21 00:34 | XMS_ITS | Clinical Summary ---
Author Organization [facility] al Address [address] [place] [address] Care Team Providers Care Desk Monitor Name Role Phone Rolando Whipple MD Primary Care Provider [phone] Allergies Active Allergy Reactions Criticality Noted Date Comments Sulfa (Sulfonamide Antibiotics) Vomiting Low Medications levothyroxine (SYNTHROID) 50 mcg tabletIndicatio ns:hypothyroidi sm Take 1 tablet (50 mcg total) by mouth homogenizer operator before breakfast 9 Active atorvastatin (LIPITOR) 10 mg tabletIndicatio ns:hyperlipidem ia Take 1 tablet (10 mg total) by mouth every morning 1 Active multivit-min/ir on/folic/lutein (CENTRUM SILVER WOMEN ORAL)Indication s:General health Take 1 tablet by mouth every morning Active hydroCHLOROthia zide (HYDRODIURIL) 12.5 mg tabletIndicatio ns:Edema,hypert ension Take 1 tablet (12.5 mg total) by mouth daily before breakfast 2 Active furosemide (LASIX) 20 mg tabletIndicatio ns:Edema,hypert ension Take 1 tablet (20 mg total) by mouth homogenizer operator before breakfast 3 Active lisinopriL (PRINIVIL,ZESTR IL) 20 mg tabletIndicatio ns:hypertension Take 1 tablet (20 mg total) by mouth homogenizer operator before breakfast 3 Active ibuprofen (ADVIL,MOTRIN) 600 mg tablet Take 1 tablet (600 mg total) by mouth every 6 (six) hours as needed for pain 30 tablet 3 Active aspirin 81 mg enteric coated tablet Take 1 tablet (81 mg total) by mouth daily 3 Active cephalexin (KEFLEX) 250 mg capsule TAKE 1 CAPSULE BY MOUTH EVERYDAY AT BEDTIME 4 Active ciprofloxacin (CIPRO) 500 mg tablet Take 1 tablet (500 mg total) by mouth 2 (two) times a day Active Active Problems Problem Noted Date Diagnosed Date 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 Malignant neoplasm of cervix ([facility]/HCC) 9 Overview (01/17/2019): Added automatically from request for surgery [id number] Lymphedema of extremity 01/17/2019 Overview (01/17/2019): Added automatically from request for surgery [id number] Malignant neoplasm of overlapping sites of cervi x 01/17/2019 Overview (01/17/2019): Added automatically from request for surgery [id number] Lymphedema 02/13/2014 Female stress incontinence 07/12/2013 Stress incontinence in female 07/12/2013 Urinary dribbling 07/12/2013 Dribbling of urine 07/12/2013 Mixed stress and urge urinary incontinence 07/12 Vaginal atrophy 07/12/2013 Dysuria 12/15/2012 Neoplastic disease 06/22/2011 Adenocarcinoma of cervix ([facility]/HCC) 06/16/2011 Immunizations Name Administration Dates Next Due [employer] (J&J) SARS-CoV-2 Vaccination 08/07/2020 Surgical History Surgery Date Site/Laterality Comments GALLBLADDER SURGERY 05/30/1996 - 05/29/1997 Gallbladder Surgery - (Added by TW Conv) [place] DELIVERY ONLY 05/30/1994 - 05/29/1995 Section - (Added by TW Conv) VULVA SURGERY 05/30/2018 - 05/29/2019 Vulvar Surgery - (Added by TW Conv) KIDNEY SURGERY unknown date BREAST BIOPSY 08/25/2020 Left TONSILLECTOMY 05/30/2004 - 05/29/2005 Tonsillectomy - (Added by TW Conv) URETERAL STENT PLACEMENT 09/27/2022 - 10/27/2022 stent exchanges every 6 months VULVA SURGERY 05/30/2020 - 05/29/2021 Medical History Medical History Date Comments Personal history of malignan t neoplasm of cervix uteri Cervical Cancer - (Added by TW Conv) Cervical cancer (CMS/HCC) (HCC) Status post radiation therapy la st in 2007 Status post chemotherapy last in 2007 PONV (postoperative nausea and vomiting) Improved with scopolamine patch and additional anti-emetics Hypertension Hypothyroidism Family History Medical History Relation Name Comments Heart disease Brother 1 Family history of cardiac disorder - (Added by TW Conv) Diabetes Brother 2 Family history of diabetes mellitus - (Added by TW Conv) Stroke Father Family history of cerebrovascular accident (CVA) - (Added by TW Conv) Arthritis Mother Family history of arthritis - (Added by TW Conv) Breast cancer Mother Breast Cancer - (Added by TW Conv) Diabetes Mother Family history of diabetes mellitus - (Added by TW Conv) Heart disease Mother Family history of cardiac disorder - (Added by TW Conv) Hypertension Mother Family history of hypertension - (Added by TW Conv) Anesthesia problems Neg Hx Relation Name Status Comments Brother 1 Brother 2 Father Mother Social History Tobacco Use Types Packs/Day Years Used Date Smoking Tobacco: Never Smokeless Tobacco: Never Tobacco Cessation:Counseling Given: No Alcohol Use Standard Drinks/Week Comments Yes 0 (1 standard drink = 0.6 oz pur e alcohol) drinks rarely AUDIT-C Answer Date Recorded Q1: How often do you have a drink containing alc ohol? Monthly or less 03/03/2023 Q2: How many drinks containi ng alcohol do you have on a typical day when you are drinking? 1 or 2 03/03/2023 Q3: How often do you have si x or more drinks on one occasion? Never 03/03/2023 Personal Safety Answer Date Recorded Have you ever been in or are you currently in a harmful physical or emotional relationship or is someone making you feel afraid or unsafe? Denies 03/03/2023 Comments No Sex and Gender Information Value Date Recorded Sex Assigned at Not on file Legal Sex Female 9:32 AM SPECIALTY THERAPIST Gender Identity Not on file Sexual Orientation Straight 04/07/2021 8: 55 AM SPECIALTY THERAPIST Obstetrics History Para Term AB IAB SAB Ectopic Multiple Livin g Live Births 3 2 2 1 2 Date Outcome GA Total Labor Labor/2nd/3rd Weight Sex Type Anes PTL Lucinda A1 A5 Name Clin Term Term AB Last Filed Vital Signs Vital Sign Reading Time Taken Comments Blood Pressure 141/85 02/27/2024 3:22 PM CDT Pulse 94 02/27/2024 3:22 PM CDT Temperature 36.7 ??C (98.1 ??F) 02/27/2024 3:22 PM CD T Respiratory Rate 16 02/27/2024 3:22 PM CDT Oxygen Saturation 96% 02/27/2024 3:22 PM CDT Inhaled Oxygen Concentration - - Weight 115.9 kg (255 lb 9.6 oz) 02/27/2024 3:22 PM CDT Height 165.1 cm (5' 5 ) 08/08/2023 2:21 PM CDT Body Mass Index 42.53 08/08/2023 2:21 PM CDT Plan of Treatment Health Maintenance Due Date Last Done Comments Colon Cancer Screening-Colonoscopy 1965 Depression Screening 1965 Hepatitis C Screening 1965 DTaP/Tdap/Td Vaccine (1 - Tdap) 1976 Hepatitis B Screening 1983 Regular Well Visit/Exam 18-64 1983 Zoster Vaccine (1 of 2) 2015 Covid-19 Vaccine (2 - season) 2024 08/07/2020 Influenza Vaccine (#1) 2024 Breast Cancer Screening-Mammogram 02/26/2025 02/27/2024, 02/01/2023, 10/08/2021, Additional history exists Cervical Cancer Screening 02/26/20252023, 06/23/2022, 06/20/2020 Pneumococcal vaccine <65 Aged Out No longer eligible based on patient's age to complete this topic Medical Devices Implanted Type Area Corporate Banking Officer Device Identifier Shelf Expiration Date Model / Serial / Lot Dep-Xplora Sid [place] 2mm Ring Pin Ultrasonic Doppler 20mhz Instrument Setter Anastomosis Latex Free 2752 - [id number] Implanted:Qty: 1 on 10/04/2022 by Huang Goyal MD at [facility] Other - see comments Right: Leg Dep-Xplora Sid [id number] 01/22/2027 [id number] / / [id number]- [id number] Dep-Xplora Allian [place] Cartridge Micro Clip Internal Titanium Hemostatic [id number] - [id number] Implanted:Qty: 2 on 10/04/2022 by Huang Goyal MD at [facility] Right: Leg [employer] Allian 11/26/2026 [id number] / / [id number] Synovis WatchFrog Allian Hemoclip Superfine Clip Internal [id number] - [id number] Implanted:Qty: 1 on 10/04/2022 by Huang Goyal MD at [facility] Right: Leg Synovis Micro Monitoring Division Allian 11/26/2026 [id number] / / [id number] Synovis Watch[employer] Allian Hemoclip Superfine Clip Internal [id number] - [id number] Implanted:Qty: 2 on 10/04/2022 by Huang Goyal MD at [facility] Right: Leg Syn[employer]is [employer] Allian 01/27/2027 [id number] / / [id number] LabStyle Innovationss WatchFrog Allian [place] Cartridge Micro Clip Internal Titanium Hemostatic [id number] - [id number] Implanted:Qty: 1 on 10/04/2022 by Huang Goyal MD at [facility] Right: Leg Synovis [employer] Allian 11/26/2026 [id number] / / [id number] Procedures Procedure Name Priority Date/Time Associated Diagnosis Comments PAP AND HIGH RISK HPV, REFLEX TO GENOTYPING Routine 02/27/2024 3:56 PM CDT Malignant neoplasm of cervix, unspecified site (HCC) SCREENING MAMMOGRAM BILATERAL [place] Schedule Routine, Read Routine (OP Routine) 02/27/2024 2:07 PM CDT Screening mammogram, encounter for from Last 3 Months or Most Recently Relevant to Health Maintenance Results * (ABNORMAL) Pap and High Risk HPV and Genotyping (Cytology Component) (02/27/2024 3:56 PM CDT) Thin prep (Pap test) 02/27/2024 3:56 PM CDT 02/27/2024 5:40 PM CDT Narrative PATHOLOGY [facility] - 03/07/2024 2:39 PM CDT EPIC results best viewed via link to PDF [facility] [place] [address] Note to Patients: This report may contain a detailed description of human tissue sent by a health care provider to the laboratory for pathologic evaluation. The content of this report is essential for diagnosis and may provide important critical findings. This information may be unfamiliar to patients to review without a medical professional present. It is advised that the patient review this report in the presence of a health care provider who can answer questions and explain the details. CYTOPATHOLOGY REPORT FINAL Patient Name: ??RAQUEL NOVA Gender: ??F : ??1965 (Age: 58) Address: ??[address] [place] [address] ??[id number] Hospital #: ??[id number] Service: ??FACILITY MAINTENANCE TECHNICIAN Location: ?? Patient Type: ??[facility] SPECIMEN Taken: ??02/27/2024 Received: ??02/27/2024 Accessioned: ??02/28/2024 Reported: ??03/07/2024 Physician(s): ??Valeria Dallas M.D. ?? FINAL INTERPRETATION SOURCE OF SPECIMEN ?Liquid based Thin Prep pap with HPV: STATEMENT OF ADEQUACY ?- Satisfactory for evaluation, vaginal smear GENERAL CATEGORIZATION: ?- Negative for squamous intraepithelial lesion or malignancy ? INTERPRETATION: ?- Negative for squamous intraepithelial lesion or malignancy Comments HPV HR 16 vaginal- Negative ? HPV HR 18 vaginal- Negative ? HPV HR non 16/18 vaginal- Negative Comment: The following Other High Risk HPV types were not detected: 31, 33, 35, 39, 45, 51, 52, 56, 58, 59, 66, and 68 ADDITIONAL INFORMATION Testing was performed using the kerrie HPV assay ([employer] This test has been modified from the firer bisque kiln's instructions. Its performance characteristics were determined by [facility] in a manner consistent with CLIA requirements. This test has not been cleared or approved by the U.S. Food and Drug Administration. Test Performed by: [address] [address] Patient Relations Representative: Crhistoph Vizcaino M.D. Ph.D.; CLIA# [id number] av/03/07/2024 13:09 By this signature, I attest that the above diagnosis is based upon my personal examination of the slides(and/or other material indicated in the diagnosis). ? Jam Zimmerman M.D. Report Electronically Reviewed and Signed Out By Jam Zimmerman M.D. 03/07/2024 14:39:17 Branden Chávez MS, CT(ASCP)PA Cervicovaginal Cytology (Pap Test) Disclaimer: The Pap test is a screening test used to detect cervical cancer and its precursors; it is not a diagnostic procedure. False negative and false positive results do occur. Pap test results should be interpreted in the context of pertinent clinical information and biopsy results as indicated. [facility] Clinical Laboratory Improvement Amendments (CLIA) mandate that cytologic and histologic results be correlated for laboratory quality consultant & improvement standards. ??FOR ALL HIGH-GRADE CASES we request submission of follow-up histological material and/or reports that have not been previously provided so that we may fulfill said required standards. ?? Gross Description A. ??Liquid based Thin Prep pap with HPV: ?Vaginal - Screening ThinPrep Clinical Diagnosis and History Last Menstrual Period: Post xrt The patient is a 58 year old female with s/p chemo xrt for cervical cancer in 2007, ??malignant neoplasm of cervix, unspecified site, Report Images and scanned documents, if included only viewable in PDF version The performance characteristics of some immunohistochemical stains, in-situ hybridization and fluorescence in-situ hybridization tests and immunophenotyping by flow cytometry cited in this report (if any) were determined by the Surgical Pathology Department at [facility] as part of an ongoing quality technician program and in compliance with federally mandated regulations drawn from the Clinical Laboratory Improvement Act of 1988 (CLIA '88). ??Some of these tests rely on the use of analyte specific reagents and are subject to specific labeling requirements by the US Food and Drug Administration. ??Such diagnostic tests may only be performed in a facility that is certified by the Department of Health and Human Services as a high complexity laboratory under CLIA '88. ??The FDA has determined that such clearance or approval is not necessary. ??This test is used for clinical purposes. ??It should not be regarded as investigational or for research. ??Nevertheless, federal rules concerning the medical use of analyte specific reagents require that the following disclaimer be attached to the report: This test was developed and its performance characteristics determined by the Surgical Pathology Department of [facility]. ??It has not been cleared or approved by the U. S. Food and Drug Administration. [facility] Wayne Dallas MD LAB CYTOLOGY ORDERABLES Final Result PATHOLOGY [facility] 3rd Floor [place], [place] [phone] * Screening Mammogram Bilateral W [place] (02/27/2024 2:07 PM CDT) Anatomical Region Laterality Modality Breast Bilateral Mammography Narrative 02/27/2024 5:47 PM CDT Mammogram Technique: Bilateral Digital Breast Tomosynthesis, Bilateral C-view 2D Screening mammogram. ??Views obtained: ??bilateral craniocaudal and bilateral mediolateral oblique. ??Computer Aided Detection was performed. Mammogram Findings: The present examination has been compared to prior imaging studies performed at [facility] on 08/19/2020, 10/08/2021 and 02/01/2023. The breasts are heterogeneously dense, which may obscure small masses. There is no suspicious abnormality in either breast. Impression: There is no mammographic evidence of malignancy. Annual screening mammography is recommended. If supplemental screening is desired, breast MRI would be recommended in this patient with heterogeneously dense breasts. OVERALL FINAL ASSESSMENT: BI-RADS CATEGORY 1: ??Negative. Procedure Note Sangita Curiel MD - 02/27/2024 Mammogram Technique: Bilateral Digital Breast Tomosynthesis, Bilateral C-view 2D Screening mammogram. Views obtained: bilateral craniocaudal and bilateral mediolateral oblique. Computer Aided Detection was performed. Mammogram Findings: The present examination has been compared to prior imaging studies performed at [facility] on 08/19/2020, 10/08/2021 and 02/01/2023. The breasts are heterogeneously dense, which may obscure small masses. There is no suspicious abnormality in either breast. Impression: There is no mammographic evidence of malignancy. Annual screening mammography is recommended. If supplemental screeningis desired, breast MRI would be recommended in this patient with heterogeneously dense breasts. OVERALL FINAL ASSESSMENT: BI-RADS CATEGORY 1: Negative. us Self Screening Mammogram IMG MAMMO PROCEDURES Fi nal Result from Last 3 Months or Most Recently Relevant to Health Maintenance Insurance [facility] [id number] [facility] [id number] [facility] [id number] Advance Directives For more information, please contact: [phone] * Full Code (Latest Code Status on File) Date Activated Date Inactivated Comments 10/04/2022 4:07 PM 10/05/2022 7:55 PM Care Teams Desk Monitor Relationship Specialty Start Date End Date Rolando Whipple MD [address] [place] [address] PCP - General Family Medicine 01/18/24
--- OUTSIDE RECORDS SUMMARY | 2024-06-21 00:34 | XMS_ITS | Referral Summary ---
Author Organization [facility] al Address [address] [place] [address] Care Team Providers Care Men'S Garment Fitter Name Role Phone Rolando Whipple MD Primary Care Provider [phone] Allergies Active Allergy Reactions Criticality Noted Date Comments Sulfa (Sulfonamide Antibiotics) Vomiting Low Medications levothyroxine (SYNTHROID) 50 mcg tabletIndicatio ns:hypothyroidi sm Take 1 tablet (50 mcg total) by mouth label designer before breakfast 9 Active atorvastatin (LIPITOR) 10 [...] 1 tablet (20 mg total) by mouth label designer before breakfast 3 Active lisinopriL (PRINIVIL,ZESTR IL) 20 mg tabletIndicatio ns:hypertension Take 1 tablet (20 mg total) by mouth label designer before breakfast 3 Active ibuprofen (ADVIL,MOTRIN) 600 [...] right hip 03/22/2023 Malignant neoplasm of cervix ([facility]/HCC) 9 Overview (01/17/2019): Added automatically from request for surgery [id number] Lymphedema of extremity 01/17/2019 Overview (01/17/2019): Added automatically from request for surgery [id number] Malignant neoplasm of overlapping sites of cervi x 01/17/2019 Overview (01/17/2019): Added automatically from request for surgery [id number] Lymphedema 02/13/2014 Female stress incontinence 07/12/2013 Stress incontinence in female 07/12/2013 Urinary dribbling 07/12/2013 Dribbling of urine 07/12/2013 Mixed stress and urge urinary incontinence 07/12 Vaginal atrophy 07/12/2013 Dysuria 12/15/2012 Neoplastic disease 06/22/2011 Adenocarcinoma of cervix ([facility]/HCC) 06/16/2011 Immunizations Name Administration Dates Next Due [employer] (J[employer]) SARS-CoV-2 Vaccination 08/07/2020 Social History Tobacco Use Types Packs/Day Years [...] on file Legal Sex Female 9:32 AM LABOR RELATIONS MANAGER Gender Identity Not on file Sexual Orientation Straight 04/07/2021 8: 55 AM LABOR RELATIONS MANAGER Last Filed Vital Signs Vital Sign Reading [...] 08/08/2023 2:21 PM CDT Plan of Treatment Not on file Medical Devices Implanted Type Area Collar Sewer Device Identifier Shelf Expiration Date Model / Serial / Lot Synovis [employer] Allian Thomas 2mm Ring Pin Ultrasonic Doppler 20mhz Warp Tension Tester Anastomosis Latex Free 275 - [id number] Implanted:Qty: 1 on 10/04/2022 by Huang Goyal MD at [facility] Other - see comments Right: Leg Synovis [employer] Allian [id number] 01/22/2027 [id number] / / [id number]- [id number] Synovis [employer] Allian Thomas Cartridge Micro Clip Internal Titanium Hemostatic [id number] - [id number] Implanted:Qty: 2 on 10/04/2022 by Huang Goyal MD at [facility] Right: Leg Synovis Micro Nexamp Allian 11/26/2026 [id number] / / [id number] Synovis [employer] Allian Hemoclip Superfine Clip Internal [id number] - [id number] Implanted:Qty: 1 on 10/04/2022 by Huang Goyal MD at [facility] Right: Leg [employer] Allian 11/26/2026 [id number] / / [id number] [employer] Allian Hemoclip Superfine Clip Internal [id number] - [id number] Implanted:Qty: 2 on 10/04/2022 by Huang Goyal MD at [facility] Right: Leg [employer] Allian 01/27/2027 [id number] / / [id number] [employer] Allian Thomas Cartridge Micro Clip Internal Titanium Hemostatic [id number] - [id number] Implanted:Qty: 1 on 10/04/2022 by Huang Goyal MD at [facility] Right: Leg [employer] Allian 11/26/2026 [id number] / / [id number] Procedures Procedure Name Priority Date/Time Associated [...] CDT 02/27/2024 5:40 PM CDT Narrative PATHOLOGY [facility] - 03/07/2024 2:39 PM CDT EPIC results best viewed via link to PDF [facility] Laboratory [place] [address] Note to Patients: This report may contain [...] Gender: ??F : ??1965 (Age: 58) Address: ??[address] [place], [place] ??[address] Hospital #: ??[id number] Service: ??CREEL CLEANER Location: ?? Patient Type: ??[facility] SPECIMEN Taken: ??02/27/2024 Received: ??02/27/2024 Accessioned: [...] performed using the kerrie HPV assay ([employer] This test has been modified from the insurance underwriter's instructions. Its performance characteristics were determined by [facility] in a manner consistent with CLIA requirements. This test has not been cleared or approved by the U.S. Food and Drug Administration. Test Performed by: [address] [address] Instructor Kindergarten: Christoph Vizcaino M.D. Ph.D.; CLIA# [id number] /03/07/2024 13:09 By this signature, I attest that [...] clinical information and biopsy results as indicated. [facility] Clinical Laboratory Improvement Amendments (CLIA) mandate that cytologic and histologic results be correlated for laboratory senior software quality engineer & improvement standards. ??FOR ALL HIGH-GRADE CASES [...] determined by the Surgical Pathology Department at [facility] as part of an ongoing supervisor type disk quality control program and in compliance with federally mandated [...] determined by the Surgical Pathology Department of [facility]. ??It has not been cleared or approved by the U. S. Food and Drug Administration. [facility] Wayne Dallas MD LAB CYTOLOGY ORDERABLES Final Result PATHOLOGY [facility] 3rd Floor [place], [place] [phone] * Screening Mammogram Bilateral W [place] (02/27/2024 2:07 PM CDT) Anatomical Region Laterality Modality Breast Bilateral Mammography Narrative 02/27/2024 5:47 PM CDT Mammogram Technique: Bilateral Digital Breast Tomosynthesis, Bilateral C-view 2D Screening mammogram. ??Views obtained: ??bilateral craniocaudal and bilateral mediolateral oblique. ??Computer Aided Detection was performed. Mammogram Findings: The present examination has been compared to prior imaging studies performed at [facility] on 08/19/2020, 10/08/2021 and 02/01/2023. The breasts [...] compared to prior imaging studies performed at [facility] on 08/19/2020, 10/08/2021 and 02/01/2023. The breasts [...] Most Recently Relevant to Health Maintenance Insurance [facility] [id number] [facility] [id number] [facility] [id number] Advance Directives For more information, please contact: [phone] * Full Code (Latest Code Status on File) Date Activated Date Inactivated Comments 10/04/2022 4:07 PM 10/05/2022 7:55 PM Care Teams Men'S Garment Fitter Relationship Specialty Start Date End Date Rolando Whipple MD [address] [place] [id number] PCP - General Family Medicine 01/18/24
--- OUTSIDE RECORDS SUMMARY | 2024-06-21 00:34 | XMS_ITS | Clinical Summary ---
Author Organization [facility] Address [address] [place] [address] Care Team Providers Care Rose Grading Supervisor Name Role Phone Bruce Orozco MD Primary Care Provider [phone] Source Comments [facility],non-owned Affiliates and Associated Physician Practices is amultiple site organization consisting of ambulatory clinics and hospital sitesin [place], [place], [place] and [place]. This disclosure is being madepursuant to the Care Everywhere program and may not contain all information available regarding this patient. Last updated 18.[facility] Allergies Active Allergy Reactions Criticality Noted Date Comments Sulfa Drugs Nausea and/or Vomiting Low 03/16/2023 Medications * Be aware that medications may not be up to date on this document. Alwaysverify current medications with the patient. Medication Sig Dispensed Refills Start Date End Date Status Multiple Vitamins-Minerals (CENTRUM SILVER ADULT 50+ PO)Indications:supp lement Take 1 tablet by mouth every morning Hold 5 days pre op Reasons: supplement Active atorvastatin (Lipitor) 10 MG tabletIndications:H yperlipidemia Take 1 tablet by mouth once daily Ok to take day of surgery Reasons: High Amount of Fats in the Blood 02/17/2023 Active furosemide (Lasix) 20 MG tabletIndications:E caroline,Hypertension Take 1 tablet by mouth once daily Hold day of surgery Reasons: Edema, High Blood Pressure Disorder 01/04/2023 Active levothyroxine (Synthroid) 50 MCG tabletIndications:H ypothyroidism Take 1 tablet by mouth daily before breakfast Ok to take day of surgery Reasons: Underactive Thyroid 03/01/2023 Active lisinopril (Prinivil; Zestril) 20 MG tabletIndications:H ypertension Take 1 tablet by mouth once daily Hold day before and day of surgery Reasons: High Blood Pressure Disorder 01/04/2023 Active aspirin EC (Ecotrin) 81 MG tabletIndications:A rthritis,Osteoarthr itis,Pain Take 1 (one) tablet by mouth once daily 30 tablet 03/23/2023 Active hydroCHLOROthiazide (Hydrodiuril) 25 MG tabletIndications:E caroline,Hypertension Take 25 mg by mouth once daily. 12.5 mg once daily Indications: Edema, High Blood Pressure Disorder 03/27/2023 Active oxyCODONE-acetamino phen (Percocet) 5-325 MG tabletIndications:P ain Take 1 tablet by mouth every 6 hours as needed for Pain. Indications: Pain 03/27/2023 Active ciprofloxacin (Cipro) 250 MG tabletIndications:S kin and Skin Structure Infection Take 250 mg by mouth once. Indications: Infection of the Skin and/or Skin Structures 03/31/2023 Active Active Problems Problem Noted Date Diagnosed Date Allergic arthritis of right hip 03/22/2023 Social History Tobacco Use Types Packs/Day Years Used Date Smoking Tobacco: Never Smokeless Tobacco: Never Tobacco Cessation:Counseling Given: Not Answered Alcohol Use Standard Drinks/Week Comments Yes 0 (1 standard drink = 0.6 oz pur e alcohol) occasional OASIS D0700: Social Isolation Answer Da te Recorded Frequency of experiencing loneliness or isolatio n Never 04/06/2023 OASIS A1250: Transportation Answer Date Recorded Lack of Transportation (Medical) No 04/06/2023 Lack of Transportation (Non-Medical) No 04/06/2023 Patient Unable or Declines to Respond No 04/06/2023 OASIS B1300: Health Literacy Answer Edwardo e Recorded Frequency of needing help to read materials from doctor or pharmacy Never 04/06/2023 AUDIT-C Answer Date Recorded Q1: How often do you have a drink containing alc ohol? Monthly or less 03/22/2023 Q2: How many drinks containi ng alcohol do you have on a typical day when you are drinking? 1 or 2 03/22/2023 Q3: How often do you have si x or more drinks on one occasion? Never 03/22/2023 Sex and Gender Information Value Date Recorded Sex Assigned at Not on file Gender Identity Not on file Sexual Orientation Not on file Last Filed Vital Signs Vital Sign Reading Time Taken Comments Blood Pressure 134/76 04/06/2023 11:24 AM HEALTH INFORMATION TECHNOLOGIST Pulse 84 04/06/2023 11:24 AM HEALTH INFORMATION TECHNOLOGIST Temperature 36.3 ??C (97.3 ??F) 04/06/2023 11:[address] Respiratory Rate 17 04/06/2023 11:24 AM HEALTH INFORMATION TECHNOLOGIST Oxygen Saturation 97% 04/06/2023 11:24 AM HEALTH INFORMATION TECHNOLOGIST Inhaled Oxygen Concentration - - Weight 111.1 kg (245 lb) 03/22/2023 6:07 AM CDT Height 165.1 cm (5' 5 ) 03/22/2023 6:07 AM CDT Body Mass Index 40.77 03/22/2023 6:07 AM CDT Plan of Treatment Health Maintenance Due Date Last Done Comments COLOGUARD (AGES 45-75) - COL ON CA SCREENING 1965 COLON MONITORING 1965 COLONOSCOPY - COLON CA SCREENING 1965 CT COLONOGRAPHY - COLON CA SCREENING 1965 Colorectal Cancer Screening 1965 FIT - COLON CA SCREENING 1965 FLEX SIG - COLON CA SCREENING 1965 PAP SMEAR 1965 HIV SCREENING 1980 HEPATITIS C SCREENING 05/10/1983 DTAP/TDAP/TD VACCINES (1 - Tdap) 1984 HEPATITIS B VACCINE (1 of 3 - 19+ 3-dose series) 1984 PNEUMOCOCCAL VACCINE 50+ (1 of 1 - PCV) 2015 ZOSTER VACCINE (1 of 2) 2015 COVID-19 VACCINE (2 - 2023-2 5 season) 2024 08/07/2020 INFLUENZA VACCINE (#1) 2024 DEPRESSION SCREENING 05/30/2024 MAMMOGRAM 02/01/2025 02/01/2023 HIB VACCINE Aged Out No longer eligi ble based on patient's age to complete this topic HPV VACCINE Aged Out No longer eligi ble based on patient's age to complete this topic MENINGOCOCCAL (Group B) VACCINE Aged Out No longer eligible based on patient's age to complete this topic MENINGOCOCCAL VACCINE Aged Out No jillian bunny eligible based on patient's age to complete this topic PNEUMOCOCCAL VACCINE Aged Out No long er eligible based on patient's age to complete this topic Medical Devices Implanted Type Area Faculty Criminal Justice Device Identifier Shelf Expiration Date Model / Serial / Lot Shell Actb 52mm Hip 5 Screw Hl Clstr Implanted:Qty: 1 on 03/22/2023 by Mehrdad Esparza MD at [facility] Right: Hip [employer] 02/13/2028 702-04-52E / / [id number] Ins Trdnt X3 10 D Pe Implanted:Qty: 1 on 03/22/2023 by Mehrdad Esparza MD at [facility] Right: Hip [employer] 12/12/2027 723-10-36E / / [id number] Impl Hip 36mm Nk Insg 4 Hpstm Hi Ofst Implanted:Qty: 1 on 03/22/2023 by Mehrdad Esparza MD at [facility] Right: Hip [employer] 01/13/2028 [id number] / / [id number] Head Fem +0mm Ofst Tpr 36mm Hip Blx D Implanted:Qty: 1 on 03/22/2023 by Mehrdad Esparza MD at [facility] Right: Hip [employer] 12/17/2027 6570-0-136 / / [id number] Advance Directives * Full Code (Latest Code Status on File) Date Activated Date Inactivated Comments 03/22/2023 12:44 PM 03/23/2023 6:17 PM Care Teams Rose Grading Supervisor Relationship Specialty Start Date End Date Bruce Orozco MD [address] [place] [address] PCP - General Family Medicine 03/16/23
--- OUTSIDE RECORDS SUMMARY | 2024-06-21 00:34 | XMS_ITS | Patient Health Summary ---
Author Organization [facility] [employer] Address [address] [place] [address] Care Team Providers Care Fire Extinguisher Technician Name Role Phone Bruce Orozco MD Primary Care Provider [phone] Note from [facility],non-owned Affiliates and Associated Physician Practices is amultiple site organization consisting of ambulatory clinics and hospital sitesin [place], [place], [place] and [place]. This disclosure is being madepursuant to the Care Everywhere program and may not contain all information available regarding this patient. Last updated 18.[facility] [employer] Allergies * Sulfa Drugs(Nausea and/or Vomiting) -Low Criticality Medications * Be aware that medications may not be up to date on this document. Alwaysverify current medications with the patient. * Multiple Vitamins-Minerals (CENTRUM SILVER ADULT 50+ PO) Take 1 tablet by mouth every morning Hold 5 days pre op Reasons: supplement * atorvastatin (Lipitor) 10 MG tablet(Started 02/17/2023) Take 1 tablet by mouth once daily Ok to take day of surgery Reasons: High Amount of Fats in the Blood * furosemide (Lasix) 20 MG tablet(Started 01/04/2023) Take 1 tablet by mouth once daily Hold day of surgery Reasons: Edema, High Blood Pressure Disorder * levothyroxine (Synthroid) 50 MCG tablet(Started 03/01/2023) Take 1 tablet by mouth daily before breakfast Ok to take day of surgery Reasons: Underactive Thyroid * lisinopril (Prinivil; Zestril) 20 MG tablet(Started 01/04/2023) Take 1 tablet by mouth once daily Hold day before and day of surgery Reasons: High Blood Pressure Disorder * aspirin EC (Ecotrin) 81 MG tablet(Started 03/23/2023) Take 1 (one) tablet by mouth once daily * hydroCHLOROthiazide (Hydrodiuril) 25 MG tablet(Started 03/27/2023) Take 25 mg by mouth once daily. 12.5 mg once daily Indications: Edema, High Blood Pressure Disorder * oxyCODONE-acetaminophen (Percocet) 5-325 MG tablet(Started 03/27/2023) Take 1 tablet by mouth every 6 hours as needed for Pain. Indications: Pain * ciprofloxacin (Cipro) 250 MG tablet(Started 03/31/2023) Take 250 mg by mouth once. Indications: Infection of the Skin and/or Skin Structures Active Problems Problem Noted Date Diagnosed Date [...] Comments Blood Pressure 134/76 04/06/2023 11:24 AM TERMINAL OPERATIONS SUPERVISOR Pulse 84 04/06/2023 11:24 AM TERMINAL OPERATIONS SUPERVISOR Temperature 36.3 ??C (97.3 ??F) 04/06/2023 11:[address] Respiratory Rate 17 04/06/2023 11:24 AM TERMINAL OPERATIONS SUPERVISOR Oxygen Saturation 97% 04/06/2023 11:24 AM TERMINAL OPERATIONS SUPERVISOR Inhaled Oxygen Concentration - - Weight 111.1 kg (245 lb) 03/22/2023 6:07 AM CDT Height 165.1 cm (5' 5 ) 03/22/2023 6:07 AM CDT Body Mass Index 40.77 03/22/2023 6:07 AM CDT Medical Devices Implanted Type Area Patient Liaison Device Identifier Shelf Expiration Date Model / Serial / Lot Shell Actb 52mm Hip 5 Screw Hl Clstr Implanted:Qty: 1 on 03/22/2023 by Mehrdad Esparza MD at [facility] [place] Right: Hip [employer] 02/13/2028 702-04-52E / / [id number] Ins Trdnt X3 10 D Pe Implanted:Qty: 1 on 03/22/2023 by Mehrdad Esparza MD at [facility] [place] Right: Hip [employer] 12/12/2027 723-10-36E / / [id number] Impl Hip 36mm Nk Insg 4 Hpstm Hi Ofst Implanted:Qty: 1 on 03/22/2023 by Mehrdad Esparza MD at [facility] [place] Right: Hip [employer] 01/13/2028 [id number] / / [id number] Head Fem +0mm Ofst Tpr 36mm Hip Blx D Implanted:Qty: 1 on 03/22/2023 by Mehrdad Esparza MD at [facility] [place] Right: Hip [employer] 12/17/2027 6570-0-136 / / [id number] Procedures * IMAGING/RADIOLOGY/XRAY RESULTS ORDER(Performed 03/24/2023) * CARDIAC RHYTHM STRIP ORDER(Performed 03/24/2023) * CARDIAC EKG ORDER(Performed 03/24/2023) * HGB HCT PANEL(Performed 03/23/2023) Performed for Allergic arthritis of right hip * BASIC METABOLIC PANEL (CALCIUM TOTAL)(Performed 03/23/2023) Performed for Allergic arthritis of right hip * XR PELVIS 1 OR 2VW(Performed 03/22/2023) Performed for Allergic arthritis of right hip * LA TOTAL HIP REPLACEMENT(Performed 03/22/2023) * PERIPHERAL BLOCK(Performed 03/22/2023) Results * IMAGING RADIOLOGY XRAY RESULTS ORDER (03/24/2023 10:25 PM CDT) Anatomical Region Laterality Modality Other Narrative 03/24/2023 10:25 PM CDT Ordered by an unspecified provider. Scanned Document IMAGING * CARDIAC RHYTHM STRIP ORDER (03/24/2023 7:57 PM CDT) Narrative 03/24/2023 7:57 PM CDT Ordered by an unspecified provider. Scanned Document CARDIAC SERVICES ORD ERABLES * CARDIAC EKG ORDER (03/24/2023 7:56 PM CDT) Narrative 03/24/2023 7:56 PM CDT Ordered by an unspecified provider. Scanned Document CARDIAC SERVICES ORD ERABLES * (ABNORMAL) HGB HCT PANEL (03/23/2023 5:39 AM CDT) Hemoglobin 10.0(L) 12.0 - 15.6 gm/dL 03/23/2023 5:56 AM CDT [facility] Hematocrit 32.2(L) 35.9 - 45.5 % 03/23/2023 5:56 AM CDT [facility] Blood BLOOD SPECIMEN / Unknown Lab Venipuncture / Unknown 03/23/2023 5:39 AM CDT 03/23/2023 5:51 AM CDT Mehrdad Esparza MD LAB - HEMATOLOGY OR DERABLES [facility] [place] [address] * (ABNORMAL) BASIC METABOLIC PANEL (CALCIUM TOTAL) (03/23/2023 5:39 AM CDT) Glucose 112(H) 70 - 105 mg/dL 03/23/2023 6:09 AM CDT [facility] Sodium 141 136 - 145 mmol/L 03/23/2023 6:09 AM CDT [facility] Potassium 4.0 3.5 - 5.1 mmol/L 03/23/2023 6:09 AM CDT [facility] Chloride 107 98 - 107 mmol/L 03/23/2023 6:09 AM CDT [facility] CO2 24 22 - 29 mmol/L 03/23/2023 6:09 AM CDT [facility] Calcium 8.4 8.4 - 10.4 mg/dL 03/23/2023 6:09 AM CDT [facility] Anion Gap 10 6 - 16 mmol/L 03/23/2023 6:09 AM CDT [facility] BUN 37(H) 7 - 26 mg/dL 03/23/2023 6:09 AM T [facility] Creatinine 2.70(H) 0.57 - 1.11 mg/dL 03/23/2023 6:09 AM T [facility] eGFR by CKD-EPI 20(L) >=90 mL/min/1.7 3 m2 03/23/2023 6:09 AM CDT [facility] Blood BLOOD SPECIMEN / Unknown Lab Venipuncture / Unknown 03/23/2023 5:39 AM CDT 03/23/2023 5:51 AM CDT Mehrdad Esparza MD LAB - CHEMISTRY ORD ERABLES [facility] [address] [place] [address] * XR PELVIS 1 OR 2VW (IN PACU) (03/22/2023 10:47 AM CDT) Anatomical Region Laterality Modality Pelvis Radiographic Yvonne ging 03/22/2023 10:5 0 AM CDT Narrative 03/22/2023 10:51 AM CDT PROCEDURE(s): XR PELVIS 1 OR 2VW; DATE AND TIME OF EXAM(s): 03/22/2023 10:47 AM; LOCATION: [facility] INDICATION(s): M13.851: Other specified arthritis, right hip COMPARISON(s): None available. Findings/Impression: Right hip arthroplasty. There is no hardware complication or fracture. Soft tissue gas may be from recent surgery. Severe osteoarthritis left hip. No pelvic fracture. Bilateral ureteral stents are present coiled within the central pelvis. 2 surgical clips are seen within the left pelvis. > Interpreting Provider: Primo Little DO on 03/22/2023 10:51 AM Procedure Note Primo Little DO - 03/22/2023 PROCEDURE(s): XR PELVIS 1 OR 2VW; DATE AND TIME OF EXAM(s): 03/22/2023 10:47 AM; LOCATION: [facility] INDICATION(s): M13.851: Other specified arthritis, right hip COMPARISON(s): None available. Findings/Impression: Right hip arthroplasty. There is no hardware complication or fracture.Soft tissue gas may be from recent surgery. Severe osteoarthritis left hip. No pelvic fracture. Bilateral ureteral stents are present coiled within the central pelvis.2 surgical clips are seen within the left pelvis. > Interpreting Provider: Primo Little DO on 03/22/2023 10:51 AM Mehrdad Esparza MD DIAGNOSTIC IMAGING ORDERABLES * Peripheral Nerve Block (03/22/2023 7:40 AM CDT) Narrative Rsos Peterson MD - 03/22/2023 7:40 AM CDT Ross Peterson MD ? 03/22/2023 ??7:53 AM Peripheral ??Nerve Block ?? Procedure: Peripheral Nerve Block Patient Location: ??PACU Preprocedure Section: ?? Indications: at surgeon's request and postop pain management. Pre-anesthetic Checklist: Patient identified, IV Checked, Site examined and clear, Risks and benefits discussed, Surgical consent verified, Monitors and equipment, Time-out performed, Informed consent obtained, Pre-op evaluation done, Questions answered/anesthesia questions answered, Allergies reviewed and Removal hand/wrist jewelry Monitors: BP, Pulse Ox and EKG. Patient Condition: ??sedated, meaningful contact maintained throughout procedure Patient Position: supine Patient Sedated? ??Yes ? Sedation Type: ??mild ? Sedation Agents: ??fentaNYL (PF) (SUBLIMAZE) injection, 50 mcg midazolam (VERSED) injection, 2 mg Procedure Section ?? Laterality: right Block Performed: ??fascia iliaca Prep: ??Chloraprep Strerile Field: gloves, mask and hat/cap Skin localized with: lidocaine (XYLOCAINE) 1 % injection, 4 mL Needle Type: ??nerve stimulator and Echogenic insultaed Needle Gauge: ??20 Needle Length: ??90 mm Needle Depth: ??2 cm Nerve Stimulator? ?? Yes Ultrasound Guided? ?? Yes ? Technique: ??in plane ? Visualization: ??Preliminary scan performed, Important anatomical structures identified, Needle tip visualized throughout the procedure, Target identified, No intraneural or intravascular puncture occurred, Ultrasound image in chart, Local visualized surrounding nerve on ultrasound and Hydrodissection utilized Injection was made incrementally with constant monitoring and aspirations every 5 mL's Injection Assessment: ?? Slow fractionated injection Block Agents or Additives used? Yes Block agents used: ropivacaine (NAROPIN) 5 MG/ML (0.5%) injection, 40 mL Procedure Tolerance: tolerated well, performed while the patient was sedated and no immediate complications Procedure Start Time: 03/22/2023 7:35 AM. Procedure End Time: 03/22/2023 7:40 AM. Procedure Total Time: 5 ??minutes. Staff Section ? Anesthesia Provider: Ross Peterson MD, Performed the procedure Ross Peterson MD GENERAL ANESTHESIA O [facility] Teams Fire Extinguisher Technician Relationship Specialty Start Date End Date Bruce Orozco MD [address] [place] [address] PCP - General Family Medicine 03/16/23
--- OUTSIDE RECORDS SUMMARY | 2024-06-21 00:34 | XMS_ITS | Referral Summary ---
Author Organization [facility] [employer] Address [address] [facility] [facility] [place] [address] Care Team Providers Care Residential Carpenter Name Role Phone Bruce Orozco MD Primary Care Provider [phone] [facility] [employer],non-owned Affiliates and Associated Physician Practices is amultiple site organization consisting of ambulatory clinics and hospital sitesin [place], [place], [place] and [place]. This disclosure is being madepursuant to the Care Everywhere program and may not contain all information available regarding this patient. Last updated 18.[facility] [employer] Allergies Active Allergy Reactions Criticality Noted Date [...] Comments Blood Pressure 134/76 04/06/2023 11:24 AM MOLD SWABBER Pulse 84 04/06/2023 11:24 AM MOLD SWABBER Temperature 36.3 ??C (97.3 ??F) 04/06/2023 11:[address] Respiratory Rate 17 04/06/2023 11:24 AM MOLD SWABBER Oxygen Saturation 97% 04/06/2023 11:24 AM MOLD SWABBER Inhaled Oxygen Concentration - - Weight 111.1 kg (245 lb) 03/22/2023 6:07 AM CDT Height 165.1 cm (5' 5 ) 03/22/2023 6:07 AM CDT Body Mass Index 40.77 03/22/2023 6:07 AM CDT Plan of Treatment Not on file Medical Devices Implanted Type Area Fashion Supervisor Device Identifier Shelf Expiration Date Model / Serial / Lot Shell Actb 52mm Hip 5 Screw Hl Clstr Implanted:Qty: 1 on 03/22/2023 by Mehrdad Esparza MD at [facility] Right: Hip [employer] 02/13/2028 702-04-52E / / [id number] Ins Trdnt X3 10 D Pe Implanted:Qty: 1 on 03/22/2023 by Mehrdad Esparza MD at [facility] Right: Hip [employer] 12/12/2027 723-10-36E / / [id number] Impl Hip 36mm Nk Insg 4 Hpstm Hi Ofst Implanted:Qty: 1 on 03/22/2023 by Mehrdad Esparza MD at [facility] Right: Hip [employer] 01/13/2028 0935-9467 / / [id number] Head Fem +0mm Ofst Tpr 36mm Hip Blx D Implanted:Qty: 1 on 03/22/2023 by Mehrdad Esparza MD at [facility] Right: Hip [employer] 12/17/2027 6570-0-136 / / [id number] Advance Directives * Full Code (Latest Code Status on File) Date Activated Date Inactivated Comments 03/22/2023 12:44 PM 03/23/2023 6:17 PM Care Teams Residential Carpenter Relationship Specialty Start Date End Date Bruce Orozco MD [address] [place] [address] PCP - General Family Medicine 03/16/23
== END 2024-06-14 09:14 | disposition home or self-care (01) ==
PROVIDERS: PCP Family Medicine; Visit Provider Urology
PROC: (CPT 52352; principal; 2024-06-14 07:30)
DX: N13.5 Crossing vessel and stricture of ureter without hydronephrosis (principal); K68.2 Retroperitoneal fibrosis; I89.0 Lymphedema, not elsewhere classified; E78.5 Hyperlipidemia, unspecified; I10 Essential (primary) hypertension; E03.9 Hypothyroidism, unspecified; I44.7 Left bundle-branch block, unspecified; E66.01 Morbid (severe) obesity due to excess calories; Z68.41 Body mass index [BMI] 40.0-44.9, adult; Z98.890 Other specified postprocedural states; Z90.49 Acquired absence of other specified parts of digestive tract; Z96.0 Presence of urogenital implants; Z85.41 Personal history of malignant neoplasm of cervix uteri; Z92.3 Personal history of irradiation; Z92.21 Personal history of antineoplastic chemotherapy; Z80.3 Family history of malignant neoplasm of breast; Z82.49 Family history of ischemic heart disease and other diseases of the circulatory system
CPT/HCPCS: 52332; 74420; A9270; C1758; C1769; C2617; J0690; J1100; J2003; J2250; J2405; J2704; J3010; J7120; Q9966

== ENCOUNTER 2025-02-13 08:16 | Outpatient (CLI) | payer OTHER, SELFPAY ==
--- OUTSIDE RECORDS SUMMARY | 2017-03-06 19:00 | XMS_ITS | Continuity of Care Document ---
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 [address] [place] [address], [id number], . tel:[phone] Referring Provider: Rolando Whipple, [address] [place] [address], [place], [address]. tel:[phone] Family History Family Member Type Diagnosis Age At Onset No Information Payers Payer name Insurance type Covered green party ID Authoriza tirenetta(s) [employer] OPEN ACCESS I II III CI [id number] Social History Type Description Quantity Date Captured Comments Sex Female Smoking Status No Information Chief Complaint And Reason For Visit No Information Reason For Referral Reason For Referral No Information History Of Present Illness Encounter Date Complaint History Of Prese nt Illness No Information Functional Status Date Functional Assessmen t No Information Instructions Date Instruction Additional Infor mation No Information Assessments Type Assessment Date No Information Patient Care Teams Name Effective Dates (start - stop) Status Members No Information
--- OUTSIDE RECORDS SUMMARY | 2025-02-13 08:49 | XMS_ITS | Clinical Summary ---
Author Organization [facility] [employer] Address [address] [place] [address] Care Team Providers Care Wall Washer Name Role Phone Bruce Orozco MD Primary Care Provider [phone] Source Comments [facility] [employer] [facility],non-owned Affiliates and Associated Physician Practices is amultiple site organization consisting of ambulatory clinics and hospital sitesin [place], [place], [place] and [place]. This disclosure is being madepursuant to the Care Everywhere program and may not contain all information available regarding this patient. Last updated 18.[facility] [employer] [facility] Allergies Active Allergy Reactions Criticality Noted Date Comments Sulfa Drugs Nausea and/or Vomiting Low 03/16/2023 Medications * Be aware that medications may not be up to date on this document. Alwaysverify current medications with the patient. Multiple Vitamins-Minera ls (CENTRUM SILVER ADULT 50+ PO)Indications: supplement Take 1 tablet by mouth every morning Hold 5 days pre op Reasons: supplement Active atorvastatin (Lipitor) 10 MG tabletIndicatio ns:Hyperlipidem ia Take 1 tablet by mouth once daily Ok to take day of surgery Reasons: High Amount of Fats in the Blood 3 Active furosemide (Lasix) 20 MG tabletIndicatio ns:Edema,Hypert ension Take 1 tablet by mouth once daily Hold day of surgery Reasons: Edema, High Blood Pressure Disorder 3 Active levothyroxine (Synthroid) 50 MCG tabletIndicatio ns:Hypothyroidi sm Take 1 tablet by mouth daily before breakfast Ok to take day of surgery Reasons: Underactive Thyroid 3 Active lisinopril (Prinivil; Zestril) 20 MG tabletIndicatio ns:Hypertension Take 1 tablet by mouth once daily Hold day before and day of surgery Reasons: High Blood Pressure Disorder 3 Active aspirin EC (Ecotrin) 81 MG tabletIndicatio ns:Arthritis,Os teoarthritis,Pa in Take 1 (one) tablet by mouth once daily 30 tablet 3 Active hydroCHLOROthia zide (Hydrodiuril) 25 MG tabletIndicatio ns:Edema,Hypert ension Take 25 mg by mouth once daily. 12.5 mg once daily Indications: Edema, High Blood Pressure Disorder 3 Active oxyCODONE-aceta minophen (Percocet) 5-325 MG tabletIndicatio ns:Pain Take 1 tablet by mouth every 6 hours as needed for Pain. Indications: Pain 3 Active ciprofloxacin (Cipro) 250 MG tabletIndicatio ns:Skin and Skin Structure Infection Take 250 mg by mouth once. Indications: Infection of the Skin and/or Skin Structures 3 Active Active Problems Problem Noted Date Diagnosed [...] more drinks on one occasion? 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 Gender Identity Not on file Sexual Orientation Not on file Last Filed Vital Signs Vital Sign Reading Time Taken Comments Blood Pressure 134/76 04/06/2023 11:24 AM LOCAL HAZMAT DRIVER Pulse 84 04/06/2023 11:24 AM LOCAL HAZMAT DRIVER Temperature 36.3 C (97.3 F) 04/06/2023 11:24 AM LOCAL HAZMAT DRIVER Respiratory Rate 17 04/06/2023 11:24 AM LOCAL HAZMAT DRIVER Oxygen Saturation 97% 04/06/2023 11:24 AM LOCAL HAZMAT DRIVER Inhaled Oxygen Concentration - - Weight 111.1 kg (245 lb) 03/22/2023 6:07 AM CDT Height 165.1 cm (5' 5) 03/22/2023 6:07 AM CDT Body Mass Index [...] FLEX SIG - COLON CA SCREENING 1965 HIV SCREENING 1980 HEPATITIS C SCREENING 05/10/1983 DTAP/TDAP/TD VACCINES (1 - Tdap) 1984 HEPATITIS B VACCINE (1 of 3 - 19+ 3-dose series) 1984 PAP SMEAR 1986 PNEUMOCOCCAL VACCINE 50+ (1 of 1 - PCV) 2015 ZOSTER VACCINE (1 of 2) 2015 DEPRESSION SCREENING 05/30/2024 COVID-19 VACCINE (2 - 2024-2 6 season) 2025 08/07/2020 INFLUENZA VACCINE (#1) 2025 MAMMOGRAM 02/01/2025 02/01/2023 HIB VACCINE Aged Out No longer eligi ble based on patient's age to complete this topic HPV VACCINE Aged Out No longer eligi ble based on patient's age to complete this topic MENINGOCOCCAL (Group B) VACC INE SHARED DECISION-MAKING Aged Out No longer eligibl e based on patient's age to complete this topic MENINGOCOCCAL GROUPS A/C/Y/W VACCINE Aged Out No longer eligible b ased on patient's age to complete this topic Medical Devices Implanted Type Area Microsoft Crm Developer Device Identifier Shelf Expiration Date Model / Serial / Lot Shell Actb 52mm Hip 5 Screw Hl Clstr Implanted:Qty: 1 on 03/22/2023 by Mehrdad Esparza MD at [facility] Right: Hip [employer] 02/13/2028 [id number] / / [id number] Ins Trdnt X3 10 D Pe Implanted:Qty: 1 on 03/22/2023 by Mehrdad Esparza MD at [facility] Right: Hip [employer] 12/12/2027 [id number] / / [id number] Impl Hip 36mm Nk Insg 4 Hpstm Hi Ofst Implanted:Qty: 1 on 03/22/2023 by Mehrdad Esparza MD at [facility] Right: Hip [employer] 01/13/2028 [id number] / / [id number] Head Fem +0mm Ofst Tpr 36mm Hip Blx D Implanted:Qty: 1 on 03/22/2023 by Mehrdad Esparza MD at [facility] Right: Hip [employer] 12/17/2027 [id number] / / [id number] Insurance [employer] Advance Directives * Full Code (Latest Code Status on File) Date Activated Date Inactivated Comments 03/22/2023 12:44 PM 03/23/2023 6:17 PM Care Teams Wall Washer Relationship Specialty Start Date End Date Bruce Orozco MD [address] [place] [address] PCP - General Family Medicine 03/16/23
--- OUTSIDE RECORDS SUMMARY | 2025-02-13 08:49 | XMS_ITS | Clinical Summary ---
Author Organization [facility] Address [address] [place] [address] Care Team Providers Care Tool Designer Name Role Phone Rolando Whipple MD Primary Care Provider [phone] Allergies Active Allergy Reactions Criticality Noted Date Comments Sulfa (Sulfonamide Antibiotics) Vomiting Low Medications levothyroxine (SYNTHROID) 50 mcg tabletIndicatio ns:hypothyroidi sm Take 1 tablet (50 mcg total) by mouth color mixer before breakfast 9 Active atorvastatin (LIPITOR) 10 [...] 1 tablet (20 mg total) by mouth color mixer before breakfast 3 Active lisinopriL (PRINIVIL,ZESTR IL) 20 mg tabletIndicatio ns:hypertension Take 1 tablet (20 mg total) by mouth color mixer before breakfast 3 Active ibuprofen (ADVIL,MOTRIN) 600 mg tablet Take 1 tablet (600 mg total) by mouth every 6 (six) hours as needed for pain 30 tablet 3 Active aspirin 81 mg enteric coated tablet Take 1 tablet (81 mg total) by mouth daily 3 Active HYDROcodone-dax taminophen (NORCO) 5-325 mg per tablet TAKE 1 - 2 TABLETS BY MOUTH EVERY 6 HOURS NEEDED FOR PAIN 5 Active cephalexin (KEFLEX) 500 mg capsule TAKE 1 CAPSULE BY MOUTH EVERY 8 HOURS 5 Active Active Problems Problem Noted Date Diagnosed Date 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 Malignant neoplasm of cervix 01/17/2019 Overview (01/17/2019): Added automatically from request for surgery [id number] Lymphedema of extremity 01/17/2019 Overview (01/17/2019): Added automatically from request for surgery [id number] Malignant neoplasm of overlapping sites of cervi x 01/17/2019 Overview (01/17/2019): Added automatically from request for surgery [id number] Lymphedema 02/13/2014 Female stress incontinence 07/12/2013 Stress incontinence in female 07/12/2013 Urinary dribbling 07/12/2013 Dribbling of urine 07/12/2013 Mixed stress and urge urinary incontinence 07/12 Vaginal atrophy 07/12/2013 Dysuria 12/15/2012 Neoplastic disease 06/22/2011 Adenocarcinoma of cervix 06/16/2011 Immunizations Immunization Administration Dates Next Due [place] (J&J) SARS-CoV-2 Vaccination 08/07/2020 Surgical History Surgery Date Site/Laterality Comments GALLBLADDER SURGERY 05/30/1996 - 05/29/1997 Gallbladder Surgery - (Added by TW Conv) IN DELIVERY ONLY 05/30/1994 - 05/29/1995 Section - [...] - (Added by TW Conv) Cervical cancer (HCC) Status post radiation therapy la st [...] on file Legal Sex Female 9:32 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 Gender Identity Not on file Sexual Orientation Straight 04/07/2021 8: 55 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 Obstetrics History Para Term AB IAB SAB Ectopic Multiple Livin g Live Births 3 2 2 1 2 Date Outcome GA Total Labor Labor/2nd/3rd Weight Sex Type Anes PTL Lucinda A1 A5 Name Clin Term Term AB Last Filed Vital Signs Vital Sign Reading Time Taken Comments Blood Pressure 162/91 08/27/2024 1:35 PM CDT Pulse 93 08/27/2024 1:35 PM CDT Temperature 36.7 C (98.1 F) 08/27/2024 1:35 PM CDT Respiratory Rate 16 08/27/2024 1:35 PM CDT Oxygen Saturation 99% 08/27/2024 1:35 PM CDT Inhaled Oxygen Concentration - - Weight 118.4 kg (261 lb 1.6 oz) 08/27/2024 1:35 PM CDT Height 165.1 cm (5' 5) 08/27/2024 1:35 PM CDT Body Mass Index 43.45 08/27/2024 1:35 PM CDT Plan of Treatment Health Maintenance Due Date Last Done Comments Colon Cancer Screening-Colonoscopy 1965 Depression Screening 1965 Hepatitis C Screening 1965 DTaP/Tdap/Td Vaccine (1 - Tdap) 1976 Hepatitis B Screening 1983 Regular Well Visit/Exam 18-64 1983 Zoster Vaccine (1 of 2) 2015 Covid-19 Vaccine (2 - season) 2025 08/07/2020 Influenza Vaccine (#1) 2025 Breast Cancer Screening-Mammogram 02/26/2025 02/27/2024, 02/01/2023, 10/08/2021, Additional history exists Cervical Cancer Screening 02/26/20252023, 06/23/2022, 06/20/2020 Pneumococcal vaccine <65 Aged Out No longer eligible based on patient's age to complete this topic Medical Devices Implanted Type Area Apartment Community Manager Device Identifier Shelf Expiration Date Model / Serial / Lot InVision 2mm Ring Pin Ultrasonic Doppler 20mhz Wire Stockkeeper Anastomosis Latex Free 2752 - [id number] Implanted:Qty: 1 on 10/04/2022 by Huang Goyal MD at [facility] Other - see comments Right: Leg Radionomy [id number] 01/22/2027 [id number] / / [id number] [employer] Allian Kossuth Cartridge Micro Clip Internal Titanium Hemostatic [id number] - [id number] Implanted:Qty: 2 on 10/04/2022 by Huang Goyal MD at [facility] Right: Leg [employer] Allian 11/26/2026 [id number] / / [id number] [employer] [facility] Allian Hemoclip Superfine Clip Internal [id number] - [id number] Implanted:Qty: 1 on 10/04/2022 by Huang Goyal MD at [facility] Right: Leg [employer] Allian 11/26/2026 [id number] / / [id number] [employer] Allian Hemoclip Superfine Clip Internal [id number] - [id number] Implanted:Qty: 2 on 10/04/2022 by Huang Goyal MD at [facility] Right: Leg [employer] [facility] Allian 01/27/2027 [id number] / / [id number] [employer] Allian Kossuth Cartridge Micro Clip Internal Titanium Hemostatic [id number] - [id number] Implanted:Qty: 1 on 10/04/2022 by Huang Goyal MD at [facility] Right: Leg [employer] [facility] Allian 11/26/2026 [id number] / / [id number] Procedures Procedure Name Priority Date/Time Associated [...] CDT 02/27/2024 5:40 PM CDT Narrative PATHOLOGY [facility] - 03/07/2024 2:39 PM CDT EPIC results best viewed via link to PDF [facility] [place] [address] Note to Patients: This report may contain [...] the details. CYTOPATHOLOGY REPORT FINAL Patient Name: RAQUEL NOVA Gender: F : 1965 (Age: 58) Address: [address] [place] [id number] Hospital #: [id number] Service: DIE WELDER Location: Patient Type: [facility] SPECIMEN Taken: 02/27/2024 Received: 02/27/2024 Accessioned: 02/28/2024 Reported: 03/07/2024 Physician(s): Valeria Dallas M.D. FINAL INTERPRETATION SOURCE OF SPECIMEN Liquid based Thin Prep pap with HPV: STATEMENT OF ADEQUACY - Satisfactory for evaluation, vaginal smear GENERAL CATEGORIZATION: - Negative for squamous intraepithelial lesion or malignancy INTERPRETATION: - Negative for squamous intraepithelial lesion or malignancy Comments HPV HR 16 vaginal- Negative HPV HR 18 vaginal- Negative HPV HR non 16/18 vaginal- Negative Comment: The following Other High Risk HPV types were not detected: 31, 33, 35, 39, 45, 51, 52, 56, 58, 59, 66, and 68 ADDITIONAL INFORMATION Testing was performed using the kerrie HPV assay ([employer] This test has been modified from the map plotter's instructions. Its performance characteristics were determined by [facility] in a manner consistent with CLIA requirements. This test has not been cleared or approved by the U.S. Food and Drug Administration. Test Performed by: [address] [address] [place]: Christoph Vizcaino M.D. Ph.D.; CLIA# [id number] 03/07/2024 13:09 By this signature, I attest that the above diagnosis is based upon my personal examination of the slides(and/or other material indicated in the diagnosis). Jam Zimmerman M.D. Report Electronically Reviewed and [...] clinical information and biopsy results as indicated. [facility] Clinical Laboratory Improvement Amendments (CLIA) mandate that cytologic and histologic results be correlated for laboratory quality systems manager & improvement standards. FOR ALL HIGH-GRADE CASES we request submission of follow-up histological material and/or reports that have not been previously provided so that we may fulfill said required standards. Gross Description A. Liquid based Thin Prep pap with HPV: Vaginal - Screening ThinPrep Clinical Diagnosis and History Last Menstrual Period: Post xrt The patient is a 58 year old female with s/p chemo xrt for cervical cancer in 2007, malignant neoplasm of cervix, unspecified site, Report Images and scanned documents, if included only viewable in PDF version The performance characteristics of some immunohistochemical stains, in-situ hybridization and fluorescence in-situ hybridization tests and immunophenotyping by flow cytometry cited in this report (if any) were determined by the Surgical Pathology Department at [facility] as part of an ongoing quality assurance coach program and in compliance with federally mandated regulations drawn from the Clinical Laboratory Improvement Act of 1988 (CLIA '88). Some of these tests rely on the use of analyte specific reagents and are subject to specific labeling requirements by the US Food and Drug Administration. Such diagnostic tests may only be performed in a facility that is certified by the Department of Health and Human Services as a high complexity laboratory under CLIA '88. The FDA has determined that such clearance or approval is not necessary. This test is used for clinical purposes. It should not be regarded as investigational or for research. Nevertheless, federal rules concerning the medical use of analyte specific reagents require that the following disclaimer be attached to the report: This test was developed and its performance characteristics determined by the Surgical Pathology Department of [facility]. It has not been cleared or approved by the U. S. Food and Drug Administration. Premal Wayne Dallas MD LAB CYTOLOGY ORDERABLES Final Result PATHOLOGY [facility] [address] [place], [place] [phone] * Screening Mammogram Bilateral [place] (02/27/2024 2:07 PM CDT) Anatomical Region Laterality Modality Breast Bilateral Mammography Narrative 02/27/2024 5:47 PM CDT Mammogram Technique: Bilateral Digital Breast Tomosynthesis, Bilateral C-view 2D Screening mammogram. Views obtained: bilateral craniocaudal and bilateral mediolateral oblique. Computer Aided Detection was performed. Mammogram Findings: The present examination has been compared to prior imaging studies performed at [facility] on 08/19/2020, 10/08/2021 and 02/01/2023. The breasts are heterogeneously dense, which may obscure small masses. There is no suspicious abnormality in either breast. Impression: There is no mammographic evidence of malignancy. Annual screening mammography is recommended. If supplemental screening is desired, breast MRI would be recommended in this patient with heterogeneously dense breasts. OVERALL FINAL ASSESSMENT: BI-RADS CATEGORY 1: Negative. Procedure Note Sangita Curiel MD - 02/27/2024 Mammogram Technique: Bilateral Digital Breast Tomosynthesis, Bilateral C-view 2D Screening mammogram. Views obtained: bilateral craniocaudal and bilateral mediolateral oblique. Computer Aided Detection was performed. Mammogram Findings: The present examination has been compared to prior imaging studies performed at [facility] on 08/19/2020, 10/08/2021 and 02/01/2023. The [...] Most Recently Relevant to Health Maintenance Insurance [facility] [id number] [employer] [facility] [id number] [facility] [id number] Advance Directives For more information, please contact: [phone] * Full Code (Latest Code Status on File) Date Activated Date Inactivated Comments 10/04/2022 4:07 PM 10/05/2022 7:55 PM Care Teams Tool Designer Relationship Specialty Start Date End Date Rolando Whipple MD [address] [place] [id number] PCP - General Family Medicine 01/18/24
[2025-02-13 09:01] LABS: Anion Gap 8 mmol/L (4-12); Blood Urea Nitrogen 25 mg/dL (7-17); Calcium 9.0 mg/dL (8.4-10.2); Carbon Dioxide 25 mmol/L (22-30); Chloride 107 mmol/L (98-107); Estimated Glomerular Filt Rate 29; Glucose 108 mg/dL (65-110); Potassium 4.5 mmol/L (3.4-5.0); Sodium 140 mmol/L (137-145)
== END 2025-02-13 08:17 | disposition home or self-care (01) ==
LOC: ANHSURGERY 08:20
PROVIDERS: Anesthesiology; PCP Family Medicine; Visit Provider Urology
DX: Z79.899 Other long term (current) drug therapy (principal)
CPT/HCPCS: 36415; 80048

== ENCOUNTER 2025-02-21 01:37 | Day surgery (SDC) | payer OTHER, SELFPAY ==
[2025-02-11 14:54] VITALS: BMI 41.6
--- NOTE | 2025-02-11 14:55 | PC.NURSE ---
Report to the Outpatient Waiting Room, entrance under the green pavilion located off [facility], at time _0630_ on date _02-21-25_. Planned Procedure Time: _0830_.? Time changes happen often and if your time is changed the preop area will call you the afternoon before. - You and your visitor will be asked to self-screen and do not enter if you have any COVID symptoms. Please call surgeon if you need to reschedule. - A mask is optional within the hospital at this time. Patients may have clear liquids (water, carbonated beverages, clear teas, apple juice) until 3 hours prior to surgery with a maximum of 20 ounces. - No food from midnight until time of surgery and no smoking, or chewing tobacco (or any form of nicotine). No chewing gum, candy or mints. Take only the following medications with a SIP of water on the morning of surgery: ___Levothyroxine____ DO NOT STOP ANY OF YOUR OTHER PRESCRIPTION MEDICATIONS PRIOR TO SURGERY EXCEPT THE FOLLOWING Hold all vitamins and supplements for 3 days per anesthesiologist. Medications to discontinue per physician Date to take last dose Please no make-up, nail thai, hairspray, perfume, deodorant, or body powder the day of surgery.? No jewelry (including any body piercings) or valuables the day of surgery, leave them at home.? Please take a shower or bath the night before, or the morning of, surgery with an antibacterial soap.? Wear comfortable, loose fitting clothing.? - Jewelry must be removed prior to entering the operating room.? Rings and piercings that are not removed may be cut off. - The hospital will not accept responsibility for valuables.? - Please leave all valuables, including medications, at home the day of surgery. If you are going home after surgery, a licensed package car driver must drive you home.? - NO public transportation without another adult if you receive anesthesia. - We recommend that an adult stay with you for 24 hours following discharge. - We also recommend that you do not drive, make important decision, drink alcoholic beverages, or take any drugs that were not prescribed by your health care provider for at least 24 hours after your discharge time. Follow any additional instructions given to you from your surgeon. Telephone instructions given to __Raquel__and asked if any additional questions and then verbalized understanding. Patient advised to call surgeon office or pre surgery nurse liaison [phone] if any additional questions.
--- NOTE | 2025-02-18 07:01 | P.HP_ITS ---
History of Present Illness History of Present Illness Consent: Risks, benefits, and alternatives have been discussed and questions answered. Patient agrees to proceed with procedure. 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 This is managed with chronic indwelling ureteral stents which are changed periodically. The stents were last changed on 06/14/2024. She presents today for cystoscopy with bilateral ureteral stent exchange. She is aware of the risks including hematuria, infection and other things. Review of Systems Review of Systems: All systems reviewed & are unremarkable except as noted in HPI and below PMFSH Past Medical History Medical History Hyperlipidemia Lymph node disorder has had lymph nodes removed from upper chest and placed to right lower extremity . 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 she works at [employer] in [employer]. she Has 2 children. she is a lifelong nonsmoker. Primary care physician: Dr. Orozco Code status: Full code Smoking status: Never smoker Second hand tobacco smoke exposure: No Alcohol intake: current Drinks per week: 1 Alcohol use details: very rare. 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 Gender identity (if verbalized by the patient): Female Sexual Orientation (if Verbalized by the Patient): Straight or Heterosexual Spiritual care concerns: No Meds Home Medications and Allergies Home Medications ?Medication ?Instructions ?Recorded ?Confirmed ?Type levothyroxine 50 mcg tablet 50 mcg PO DAILY 01/05/20 0 02/11/25 History (Synthroid) atorvastatin 10 mg tablet 10 mg PO DAILY 03/11/2101/28 History cephalexin 250 mg capsule 250 mg PO HS 03/11/21 History hydrochlorothiazide 12.5 mg tablet 12.5 mg PO DAILY 02/11/25 History lisinopril 20 mg tablet 20 mg PO DAILY 02/25/2301/28 History furosemide 20 mg tablet 20 mg PO DAILY 06/05/2401/28 History Allergies Allergy/AdvReac Type Severity Reaction Status Date / Time Sulfa (Sulfonamide AdvReac Intermediate NAUSEA Verified 02/11/25 14:47 Antibiotics) Exam Const: General: no acute distress Resp: Effort & Inspection: normal respiratory effort GI: Inspection: non-distended GI Palp: No abdominal tenderness and No Guarding due to palpation present (GI) Auscultation: normal bowel sounds Assessment and Plan Assessment and plan (1) Bilateral ureteral obstruction: Code(s): N13.5 - Crossing vessel and stricture of ureter without hydronephrosis Status: Acute Assessment and Plan: * Cystoscopy, bilateral ureteral stent exchange
[2025-02-21] VITALS (8 sets, daily range): BP systolic 94–125; BP diastolic 49–73; PULSE 80–103; RESP 12–18; TEMP 36.1–36.4; O2SAT 95–100; BMI 43.2
--- NOTE | ~2025-02-21 | XR_ITS ---
EXAMINATION: XR retrograde pyelo w/stent BI DATE: 02/21/2025 09:01 INDICATION: Bilateral internal ureteral stents TECHNIQUE: 4 fluoroscopic images of the abdomen and pelvis were obtained during procedure performed by Dr. Harden. Radiologist was not present for the imaging or procedure. The amount of fluoroscopy time used during this procedure was 0.6 minutes. Total DAP was 0.723 mGym^2. COMPARISON: None. FINDINGS: [employer] imaging demonstrates bilateral intraureteral stents in expected position with loops formed over the bladder and at the expected location of the bilateral renal pelvises. There are couple small surgical clips at the central pelvis. There is also a partially visualized right total hip arthroplasties. Subsequent images demonstrate contrast opacification of the bilateral renal collecting systems with mild to moderate bilateral hydronephrosis. There are new bilateral intraureteral stents with distal loops formed in the bladder and proximal loops formed in the right renal pelvis and in an upper pole calyx of the left kidney. IMPRESSION: 1. Fluoroscopy utilized during bilateral internal ureteral stent exchanges. See procedure note for further detail. Reviewed, dictated and finalized at location A.
--- NOTE | 2025-02-21 06:18 | WPDHPUPDATE1 ---
History and Physical Update Update Date/Time: 02/21/25 06:18 History and Physical has been reviewed, including an updated exam of the patient. There are NO changes in the patient's condition. Risks, benefits, and alternatives have been discussed and questions answered. Patient agrees to proceed with procedure.
--- NOTE | 2025-02-21 07:12 | WPDANESEPPF ---
Anes - Initial Pre Proc Eval Procedure: Operation Date: 02/21/25 08:30 Proposed Procedures p Cystoscopy, Bilateral Retrograde Pyelogram, Bilateral Ureteral Stent Exchange - Karl Harden MD Date/Time: 02/21/25 07:12 Surgeon: Karl Harden MD Pre Op Diagnosis: retroperitoneal fibrosis, bilateral hydronephrosis Patient Data Age: 59 Gender: F Height: 1.65 m Weight: 118 kg Last Vital Signs Temp 36.4 C 02/21/25 06:38 Pulse 102 H 02/21/25 06:38 Resp 14 02/21/25 06:38 BP 122/73 02/21/25 06:38 Pulse Ox 96 02/21/25 06:38 O2 Del Method Room Air 02/21/25 06:38 Allergies Allergy/AdvReac Type Severity Reaction Status Date / Time Sulfa (Sulfonamide AdvReac Intermediate NAUSEA Verified 02/11/25 14:47 Antibiotics) Home Medications ?Medication ?Instructions ?Recorded ?Confirmed ?Type levothyroxine 50 mcg tablet 50 mcg PO DAILY 01/05/20 02/11/25 History (Synthroid) atorvastatin 10 mg tablet 10 mg PO DAILY 03/11/21 02/11/25 History cephalexin 250 mg capsule 250 mg PO HS 03/11/21 02/11/25 History hydrochlorothiazide 12.5 mg tablet 12.5 mg PO DAILY 03/11/21 02/11/25 History lisinopril 20 mg tablet 20 mg PO DAILY 02/25/23 02/11/25 History furosemide 20 mg tablet 20 mg PO DAILY 06/05/24 02/11/25 History Patient hx anesthesia problems: none Family hx anesthesia problems: none Results Review: All pre-operative results and documents have been reviewed as part of the pre-operative evaluation. [facility] Past Medical History Medical History Hyperlipidemia Lymph node disorder has had lymph nodes removed from upper chest and placed to right lower extremity . 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 she works at [employer] in [employer]. she Has 2 children. she is a lifelong nonsmoker. Primary care physician: Dr. Orozco Code status: Full code Smoking status: Never smoker Second hand tobacco smoke exposure: No Alcohol intake: current Drinks per week: 1 Alcohol use details: very rare. 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 Gender identity (if verbalized by the patient): Female Sexual Orientation (if Verbalized by the Patient): Straight or Heterosexual Spiritual care concerns: No Anes - Eval Final PreProcedure Day of Procedure 02/21/25 07:12 Patient weight: morbidly obese Heart: regular rate and rhythm Lungs: clear to auscultation Airway: Mallampati scale class II Neurological: alert and oriented Last oral intake: >/= 8 hours ASA classification: III Emergent: no Anesthetic plan: proceed Anesthesia type and monitoring: general LMA and standard monitoring Results Review: All pre-operative results and documents have been reviewed as part of the pre-operative evaluation. Informed Consent: The patient's anesthetic plan and its attendant risks and benefits were discussed with the patient/family/POA. Questions were solicited and answers provided to the satisfaction of the patient/family/POA.
[2025-02-21] MEDS: LACTATED RINGERS 1,000 ML 30 ML IV CONT (07:25)
[2025-02-21] MEDS: SCOPOLAMINE 1 MG PATCH 1 PATCH TRANSDERM (07:28)
[2025-02-21] MEDS: ceFAZolin 2 GM in SODIUM CHLORIDE 0.9% IV 50 ML 100 ML IVPB (08:35)
--- NOTE | 2025-02-21 09:05 | W.PM.PROC2 ---
Procedure Note - Detailed Date of Procedure 02/21/25 Pre-op Diagnosis retroperitoneal fibrosis, bilateral hydronephrosis Post-op Diagnosis Same Procedure Performed Cystoscopy, bilateral retrograde pyelography, bilateral ureteral stent exchange Surgeon Karl Harden MD Anesthesia General Description of Procedure Patient is brought to the operative suite where she has prepped draped in routine sterile fashion while in a dorsal lithotomy position.? Twenty-one F rigid cystoscope was placed in the bladder.? Each stent is grasped and brought to the external urethral meatus.? A 0.035 in glidewire was advanced through each stent into the renal pelvis.? Retrograde pyelography is undertaken with an angiographic catheter to insure appropriate positioning.? New 6F variable length bilateral ureteral stents were placed with the proximal coil in the renal pelvis and the distal coil in the bladder.?? Again, I had a bit of difficulty visually the left ureteral stent so I performed rigid cystoscopy with retrograde pyelography to ensure appropriate intubation of the ectopic left ureteral orifice near the dome of the bladder (previous left ureteral reimplant).? It should be noted that her current stents had minimal encrustation at the 7 month interval.? Scopes and wires removed she was taken recovery room good condition.
== END 2025-02-21 10:43 | disposition home or self-care (01) ==
PROVIDERS: PCP Family Medicine; Visit Provider Urology
PROC: (CPT 52352; principal; 2025-02-21 08:30)
DX: N13.5 Crossing vessel and stricture of ureter without hydronephrosis (principal); E78.5 Hyperlipidemia, unspecified; I10 Essential (primary) hypertension; E03.9 Hypothyroidism, unspecified; I89.0 Lymphedema, not elsewhere classified; E66.01 Morbid (severe) obesity due to excess calories; Z68.41 Body mass index [BMI] 40.0-44.9, adult; Z79.899 Other long term (current) drug therapy; Z98.890 Other specified postprocedural states; Z90.49 Acquired absence of other specified parts of digestive tract; Z96.0 Presence of urogenital implants; Z92.3 Personal history of irradiation; Z92.21 Personal history of antineoplastic chemotherapy; Z85.41 Personal history of malignant neoplasm of cervix uteri; Z80.3 Family history of malignant neoplasm of breast; Z82.49 Family history of ischemic heart disease and other diseases of the circulatory system
CPT/HCPCS: 52332; 74420; 82948; J0690; A9270; C1758; C1769; C2617; J2003; J2250; J2405; J2704; J3010; J7120; Q9966

== ENCOUNTER 2025-04-17 11:42 | Outpatient (CLI) | payer OTHER, SELFPAY ==
[2025-04-17 12:04] LABS: Hematocrit 42.8 % (37.0-47.0); Hemoglobin 13.6 g/dL (12.0-15.0); Mean Corpuscular HGB Conc 31.8 g/dl (32-36); Mean Corpuscular Hemoglobin 28.3 pg (26-34); Mean Corpuscular Volume 89.0 fl (80-100); Platelet Count Result 376 k/mm3 (150-375); Red Blood Count 4.81 M/mm3 (4.2-5.4); White Blood Count 9.9 K/mm3 (4.5-10.0)
--- NOTE | 2025-04-17 12:05 | ECG_ITS ---
Test Date: 2025-04-17 12:11:13 Measurements Intervals [place] Rate: 96 P: 72 TX: 193 QRS: -45 QRSD: 138 T: 82 QT: 364 QTc: 461 Interpretive Statements SINUS RHYTHM LEFT ATRIAL ENLARGEMENT [-0.15mV P-WAVE IN V1/V2] LEFT BUNDLE-BRANCH BLOCK LEFT AXIS DEVIATION ABNORMAL ECG Electronically Signed On 04-17-2025 17:15:01 [employer] by Mehrdad Giron M.D.
[2025-04-17 12:24] LABS: Alanine Aminotransferase 22 U/L (6-35); Albumin Level 4.3 g/dL (3.5-5.1); Alkaline Phosphatase 120 U/L (38-126); Anion Gap 12 mmol/L (4-12); Aspartate Amino Transferase 27 U/L (14-36); Bilirubin,Total 0.6 mg/dL (0.2-1.3); Blood Urea Nitrogen 43 mg/dL (7-17); Calcium 9.6 mg/dL (8.4-10.2); Carbon Dioxide 26 mmol/L (22-30); Chloride 100 mmol/L (98-107); Estimated Glomerular Filt Rate 21; Glucose 103 mg/dL (65-110); Potassium 3.8 mmol/L (3.4-5.0); Sodium 138 mmol/L (137-145); Total Protein 7.7 g/dL (6.3-8.2)
== END 2025-04-17 11:43 | disposition home or self-care (01) ==
PROVIDERS: PCP Family Medicine; Visit Provider Orthopaedic Surgery
DX: G56.21 Lesion of ulnar nerve, right upper limb (principal); Z01.818 Encounter for other preprocedural examination
CPT/HCPCS: 36415; 80053; 85027; 93005